=== PATIENT | male | born 1980 | race Caucasian/White ===

== ENCOUNTER → 2016-12-15 | Outpatient (CLI) | payer MEDICARE, OTHER ==
[2016-12-15 10:13] LABS: EKG EKG PERFORMED
[2016-12-15 10:40] LABS: Basophils # (A) 0.1 k/uL (0-0.2); Basophils % (A) 1 %; CH 32.8; CHCM 32.8; Eosinophils # (A) 0.2 k/uL (0-0.7); Eosinophils % (A) 2 %; HCT 39.7 % (39.0-53.0); HDW 2.41; Luc % (Auto) 3; Lymphocytes # (A) 1.5 k/uL (1.0-4.8); Lymphocytes % (A) 23 %; MCH 32.9 pg (25.0-35.0); MCHC 32.7 g/dL (31.0-37.0); MCV 100.5 fL (80.0-100.0); Mean Platelet Volume 7.4; Monocytes # (A) 0.3 k/uL (0-1.0); Monocytes % (A) 5 %; Neutrophils # (A) 4.5 k/uL (1.3-7.7); Neutrophils % (A) 67 %; RBC 3.95 m/uL (4.30-5.90); RDW 12.6 % (11.5-15.5); WBC 6.8 k/uL (3.8-10.6); WBC (Perox) 7.43
[2016-12-15 10:41] LABS: Luc # (Auto) 0.21
[2016-12-15 11:25] LABS: Anion Gap 12 mmol/L; Blood Urea Nitrogen 12 mg/dL (9-20); Calcium 9.3 mg/dL (8.4-10.2); Carbon Dioxide 22 mmol/L (22-30); Chloride 111 mmol/L (98-107); Glucose 82 mg/dL (74-99); Non-African American GFR(MDRD) >60 (>60 ml/min/1.73 sqM); Potassium 4.8 mmol/L (3.5-5.1); Sodium 145 mmol/L (137-145)
== END | disposition home or self-care (01) ==
LOC: LABPAT 09:30
PROVIDERS: ATTEND Orthopaedic Surgery
DX: Z01.810 Encounter for preprocedural cardiovascular examination (principal); I49.49 Other premature depolarization; I49.8 Other specified cardiac arrhythmias
CPT/HCPCS: 80048; 85025; 93005

== ENCOUNTER 2018-06-27 13:06 | Emergency (ER) | payer MEDICARE, OTHER ==
[2018-06-27] MEDS ORDERED: SODIUM CHLORIDE 0.9% 500 ML IV STA (13:20)
--- NOTE | 2018-06-27 13:23 | ED ---
General Adult HPI - General Stated complaint: Crohns Time Seen by Provider: 06/27/18 13:06 Source: RN notes reviewed - History of Present Illness Initial comments: This is a 37-year-old male who presents emergency Department with a past medical history significant for Crohn's. Patient comes in today stating that he has been coughing quite a bit today and in one of his coughing fits he came extremely short of breath. Patient states she did a breathing treatment home and then called EMS because he was worried because of the significant shortness of breath. Patient states currently is no longer short of breath because he coughed up a bunch of sputum. Patient states he also complains of some epigastric abdominal pain that occasionally radiates up into his chest. Patient states she has quite a bit of abdominal pain on and off because his Crohn's any would not normally come in for this. Since she was here for difficulty breathing he decides to mention it today. Patient denies any fever chills. Patient denies any injury or trauma recently. Patient denies any swelling to the legs or calf tenderness. - Related Data Home Medications Medication Instructions Recorded Confirmed oxyCODONE HCL/ACETAMINOPHEN 1 tab PO Q4-6H PRN 12/11/14 06/27/18 [Percocet 10-325 mg] Previous Rx's Medication Instructions Recorded Azithromycin [Zithromax Tri-Duane] 500 mg PO DAILY #3 tab 06/27/18 Allergies Allergy/AdvReac Type Severity Reaction Status Date / Time infliximab [From Remicade] Allergy Dyspnea Verified 06/27/18 13:14 lactose AdvReac Nausea & Verified 06/27/18 13:14 Vomiting & Diarrhea Review of Systems ROS Statement: Those systems with pertinent positive or pertinent negative responses have been documented in the HPI. ROS Other: All systems not noted in ROS Statement are negative. Past Medical History Past Medical History: GERD/Reflux, Hypertension, Osteoarthritis (OA), Rheumatoid Arthritis (RA) Additional Past Medical History / Comment(s): herniated discs, carpal tunnel, Crohns WITH OSTOMY PLACEMENT DECEMBER 15 2012 History of Any Multi-Drug Resistant Organisms: None Reported Past Surgical History: Bowel Resection Additional Past Surgical History / Comment(s): OSTOMY PLACEMENT DECEMBER 15 2012 Past Anesthesia/Blood Transfusion Reactions: No Reported Reaction Additional Past Anesthesia/Blood Transfusion Reaction / Comment(s): DELIRIUM Past Psychological History: Depression Smoking Status: Current every day smoker Past Alcohol Use History: None Reported Past Drug Use History: Marijuana - Past Family History Mother Family Medical History: Hypertension Father Family Medical History: CVA/TIA, Hypertension General Exam - General Exam Comments Initial Comments: GENERAL: Patient is well-developed and well-nourished. Patient is nontoxic and well- hydrated and is in no acute distress ENT: Neck is soft and supple. No significant lymphadenopathy is noted. Oropharynx is clear. Moist mucous membranes. Neck has full range of motion without eliciting any pain. EYES: The sclera were anicteric and conjunctiva were pink and moist. Extraocular movements were intact and pupils were equal round and reactive to light. Eyelids were unremarkable. PULMONARY: Unlabored respirations. Good breath sounds bilaterally. Patient has some rhonchi in the left base until he coughed and then it was clear. CARDIOVASCULAR: There is a regular rate and rhythm without any murmurs gallops or rubs. ABDOMEN: Soft and nontender with normal bowel sounds. Patient has ileostomy. SKIN: Skin is clear with no lesions or rashes and otherwise unremarkable. NEUROLOGIC: Patient is alert and oriented x3. Cranial nerves II through XII are grossly intact. Motor and sensory are also intact. Normal speech, volume and content. Symmetrical smile. MUSCULOSKELETAL: Normal extremities with adequate strength and full range of motion. LYMPHATICS: No significant lymphadenopathy is noted PSYCHIATRIC: Normal psychiatric evaluation. Course Vital Signs 06/27/18 13:19 Temperature 98.7 F Pulse Rate 73 Respiratory 20 Rate Blood Pressure 140/85 O2 Sat by Pulse 100 Oximetry Medical Decision Making - Medical Decision Making EKG shows normal sinus rhythm at 82 bpm OH interval is 136 QRS 76 QT interval 370 QTC is 432. Patient's EKG shows no ST segment elevation or depression or T wave abnormalities are noted. Patient's chest x-ray shows a nodule in the right upper lobe. Patient still coughing up some sputum so I will put the patient on antibiotics and have him follow-up with his primary medical care doctor. I will begin to reevaluate the patient he was sleeping soundly oxygenating in the high 90s without O2. - Lab Data Result diagrams: 06/27/18 13:26 06/27/18 13:26 Lab Results 06/27/18 06/27/18 06/27/18 Range/Units 13:26 13:26 13:26 WBC 9.9 (3.8-10.6) k/uL RBC 3.94 L (4.30-5.90) m/uL Hgb 13.0 (13.0-17.5) gm/dL Hct 39.4 (39.0-53.0) % MCV 99.8 (80.0-100.0) fL MCH 32.9 (25.0-35.0) pg MCHC 33.0 (31.0-37.0) g/dL RDW 12.3 (11.5-15.5) % Plt Count 176 (150-450) k/uL Neutrophils % 84 % Lymphocytes % 9 % Monocytes % 4 % Eosinophils % 1 % Basophils % 0 % Neutrophils # 8.4 H (1.3-7.7) k/uL Lymphocytes # 0.9 L (1.0-4.8) k/uL Monocytes # 0.4 (0-1.0) k/uL Eosinophils # 0.1 (0-0.7) k/uL Basophils # 0.0 (0-0.2) k/uL PT (9.0-12.0) sec INR (<1.2) APTT (22.0-30.0) sec D-Dimer (<0.60) mg/L FEU Sodium 142 (137-145) mmol/L Potassium 4.2 (3.5-5.1) mmol/L Chloride 110 H (98-107) mmol/L Carbon Dioxide 24 (22-30) mmol/L Anion Gap 8 mmol/L BUN 14 (9-20) mg/dL Creatinine 0.88 (0.66-1.25) mg/dL Est GFR (CKD-EPI)AfAm >90 (>60 ml/min/1.73 sqM) Est GFR (CKD-EPI)NonAf >90 (>60 ml/min/1.73 sqM) Glucose 96 (74-99) mg/dL Calcium 9.0 (8.4-10.2) mg/dL Magnesium 1.7 (1.6-2.3) mg/dL Total Bilirubin 0.5 (0.2-1.3) mg/dL AST 22 (17-59) U/L ALT 25 (21-72) U/L Alkaline Phosphatase 53 (38-126) U/L Total Creatine Kinase 113 (55-170) U/L CK-MB (CK-2) 0.6 (0.0-2.4) ng/mL CK-MB (CK-2) Rel Index 0.5 Troponin I <0.012 (0.000-0.034) ng/mL Total Protein 6.9 (6.3-8.2) g/dL Albumin 3.9 (3.5-5.0) g/dL Amylase 94 (30-110) U/L Lipase 154 (23-300) U/L 06/27/18 Range/Units 13:26 WBC (3.8-10.6) k/uL RBC (4.30-5.90) m/uL Hgb (13.0-17.5) gm/dL Hct (39.0-53.0) % MCV (80.0-100.0) fL MCH (25.0-35.0) pg MCHC (31.0-37.0) g/dL RDW (11.5-15.5) % Plt Count (150-450) k/uL Neutrophils % % Lymphocytes % % Monocytes % % Eosinophils % % Basophils % % Neutrophils # (1.3-7.7) k/uL Lymphocytes # (1.0-4.8) k/uL Monocytes # (0-1.0) k/uL Eosinophils # (0-0.7) k/uL Basophils # (0-0.2) k/uL PT 9.8 (9.0-12.0) sec INR 1.0 (<1.2) APTT 27.2 (22.0-30.0) sec D-Dimer 0.24 (<0.60) mg/L FEU Sodium (137-145) mmol/L Potassium (3.5-5.1) mmol/L Chloride (98-107) mmol/L Carbon Dioxide (22-30) mmol/L Anion Gap mmol/L BUN (9-20) mg/dL Creatinine (0.66-1.25) mg/dL Est GFR (CKD-EPI)AfAm (>60 ml/min/1.73 sqM) Est GFR (CKD-EPI)NonAf (>60 ml/min/1.73 sqM) Glucose (74-99) mg/dL Calcium (8.4-10.2) mg/dL Magnesium (1.6-2.3) mg/dL Total Bilirubin (0.2-1.3) mg/dL AST (17-59) U/L ALT (21-72) U/L Alkaline Phosphatase (38-126) U/L Total Creatine Kinase (55-170) U/L CK-MB (CK-2) (0.0-2.4) ng/mL CK-MB (CK-2) Rel Index Troponin I (0.000-0.034) ng/mL Total Protein (6.3-8.2) g/dL Albumin (3.5-5.0) g/dL Amylase (30-110) U/L Lipase (23-300) U/L Disposition Clinical Impression: Acute bronchitis Disposition: HOME SELF-CARE Condition: Good Instructions: Acute Bronchitis (ED) Prescriptions: Azithromycin [Zithromax Tri-Duane] 500 mg PO DAILY #3 tab Is patient prescribed a controlled substance at d/c from ED?: No Referrals: Cornelius Krishnan DO [Primary Care Provider] - 1-2 days Time of Disposition: 15:32
[2018-06-27 13:25] VITALS: TEMP 98.7
[2018-06-27 13:41] LABS: Basophils % (A) 0 %; Eosinophils # (A) 0.1 k/uL (0-0.7); Eosinophils % (A) 1 %; HCT 39.4 % (39.0-53.0); Lymphocytes # (A) 0.9 k/uL (1.0-4.8); Lymphocytes % (A) 9 %; MCH 32.9 pg (25.0-35.0); MCV 99.8 fL (80.0-100.0); Mean Platelet Volume 6.8; Monocytes # (A) 0.4 k/uL (0-1.0); Monocytes % (A) 4 %; Neutrophils # (A) 8.4 k/uL (1.3-7.7); Neutrophils % (A) 84 %; Platelet Count 176 k/uL (150-450); RBC 3.94 m/uL (4.30-5.90); RDW 12.3 % (11.5-15.5); WBC 9.9 k/uL (3.8-10.6)
[2018-06-27 13:51] LABS: ALT 25 U/L (21-72); AST 22 U/L (17-59); Albumin 3.9 g/dL (3.5-5.0); Alkaline Phosphatase 53 U/L (38-126); Amylase 94 U/L (30-110); Anion Gap 8 mmol/L; Blood Urea Nitrogen 14 mg/dL (9-20); Carbon Dioxide 24 mmol/L (22-30); Chloride 110 mmol/L (98-107); Glucose 96 mg/dL (74-99); Lipase 154 U/L (23-300); Magnesium 1.7 mg/dL (1.6-2.3); Potassium 4.2 mmol/L (3.5-5.1); Sodium 142 mmol/L (137-145); Total Bilirubin 0.5 mg/dL (0.2-1.3); Total Protein 6.9 g/dL (6.3-8.2)
[2018-06-27 13:52] LABS: D-Dimer 0.24 mg/L FEU (<0.60); Prothrombin Time 9.8 sec (9.0-12.0)
[2018-06-27 13:53] LABS: Partial Thromboplastin Time 27.2 sec (22.0-30.0)
[2018-06-27 14:03] LABS: Creatine Kinase 113 U/L (55-170)
[2018-06-27 14:16] LABS: Creatine Kinase MB 0.6 ng/mL (0.0-2.4); Troponin I <0.012 ng/mL (0.000-0.034)
--- NOTE | 2018-06-27 14:32 | XR ---
EXAMINATION TYPE: XR chest 2V DATE OF EXAM: 06/27/2018 COMPARISON: April 2016 HISTORY: Chest pain TECHNIQUE: Frontal and lateral views of the chest are obtained. FINDINGS: There is no focal air space opacity. Nodular density right upper lobe may reflect developing infiltrate. Nodule of other etiology is not e xcluded. Correlate clinically and progress studies are advised. The cardiac silhouette size is within normal limits. The osseous structures are grossly intact. IMPRESSION: 1. Nodular density right upper lobe may reflect developing infiltrate. Nodule of other etiology is n ot excluded. Correlate clinically and progress studies are advised.
[2018-06-27 15:46] VITALS: BP 155/87; PULSE 58; RESP 18
== END 2018-06-27 15:47 | disposition home or self-care (01) ==
LOC: EC 13:06
DX: J20.9 Acute bronchitis, unspecified (principal); R91.1 Solitary pulmonary nodule; M06.9 Rheumatoid arthritis, unspecified; F17.200 Nicotine dependence, unspecified, uncomplicated; Z87.19 Personal history of other diseases of the digestive system; Z88.8 Allergy status to other drugs, medicaments and biological substances; Z91.011 Allergy to milk products
CPT/HCPCS: 36415; 71046; 80053; 82150; 82550; 82553; 83690; 83735; 84484; 85025; 85379; 85610; 85730; 93005; 96360; 99285

== ENCOUNTER 2020-12-19 15:52 | Emergency (ER) | payer MEDICARE, OTHER ==
--- NOTE | 2020-12-19 16:39 | ED ---
Abdominal Pain HPI - General Chief Complaint: Abdominal Pain Stated Complaint: abd pain Time Seen by Provider: 12/19/20 16:06 Source: RN/, RN notes reviewed Mode of arrival: EMS Limitations: no limitations - History of Present Illness Initial Comments: 40-year-old male patient presents to the emergency room via EMS for an exacerbation of his Crohn's disease. Patient has a history of GERD, hypertension, osteoarthritis, rheumatoid arthritis, surgical history of bowel resection in 2012 with ostomy placement for Crohn's. Patient states the past 3 days has had 48 episodes of diarrhea requiring colostomy emptying, in addition to 6 episodes of vomiting yesterday. Patient denies fever or sick contacts. Temperature of 98.2 heart rate 76, blood pressure 121/67 story rate of 18 patient states 8 out of 10 pain after 5 mg of IV morphine by EMS. Patient well- appearing states was seen at [facility] yesterday had a CAT scan and lab work done and was discharged home to follow up. Patient states has primary care doctor appointment tomorrow. Sees Dr. Valverde for gastroenterology. Patient states only came to the emergency room because of pain control. In the past Ania has worked. Complaint: abdominal pain -: days(s) (3) Location: diffuse Radiation: L flank Severity: severe Severity scale (1-10): 8 Quality: sharp Consistency: constant Improves With: nothing Worsens With: vomiting Context: other (crohns disease for 31 years) Associated Symptoms: nausea, vomiting (6 episodes vomiting yesterday, needing to empty colostomy 6-8 times a day), diarrhea Treatments Prior to Arrival: other (morphine by EMS) - Related Data Home Medications Medication Instructions Recorded Confirmed oxyCODONE HCL/ACETAMINOPHEN 1 tab PO Q4-6H PRN 12/11/14 06/27/18 [Percocet 10-325 mg] Albuterol Sulfate [Ventolin HFA] 2 puff INHALATION RT-Q4H PRN 12/19/20 12/19/20 Dicyclomine [Bentyl] 20 mg PO Q6H PRN 12/19/20 12/19/20 Omeprazole [PriLOSEC] 20 mg PO DAILY 12/19/20 12/19/20 amLODIPine [Norvasc] 10 mg PO DAILY 12/19/20 12/19/20 buPROPion XL [Wellbutrin XL] 150 mg PO DAILY 12/19/20 12/19/20 busPIRone HCl [Buspar] 10 mg PO DAILY 12/19/20 12/19/20 predniSONE 50 mg PO DAILY 12/19/20 12/19/20 Allergies Allergy/AdvReac Type Severity Reaction Status Date / Time infliximab [From Remicade] Allergy Anaphylaxis Verified 12/19/20 18:38 lisinopril Allergy Anaphylaxis Verified 12/19/20 18:38 lactose AdvReac Nausea & Verified 12/19/20 18:38 Vomiting & Diarrhea Review of Systems ROS Statement: Those systems with pertinent positive or pertinent negative responses have been documented in the HPI. ROS Other: All systems not noted in ROS Statement are negative. Past Medical History Past Medical History: GERD/Reflux, Hypertension, Osteoarthritis (OA), Rheumatoid Arthritis (RA) Additional Past Medical History / Comment(s): herniated discs, carpal tunnel, Crohns WITH OSTOMY PLACEMENT DECEMBER 15 2012 History of Any Multi-Drug Resistant Organisms: None Reported Past Surgical History: Bowel Resection Additional Past Surgical History / Comment(s): OSTOMY PLACEMENT DECEMBER 15 2012 Past Anesthesia/Blood Transfusion Reactions: No Reported Reaction Additional Past Anesthesia/Blood Transfusion Reaction / Comment(s): DELIRIUM Past Psychological History: Depression Smoking Status: Former smoker Past Alcohol Use History: None Reported Past Drug Use History: Marijuana - Past Family History Mother Family Medical History: Hypertension Father Family Medical History: CVA/TIA, Hypertension General Exam Limitations: no limitations General appearance: alert, in no apparent distress Head exam: Present: atraumatic, normocephalic, normal inspection Eye exam: Present: normal appearance, PERRL, EOMI. Absent: scleral icterus, conjunctival injection, periorbital swelling ENT exam: Present: normal exam, mucous membranes moist Neck exam: Present: normal inspection, full ROM. Absent: tenderness, meningismus, lymphadenopathy, thyromegaly Respiratory exam: Present: normal lung sounds bilaterally. Absent: respiratory distress, wheezes, rales, rhonchi, stridor Cardiovascular Exam: Present: regular rate, normal rhythm, normal heart sounds. Absent: systolic murmur, diastolic murmur, rubs, gallop, clicks GI/Abdominal exam: Present: soft, normal bowel sounds, hyperactive bowel sounds, other (colostomy with yellow/brown liquid stool). Absent: distended, tenderness, guarding, rebound, rigid, mass, hernia Back exam: Present: normal inspection, full ROM, CVA tenderness (L). Absent: tenderness, CVA tenderness (R), rash noted Neurological exam: Present: alert, oriented X3, CN II-XII intact Psychiatric exam: Present: normal affect, normal mood Skin exam: Present: warm, dry, intact, normal color. Absent: rash Course Vital Signs 12/19/20 12/19/20 15:57 18:01 Temperature 98.2 F 98.1 F Pulse Rate 76 78 Respiratory 18 16 Rate Blood Pressure 121/67 132/72 O2 Sat by Pulse 98 99 Oximetry - Reevaluation(s) Reevaluation #1: 12/19/20 18:11 Patient states not feeling better after Zofran and Dilaudid. Did not get relief from morphine by EMS. Patient states pain now is in left lower quadrant and radiates down left leg. Case discussed with Dr. Farias, Records requested from [facility] from yesterday were patient had lab work and a CT of the abdomen. Time: 18:11 Medical Decision Making - Medical Decision Making Case discussed with Dr. Farias. Records obtained from [facility], results stated on 12/17/2020, WBC count was 18.3, hemoglobin 14.2 hematocrit 42.7, BUN of 16 creatinine 1.0 anion gap of 15.0, lipase 191, troponin 0.017, potassium of 5.2, CT impression was no significant acute finding seen to account for patient's clinical symptoms. Stable right ostomy. Spoke with patient at length and assured him that he is not dehydrated, there is no ketones in his urine, wbc down to 10.8, and his hemoglobin and hematocrit are also stable. Patient agreeable to being discharged home and following up with GI this week. - Lab Data Result diagrams: 12/19/20 16:54 12/19/20 16:54 Lab Results 12/19/20 12/19/20 12/19/20 Range/Units 16:54 16:54 16:54 WBC 10.8 H (3.8-10.6) k/uL RBC 4.10 L (4.30-5.90) m/uL Hgb 13.1 (13.0-17.5) gm/dL Hct 39.4 (39.0-53.0) % MCV 96.2 (80.0-100.0) fL MCH 32.1 (25.0-35.0) pg MCHC 33.3 (31.0-37.0) g/dL RDW 13.1 (11.5-15.5) % Plt Count 210 (150-450) k/uL MPV 6.7 Neutrophils % 91 % Lymphocytes % 4 % Monocytes % 3 % Eosinophils % 1 % Basophils % 0 % Neutrophils # 9.8 H (1.3-7.7) k/uL Lymphocytes # 0.4 L (1.0-4.8) k/uL Monocytes # 0.3 (0-1.0) k/uL Eosinophils # 0.1 (0-0.7) k/uL Basophils # 0.0 (0-0.2) k/uL Sodium 138 (137-145) mmol/L Potassium 4.7 (3.5-5.1) mmol/L Chloride 106 (98-107) mmol/L Carbon Dioxide 27 (22-30) mmol/L Anion Gap 5 mmol/L BUN 19 (9-20) mg/dL Creatinine 0.80 (0.66-1.25) mg/dL Est GFR (CKD-EPI)AfAm >90 (>60 ml/min/1.73 sqM) Est GFR (CKD-EPI)NonAf >90 (>60 ml/min/1.73 sqM) Glucose 127 H (74-99) mg/dL Plasma Lactic Acid Jonathan (0.7-2.0) mmol/L Calcium 9.4 (8.4-10.2) mg/dL Total Bilirubin 0.4 (0.2-1.3) mg/dL AST 23 (17-59) U/L ALT 12 (4-49) U/L Alkaline Phosphatase 38 (38-126) U/L Total Protein 6.7 (6.3-8.2) g/dL Albumin 4.2 (3.5-5.0) g/dL Amylase 109 (30-110) U/L Lipase 287 (23-300) U/L Urine Color Yellow Urine Appearance Clear (Clear) Urine pH 5.5 (5.0-8.0) Ur Specific [place] 1.020 (1.001-1.035) Urine Protein Trace H (Negative) Urine Glucose (UA) Negative (Negative) Urine Ketones Negative (Negative) Urine Blood Trace H (Negative) Urine Nitrite Negative (Negative) Urine Bilirubin Negative (Negative) Urine Urobilinogen <2.0 (<2.0) mg/dL Ur Leukocyte Esterase Negative (Negative) Urine RBC 1 (0-5) /hpf Urine WBC <1 (0-5) /hpf Urine Mucus Rare H (None) /hpf 12/19/20 Range/Units 16:54 WBC (3.8-10.6) k/uL RBC (4.30-5.90) m/uL Hgb (13.0-17.5) gm/dL Hct (39.0-53.0) % MCV (80.0-100.0) fL MCH (25.0-35.0) pg MCHC (31.0-37.0) g/dL RDW (11.5-15.5) % Plt Count (150-450) k/uL MPV Neutrophils % % Lymphocytes % % Monocytes % % Eosinophils % % Basophils % % Neutrophils # (1.3-7.7) k/uL Lymphocytes # (1.0-4.8) k/uL Monocytes # (0-1.0) k/uL Eosinophils # (0-0.7) k/uL Basophils # (0-0.2) k/uL Sodium (137-145) mmol/L Potassium (3.5-5.1) mmol/L Chloride (98-107) mmol/L Carbon Dioxide (22-30) mmol/L Anion Gap mmol/L BUN (9-20) mg/dL Creatinine (0.66-1.25) mg/dL Est GFR (CKD-EPI)AfAm (>60 ml/min/1.73 sqM) Est GFR (CKD-EPI)NonAf (>60 ml/min/1.73 sqM) Glucose (74-99) mg/dL Plasma Lactic Acid Jonathan 1.0 (0.7-2.0) mmol/L Calcium (8.4-10.2) mg/dL Total Bilirubin (0.2-1.3) mg/dL AST (17-59) U/L ALT (4-49) U/L Alkaline Phosphatase (38-126) U/L Total Protein (6.3-8.2) g/dL Albumin (3.5-5.0) g/dL Amylase (30-110) U/L Lipase (23-300) U/L Urine Color Urine Appearance (Clear) Urine pH (5.0-8.0) Ur Specific [place] (1.001-1.035) Urine Protein (Negative) Urine Glucose (UA) (Negative) Urine Ketones (Negative) Urine Blood (Negative) Urine Nitrite (Negative) Urine Bilirubin (Negative) Urine Urobilinogen (<2.0) mg/dL Ur Leukocyte Esterase (Negative) Urine RBC (0-5) /hpf Urine WBC (0-5) /hpf Urine Mucus (None) /hpf Disposition Clinical Impression: Abdominal pain in male Disposition: HOME SELF-CARE Condition: Good Instructions (If sedation given, give patient instructions): Abdominal Pain (ED) Additional Instructions: Follow-up with her psychometric examiner this week. Continue to increase fluids, return if fever or worsening pain Is patient prescribed a controlled substance at d/c from ED?: No Referrals: Emile Rodríguez MD [Primary Care Provider] - 1-2 days Rene Ray MD [STAFF PHYSICIAN] - 1-2 days Time of Disposition: 18:48
[2020-12-19 17:03] LABS: Basophils % (A) 0 %; Eosinophils # (A) 0.1 k/uL (0-0.7); Eosinophils % (A) 1 %; HCT 39.4 % (39.0-53.0); HGB 13.1 gm/dL (13.0-17.5); Lymphocytes # (A) 0.4 k/uL (1.0-4.8); Lymphocytes % (A) 4 %; MCH 32.1 pg (25.0-35.0); MCHC 33.3 g/dL (31.0-37.0); MCV 96.2 fL (80.0-100.0); Mean Platelet Volume 6.7; Monocytes # (A) 0.3 k/uL (0-1.0); Monocytes % (A) 3 %; Neutrophils # (A) 9.8 k/uL (1.3-7.7); Neutrophils % (A) 91 %; Platelet Count 210 k/uL (150-450); RDW 13.1 % (11.5-15.5); WBC 10.8 k/uL (3.8-10.6)
[2020-12-19 17:08] LABS: Appearance,Urine Clear (Clear); Bilirubin,Urine Negative (Negative); Blood,Urine Trace (Negative); Color,Urine Yellow; Glucose,Urine (UA) Negative (Negative); Ketones,Urine Negative (Negative); Leukocyte Esterase,Urine Negative (Negative); Mucus,Urine Rare /hpf; Nitrite,Urine Negative (Negative); PH, Urine 5.5 (5.0-8.0); Protein,Urine Trace (Negative); RBC,Urine 1 /hpf (0-5); Urobilinogen,Urine <2.0 mg/dL (<2.0); WBC,Urine <1 /hpf (0-5)
[2020-12-19 17:12] LABS: ALT 12 U/L (4-49); AST 23 U/L (17-59); African American GFR (CKD) >90 (>60 ml/min/1.73 sqM); Albumin 4.2 g/dL (3.5-5.0); Alkaline Phosphatase 38 U/L (38-126); Amylase 109 U/L (30-110); Anion Gap 5 mmol/L; Blood Urea Nitrogen 19 mg/dL (9-20); Calcium 9.4 mg/dL (8.4-10.2); Carbon Dioxide 27 mmol/L (22-30); Chloride 106 mmol/L (98-107); Glucose 127 mg/dL (74-99); Lipase 287 U/L (23-300); Non-African American GFR(CKD) >90 (>60 ml/min/1.73 sqM); Potassium 4.7 mmol/L (3.5-5.1); Sodium 138 mmol/L (137-145); Total Bilirubin 0.4 mg/dL (0.2-1.3); Total Protein 6.7 g/dL (6.3-8.2)
--- NOTE | 2020-12-19 17:25 | XR ---
EXAM: Abdomen radiograph. HISTORY: Pain. TECHNIQUE: Upright AP view. COMPARISON: 12/17/2015. FINDINGS: There is paucity of bowel gas with a nonobstructive pattern. No pneumoperitoneum. There are no pathol ogic calcifications. No acute osseous abnormality seen. IMPRESSION: No acute process.
[2020-12-19] MEDS ORDERED: ONDANSETRON 4 MG/2 ML VIAL IVP STA (17:33)
[2020-12-19] MEDS ORDERED: HYDROmorphone 0.5 MG/0.5 ML SYRINGE IVP STA (17:33)
[2020-12-19 18:02] VITALS: RESP 16
[2020-12-19 19:01] VITALS: BP 124/82; PULSE 63; TEMP 98
== END 2020-12-19 19:01 | disposition home or self-care (01) ==
LOC: EC 15:52
DX: R10.9 Unspecified abdominal pain (principal); I10 Essential (primary) hypertension; K21.9 Gastro-esophageal reflux disease without esophagitis; M19.90 Unspecified osteoarthritis, unspecified site; F12.90 Cannabis use, unspecified, uncomplicated; F32.9 Major depressive disorder, single episode, unspecified; Z79.52 Long term (current) use of systemic steroids; Z79.899 Other long term (current) drug therapy; Z87.891 Personal history of nicotine dependence
CPT/HCPCS: 36415; 80053; 82150; 83605; 83690; 85025; 81001; 74018; 99284; 96374; 96375; J2405; J1170

== ENCOUNTER 2021-02-02 08:32 | Emergency (ER) | payer MEDICARE, OTHER ==
[2021-02-02] MEDS ORDERED: methylPREDNISolone SOD SUCCI 125 MG/2 ML VIAL IV STA ×2 (08:45→09:38)
[2021-02-02] MEDS ORDERED: SODIUM CHLORIDE 0.9% 1,000 ML IV STA (08:45)
[2021-02-02] MEDS ORDERED: ONDANSETRON 4 MG/2 ML VIAL IVP STA (08:45)
--- NOTE | 2021-02-02 09:10 | ED ---
Abdominal Pain HPI - General Chief Complaint: Abdominal Pain Stated Complaint: abd pain Time Seen by Provider: 02/02/21 08:35 Source: patient, EMS, RN notes reviewed Mode of arrival: ambulatory Limitations: no limitations - History of Present Illness Initial Comments: 40-year-old male presents emergency Department via EMS with chief complaint abdominal pain. Patient states that he has a history of Crohn's feels like he is having Crohn's flareup. He believes this started after not taking his prednisone for a few [place]. He states takes 50 mg of prednisone daily. Patient does have an ileostomy states that he has high output which is normal for him. Patient denies any fevers chills no chest pain or shortness of breath. Patient had decreased urine output states that he did have renal failure in the past but states he was unsure what caused it at that time. - Related Data Home Medications Medication Instructions Recorded Confirmed oxyCODONE HCL/ACETAMINOPHEN 1 tab PO TID PRN 12/11/14 02/02/21 [Percocet 10-325 mg] Albuterol Sulfate [Ventolin HFA] 2 puff INHALATION RT-Q4H PRN 12/19/20 02/02/21 Dicyclomine [Bentyl] 20 mg PO Q6H PRN 12/19/20 02/02/21 Omeprazole [PriLOSEC] 20 mg PO DAILY 12/19/20 02/02/21 amLODIPine [Norvasc] 10 mg PO DAILY 12/19/20 02/02/21 buPROPion XL [Wellbutrin XL] 150 mg PO DAILY 12/19/20 02/02/21 busPIRone HCl [Buspar] 10 mg PO BID PRN 12/19/20 02/02/21 predniSONE 50 mg PO DAILY 12/19/20 02/02/21 Previous Rx's Medication Instructions Recorded Ondansetron Odt [Zofran Odt] 4 mg PO Q8HR PRN #10 tab 02/02/21 Allergies Allergy/AdvReac Type Severity Reaction Status Date / Time infliximab [From Remicade] Allergy Anaphylaxis Verified 02/02/21 09:48 lisinopril Allergy Anaphylaxis Verified 02/02/21 09:48 lactose AdvReac Nausea & Verified 02/02/21 09:48 Vomiting & Diarrhea Review of Systems ROS Statement: Those systems with pertinent positive or pertinent negative responses have been documented in the HPI. ROS Other: All systems not noted in ROS Statement are negative. Past Medical History Past Medical History: GERD/Reflux, Hypertension, Osteoarthritis (OA), Rheumatoid Arthritis (RA) Additional Past Medical History / Comment(s): herniated discs, carpal tunnel, Crohns WITH OSTOMY PLACEMENT DECEMBER 15 2012 History of Any Multi-Drug Resistant Organisms: None Reported Past Surgical History: Bowel Resection Additional Past Surgical History / Comment(s): OSTOMY PLACEMENT DECEMBER 15 2012 Past Anesthesia/Blood Transfusion Reactions: No Reported Reaction Additional Past Anesthesia/Blood Transfusion Reaction / Comment(s): DELIRIUM Past Psychological History: Depression Smoking Status: Former smoker Past Alcohol Use History: None Reported Past Drug Use History: Marijuana - Past Family History Mother Family Medical History: Hypertension Father Family Medical History: CVA/TIA, Hypertension General Exam Limitations: no limitations General appearance: alert, in no apparent distress Head exam: Present: atraumatic, normocephalic, normal inspection Eye exam: Present: normal appearance, PERRL, EOMI. Absent: scleral icterus, conjunctival injection, periorbital swelling Respiratory exam: Present: normal lung sounds bilaterally. Absent: respiratory distress, wheezes, rales, rhonchi, stridor Cardiovascular Exam: Present: regular rate, normal rhythm, normal heart sounds. Absent: systolic murmur, diastolic murmur, rubs, gallop, clicks GI/Abdominal exam: Present: soft, tenderness (Mild left lower quadrant with some diffuse minimal tenderness), normal bowel sounds. Absent: distended, guarding, rebound, rigid Back exam: Absent: CVA tenderness (R), CVA tenderness (L) Neurological exam: Present: alert Skin exam: Present: warm, dry, intact, normal color. Absent: rash Course Vital Signs 02/02/21 02/02/21 02/02/21 08:41 08:56 09:34 Temperature 98.7 F Pulse Rate 82 74 Respiratory 20 Rate Blood Pressure 120/89 123/80 O2 Sat by Pulse 98 Oximetry 02/02/21 11:08 Temperature Pulse Rate 85 Respiratory 18 Rate Blood Pressure 155/72 O2 Sat by Pulse 98 Oximetry Medical Decision Making - Medical Decision Making 40-year-old presented for abdominal pain. CT shows mildly dilated pancreatic duct he has no upper abdominal pain. Patient will follow palpation for ERCP. Patient was given pain meds fluids antiemetics feels better will be discharged stable condition. Patient advised to follow-up on Wednesday return for any worsening change in symptoms. Patient agrees this plan. - Lab Data Result diagrams: 02/02/21 08:58 02/02/21 08:58 Lab Results 02/02/21 02/02/21 02/02/21 Range/Units 08:58 08:58 08:58 WBC 14.9 H (3.8-10.6) k/uL RBC 4.41 (4.30-5.90) m/uL Hgb 14.5 (13.0-17.5) gm/dL Hct 41.6 (39.0-53.0) % MCV 94.4 (80.0-100.0) fL MCH 32.9 (25.0-35.0) pg MCHC 34.8 (31.0-37.0) g/dL RDW 12.3 (11.5-15.5) % Plt Count 171 (150-450) k/uL MPV 6.7 Neutrophils % 84 % Lymphocytes % 6 % Monocytes % 7 % Eosinophils % 1 % Basophils % 0 % Neutrophils # 12.5 H (1.3-7.7) k/uL Lymphocytes # 0.9 L (1.0-4.8) k/uL Monocytes # 1.1 H (0-1.0) k/uL Eosinophils # 0.2 (0-0.7) k/uL Basophils # 0.0 (0-0.2) k/uL Sodium 136 L (137-145) mmol/L Potassium 4.6 (3.5-5.1) mmol/L Chloride 104 (98-107) mmol/L Carbon Dioxide 24 (22-30) mmol/L Anion Gap 8 mmol/L BUN 21 H (9-20) mg/dL Creatinine 0.98 (0.66-1.25) mg/dL Est GFR (CKD-EPI)AfAm >90 (>60 ml/min/1.73 sqM) Est GFR (CKD-EPI)NonAf >90 (>60 ml/min/1.73 sqM) Glucose 82 (74-99) mg/dL Plasma Lactic Acid Jonathan 0.9 (0.7-2.0) mmol/L Calcium 9.2 (8.4-10.2) mg/dL Total Bilirubin 0.9 (0.2-1.3) mg/dL AST 32 (17-59) U/L ALT 12 (4-49) U/L Alkaline Phosphatase 38 (38-126) U/L Total Protein 6.8 (6.3-8.2) g/dL Albumin 4.1 (3.5-5.0) g/dL Amylase 92 (30-110) U/L Lipase 148 (23-300) U/L Disposition Clinical Impression: Abdominal pain, Crohn's disease Disposition: HOME SELF-CARE Condition: Stable Instructions (If sedation given, give patient instructions): Abdominal Pain (ED) Additional Instructions: Please return to the Emergency Department if symptoms worsen or any other concerns. Prescriptions: Ondansetron Odt [Zofran Odt] 4 mg PO Q8HR PRN #10 tab PRN Reason: Nausea Is patient prescribed a controlled substance at d/c from ED?: No Referrals: Emile Rodríguez MD [Primary Care Provider] - 1-2 days Rene Ray MD [STAFF PHYSICIAN] - 1-2 days Time of Disposition: 11:11
[2021-02-02] MEDS ORDERED: MORPHINE SULFATE 4 MG/ML SYRINGE IVP STA (09:11)
[2021-02-02 09:27] LABS: Basophils % (A) 0 %; Eosinophils # (A) 0.2 k/uL (0-0.7); Eosinophils % (A) 1 %; HCT 41.6 % (39.0-53.0); HGB 14.5 gm/dL (13.0-17.5); Lymphocytes # (A) 0.9 k/uL (1.0-4.8); Lymphocytes % (A) 6 %; MCH 32.9 pg (25.0-35.0); MCHC 34.8 g/dL (31.0-37.0); MCV 94.4 fL (80.0-100.0); Mean Platelet Volume 6.7; Monocytes # (A) 1.1 k/uL (0-1.0); Monocytes % (A) 7 %; Neutrophils # (A) 12.5 k/uL (1.3-7.7); Neutrophils % (A) 84 %; Platelet Count 171 k/uL (150-450); RBC 4.41 m/uL (4.30-5.90); RDW 12.3 % (11.5-15.5); WBC 14.9 k/uL (3.8-10.6)
[2021-02-02 09:42] LABS: ALT 12 U/L (4-49); African American GFR (CKD) >90 (>60 ml/min/1.73 sqM); Albumin 4.1 g/dL (3.5-5.0); Amylase 92 U/L (30-110); Anion Gap 8 mmol/L; Blood Urea Nitrogen 21 mg/dL (9-20); Calcium 9.2 mg/dL (8.4-10.2); Carbon Dioxide 24 mmol/L (22-30); Chloride 104 mmol/L (98-107); Glucose 82 mg/dL (74-99); Lipase 148 U/L (23-300); Non-African American GFR(CKD) >90 (>60 ml/min/1.73 sqM); Sodium 136 mmol/L (137-145); Total Bilirubin 0.9 mg/dL (0.2-1.3); Total Protein 6.8 g/dL (6.3-8.2)
[2021-02-02 09:48] LABS: AST 32 U/L (17-59); Alkaline Phosphatase 38 U/L (38-126); Potassium 4.6 mmol/L (3.5-5.1)
--- NOTE | 2021-02-02 11:07 | CT ---
EXAMINATION TYPE: CT abdomen pelvis w con DATE OF EXAM: 02/02/2021 COMPARISON: 10/21/2015 INDICATION: Abdominal pain with nausea DLP: 548 mGycm, Automated exposure control for dose reduction was used. CONTRAST: 100 mL of Isovue 300. Study performed without Oral Contrast TECHNIQUE: Axial images were obtained from above the diaphragm to the pubic rami in the axial plane a t 5 mm thick sections. Reconstructed images are reviewed on the computer in the coronal plane. FINDINGS: Limited CT sections are obtained the lung bases. The lung bases are clear. CT ABDOMEN: There is an ostomy in the right lower quadrant. Liver: Normal Spleen: Normal Pancreas: Pancreatic duct within the head and body are prominent. No abrupt cut off is identified. Co nsider follow-up with ERCP. Adrenal glands: The adrenal glands are normal. Gallbladder: Normal Kidneys: No masses are evident. No hydronephrosis is present. No cysts are present. Delayed images were obtained through the kidneys, which remain unremarkable. Aorta: Normal Inferior vena cava: Normal. CT PELVIS: Loops of bowel within the abdomen and pelvis are normal. There is been a colectomy. Rectal stump is u nremarkable. Ileostomy is in the right lower quadrant. The study is without oral contrast limiting evaluation. Appendix: Not visualized Urinary bladder: Normal. Genitourinary structures: Osseous prominent. Some prostate calcification is present. Osseous structures: No suspicious lytic or sclerotic lesions. IMPRESSIONS: 1. Prominent pancreatic duct. Consider follow-up with ERCP. 2. Right lower quadrant ileostomy. 3. No suspicious acute changes within the abdomen and pelvis otherwise evident.
[2021-02-02] MEDS ORDERED: ACET/COD 300 MG/30 MG STARTER PACK 6 TAB BTL PO STA (11:11)
[2021-02-02 11:39] VITALS: BP 122/80; PULSE 71; RESP 16; TEMP 98.4
== END 2021-02-02 11:47 | disposition home or self-care (01) ==
LOC: EC 08:32
DX: K50.90 Crohn's disease, unspecified, without complications (principal); I10 Essential (primary) hypertension; K21.9 Gastro-esophageal reflux disease without esophagitis; M06.9 Rheumatoid arthritis, unspecified; Z79.52 Long term (current) use of systemic steroids; Z87.891 Personal history of nicotine dependence; F12.90 Cannabis use, unspecified, uncomplicated
CPT/HCPCS: 80053; 82150; 83605; 83690; 85025; 74177; 99284; 96374; 96375; 96361 ×3; J2270; J2930; Q9967

== ENCOUNTER 2021-02-12 17:13 | Emergency (ER) | payer MEDICARE, OTHER ==
[2021-02-12 17:18] VITALS: TEMP 98
[2021-02-12] MEDS ORDERED: ONDANSETRON 4 MG/2 ML VIAL IVP STA (18:06)
[2021-02-12] MEDS ORDERED: KETOROLAC 15 MG/ML 1 ML VIAL IVP STA (18:06)
[2021-02-12] MEDS ORDERED: SODIUM CHLORIDE 0.9% 1,000 ML IV STA (18:06)
--- NOTE | 2021-02-12 18:31 | ED ---
Abdominal Pain HPI - General Chief Complaint: Abdominal Pain Stated Complaint: lt sided abd pain Time Seen by Provider: 02/12/21 17:39 Source: patient Mode of arrival: ambulatory Limitations: no limitations - History of Present Illness Initial Comments: Patient is a 40-year-old male with history of Crohn's, presenting to the emergency Department with complaints of intermittent left-sided abdominal pain for the last 2 weeks. Patient was seen in the ER 10 days ago for similar complaint, he had normal workup, normal CT. He was also follow up with his GI doctor but has not yet, said he keeps forgetting to call. He admits to some nausea, some intermittent vomiting. He states he has been taking his medications as prescribed. He states he's been able to tolerate some fluids, he is able to hold down liquids. He denies any fevers or chills, no chest pain or shortness of breath. He states he's also been having some irritation around his ileostomy. Patient has no further complaints at this time. Upon arrival to the ER his vital signs are stable. - Related Data Home Medications Medication Instructions Recorded Confirmed oxyCODONE HCL/ACETAMINOPHEN 1 tab PO TID 12/11/14 02/12/21 [Percocet 10-325 mg] Albuterol Sulfate [Ventolin HFA] 2 puff INHALATION RT-Q4H PRN 12/19/20 02/12/21 Dicyclomine [Bentyl] 20 mg PO DAILY 12/19/20 02/12/21 Omeprazole [PriLOSEC] 20 mg PO DAILY 12/19/20 02/12/21 amLODIPine [Norvasc] 10 mg PO DAILY 12/19/20 02/12/21 buPROPion XL [Wellbutrin XL] 150 mg PO DAILY 12/19/20 02/12/21 busPIRone HCl [Buspar] 10 mg PO DAILY 12/19/20 02/12/21 predniSONE 50 mg PO DAILY 12/19/20 02/12/21 Previous Rx's Medication Instructions Recorded Ondansetron Odt [Zofran Odt] 4 mg PO Q8HR PRN #10 tab 02/12/21 Allergies Allergy/AdvReac Type Severity Reaction Status Date / Time infliximab [From Remicade] Allergy Anaphylaxis Verified 02/12/21 18:24 lisinopril Allergy Anaphylaxis Verified 02/12/21 18:24 lactose AdvReac Nausea & Verified 02/12/21 18:24 Vomiting & Diarrhea NSAIDS (Non-Steroidal AdvReac Unknown Verified 02/12/21 18:24 Anti-Inflamma Review of Systems ROS Statement: Those systems with pertinent positive or pertinent negative responses have been documented in the HPI. ROS Other: All systems not noted in ROS Statement are negative. Past Medical History Past Medical History: GERD/Reflux, Hypertension, Osteoarthritis (OA), Rheumatoid Arthritis (RA) Additional Past Medical History / Comment(s): herniated discs, carpal tunnel, Crohns WITH OSTOMY PLACEMENT DECEMBER 15 2012 History of Any Multi-Drug Resistant Organisms: None Reported, C-DIFF MDRO Source:: 2018 Past Surgical History: Bowel Resection Additional Past Surgical History / Comment(s): OSTOMY PLACEMENT DECEMBER 15 2012 Past Anesthesia/Blood Transfusion Reactions: No Reported Reaction Additional Past Anesthesia/Blood Transfusion Reaction / Comment(s): DELIRIUM Past Psychological History: Depression Smoking Status: Former smoker Past Alcohol Use History: None Reported Past Drug Use History: Marijuana - Past Family History Mother Family Medical History: Hypertension Father Family Medical History: CVA/TIA, Hypertension General Exam - General Exam Comments Initial Comments: GENERAL: Patient is well-developed and well-nourished. Patient is nontoxic and in no acute distress. HEAD: Atraumatic, normocephalic. EYES: Pupils equal round and reactive to light, extraocular movements intact, sclera anicteric, conjunctiva are normal. Eyelids were unremarkable. ENT: TMs normal, nares patent, oropharynx clear without exudates. Moist mucous membranes. NECK: Normal range of motion, supple without lymphadenopathy or JVD. LUNGS: Unlabored respirations. Breath sounds clear to auscultation bilaterally and equal. No wheezes rales or rhonchi. HEART: Regular rate and rhythm without murmurs, rubs or gallops. ABDOMEN: Soft, some mild tenderness left side of the abdomen but no severe pain, ileostomy looks well, no signs of infection around. normoactive bowel sounds. No guarding, no rebound. No masses appreciated. : Deferred MUSCULOSKELETAL: Normal extremities with adequate strength and normal range of motion, no pitting or edema. No clubbing or cyanosis. NEUROLOGICAL: Patient is alert and oriented x 3. Motor and sensory are also intact. Cranial nerves II through XII grossly intact. Symmetrical smile. Normal speech, normal gait. PSYCH: Normal mood, normal affect. SKIN: Warm, Dry, normal turgor, no rashes or lesions noted. Limitations: no limitations Course Vital Signs 02/12/21 02/12/21 17:14 19:39 Temperature 98 F Pulse Rate 119 H 75 Respiratory 18 16 Rate Blood Pressure 144/87 118/81 O2 Sat by Pulse 98 97 Oximetry Medical Decision Making - Medical Decision Making Patient is a 40-year-old male with history of Crohn's, presenting for intermittent left-sided abdominal pain over the past 2 weeks. He has was seen and evaluated here 10 days ago, had normal CT and labs. He has not fallen up with his GI doctor. He was noncompliant with medications at that time, he states he has been taking them over the past week and does not feel any better. He has been nauseous. His vital signs are stable, afebrile. Labs show a normal white count, lactic acid, elevated at 2.8, most likely dehydration, no signs of an active infection, lipase is also slightly elevated at 332. KUB shows no acute process. Patient was given a liter and half of fluids, Zofran and pain control. He reports major improvement in his symptoms, his pain is very minimal at this time. I recommended continuing to increase his fluids, liquid diet for one to 2 days. He will follow-up with his GI doctor within a few days. He is stable for discharge and he is in agreement with this plan of care. Return para meters were discussed with the patient and he verbalized understanding. Case discussed with Dr. Carreno. - Lab Data Result diagrams: 02/12/21 18:16 02/12/21 18:16 Lab Results 02/12/21 02/12/21 02/12/21 Range/Units 18:16 18:16 18:16 WBC 10.4 (3.8-10.6) k/uL RBC 4.08 L (4.30-5.90) m/uL Hgb 13.4 (13.0-17.5) gm/dL Hct 38.8 L (39.0-53.0) % MCV 95.2 (80.0-100.0) fL MCH 32.8 (25.0-35.0) pg MCHC 34.4 (31.0-37.0) g/dL RDW 12.5 (11.5-15.5) % Plt Count 268 (150-450) k/uL MPV 6.6 Neutrophils % 94 % Lymphocytes % 3 % Monocytes % 2 % Eosinophils % 1 % Basophils % 0 % Neutrophils # 9.7 H (1.3-7.7) k/uL Lymphocytes # 0.3 L (1.0-4.8) k/uL Monocytes # 0.2 (0-1.0) k/uL Eosinophils # 0.1 (0-0.7) k/uL Basophils # 0.0 (0-0.2) k/uL Sodium 137 (137-145) mmol/L Potassium 4.2 (3.5-5.1) mmol/L Chloride 103 (98-107) mmol/L Carbon Dioxide 24 (22-30) mmol/L Anion Gap 10 mmol/L BUN 21 H (9-20) mg/dL Creatinine 1.17 (0.66-1.25) mg/dL Est GFR (CKD-EPI)AfAm 89 (>60 ml/min/1.73 sqM) Est GFR (CKD-EPI)NonAf 77 (>60 ml/min/1.73 sqM) Glucose 174 H (74-99) mg/dL Plasma Lactic Acid Jonathan 2.8 H* (0.7-2.0) mmol/L Calcium 10.1 (8.4-10.2) mg/dL Total Bilirubin 0.1 L (0.2-1.3) mg/dL AST 24 (17-59) U/L ALT 17 (4-49) U/L Alkaline Phosphatase 44 (38-126) U/L Total Protein 6.6 (6.3-8.2) g/dL Albumin 4.3 (3.5-5.0) g/dL Lipase 332 H (23-300) U/L Disposition Clinical Impression: Nausea & vomiting, Dehydration, Crohn's disease Disposition: HOME SELF-CARE Condition: Stable Instructions (If sedation given, give patient instructions): Dehydration (ED) Additional Instructions: Please return to the Emergency Department if symptoms worsen or any other concerns. May take Zofran for any additional nausea. Please follow up with GI as discussed. Prescriptions: Ondansetron Odt [Zofran Odt] 4 mg PO Q8HR PRN #10 tab PRN Reason: Nausea Is patient prescribed a controlled substance at d/c from ED?: No Referrals: Emile Rodríguez MD [Primary Care Provider] - 1-2 days Rene Ray MD [STAFF PHYSICIAN] - 1-2 days Time of Disposition: 20:27
[2021-02-12 18:36] LABS: Basophils % (A) 0 %; Eosinophils # (A) 0.1 k/uL (0-0.7); Eosinophils % (A) 1 %; HCT 38.8 % (39.0-53.0); HGB 13.4 gm/dL (13.0-17.5); Lymphocytes # (A) 0.3 k/uL (1.0-4.8); Lymphocytes % (A) 3 %; MCH 32.8 pg (25.0-35.0); MCHC 34.4 g/dL (31.0-37.0); MCV 95.2 fL (80.0-100.0); Mean Platelet Volume 6.6; Monocytes # (A) 0.2 k/uL (0-1.0); Monocytes % (A) 2 %; Neutrophils # (A) 9.7 k/uL (1.3-7.7); Neutrophils % (A) 94 %; Platelet Count 268 k/uL (150-450); RBC 4.08 m/uL (4.30-5.90); RDW 12.5 % (11.5-15.5); WBC 10.4 k/uL (3.8-10.6)
[2021-02-12 18:45] LABS: Albumin 4.3 g/dL (3.5-5.0); Calcium 10.1 mg/dL (8.4-10.2); Total Bilirubin 0.1 mg/dL (0.2-1.3); Total Protein 6.6 g/dL (6.3-8.2)
[2021-02-12 18:53] LABS: Potassium 4.2 mmol/L (3.5-5.1)
[2021-02-12] MEDS ORDERED: SODIUM CHLORIDE 0.9% 500 ML 500 ML IV STA (19:14)
[2021-02-12] MEDS ORDERED: MORPHINE SULFATE 4 MG/ML SYRINGE IVP STA (19:14)
--- NOTE | 2021-02-12 19:15 | XR ---
EXAM: Abdomen radiograph. HISTORY: Pain. TECHNIQUE: Upright AP view. COMPARISON: 12/19/2020. FINDINGS: There is paucity of bowel gas with a nonobstructive pattern. No pneumoperitoneum. There are no pathol ogic calcifications. No acute osseous abnormality seen. IMPRESSION: No acute process seen.
[2021-02-12 19:40] VITALS: BP 118/81; PULSE 75; RESP 16
== END 2021-02-12 20:50 | disposition home or self-care (01) ==
LOC: EC 17:13
DX: K50.90 Crohn's disease, unspecified, without complications (principal); E86.0 Dehydration; K21.9 Gastro-esophageal reflux disease without esophagitis; I10 Essential (primary) hypertension; M06.9 Rheumatoid arthritis, unspecified; M19.90 Unspecified osteoarthritis, unspecified site; Z87.891 Personal history of nicotine dependence; Z79.52 Long term (current) use of systemic steroids; Z79.899 Other long term (current) drug therapy; Z82.49 Family history of ischemic heart disease and other diseases of the circulatory system; Z88.6 Allergy status to analgesic agent; Z88.8 Allergy status to other drugs, medicaments and biological substances
CPT/HCPCS: 99284; 96374; 96375 ×2; 96361; 80053; 83605; 83690; 85025; 74018; J2270; J2405; J1885

== ENCOUNTER 2021-03-04 14:17 | Emergency (ER) | payer MEDICARE, OTHER ==
[2021-03-04 14:21] VITALS: RESP 16; TEMP 98.1
[2021-03-04] MEDS ORDERED: ONDANSETRON 4 MG/2 ML VIAL IVP STA (14:35)
[2021-03-04] MEDS ORDERED: SODIUM CHLORIDE 0.9% 1,000 ML IV STA (14:35)
[2021-03-04] MEDS ORDERED: MORPHINE SULFATE 4 MG/ML SYRINGE IV STA (14:35)
[2021-03-04 14:55] LABS: Basophils # (A) 0.1 k/uL (0-0.2); Basophils % (A) 1 %; Eosinophils # (A) 0.1 k/uL (0-0.7); Eosinophils % (A) 1 %; HCT 42.2 % (39.0-53.0); HGB 14.4 gm/dL (13.0-17.5); Lymphocytes # (A) 0.5 k/uL (1.0-4.8); Lymphocytes % (A) 4 %; MCH 32.2 pg (25.0-35.0); MCV 94.6 fL (80.0-100.0); Mean Platelet Volume 6.7; Monocytes # (A) 0.2 k/uL (0-1.0); Monocytes % (A) 2 %; Neutrophils # (A) 11.2 k/uL (1.3-7.7); Neutrophils % (A) 92 %; Platelet Count 250 k/uL (150-450); RBC 4.47 m/uL (4.30-5.90); RDW 13.2 % (11.5-15.5); WBC 12.1 k/uL (3.8-10.6)
[2021-03-04 15:09] LABS: ALT 17 U/L (4-49); AST 23 U/L (17-59); African American GFR (CKD) >90 (>60 ml/min/1.73 sqM); Albumin 4.2 g/dL (3.5-5.0); Alkaline Phosphatase 48 U/L (38-126); Amylase 133 U/L (30-110); Anion Gap 7 mmol/L; Blood Urea Nitrogen 16 mg/dL (9-20); Calcium 9.6 mg/dL (8.4-10.2); Carbon Dioxide 25 mmol/L (22-30); Chloride 107 mmol/L (98-107); Glucose 134 mg/dL (74-99); Lipase 217 U/L (23-300); Non-African American GFR(CKD) >90 (>60 ml/min/1.73 sqM); Sodium 139 mmol/L (137-145); Total Bilirubin 0.2 mg/dL (0.2-1.3); Total Protein 6.6 g/dL (6.3-8.2)
[2021-03-04 15:17] LABS: Appearance,Urine Clear (Clear); Bilirubin,Urine Negative (Negative); Blood,Urine Negative (Negative); Color,Urine Yellow; Glucose,Urine (UA) Negative (Negative); Ketones,Urine Negative (Negative); Leukocyte Esterase,Urine Trace (Negative); Mucus,Urine Rare /hpf; Nitrite,Urine Negative (Negative); PH, Urine 5.5 (5.0-8.0); Protein,Urine Trace (Negative); RBC,Urine <1 /hpf (0-5); Specific Gravity,Urine 1.016 (1.001-1.035); Urobilinogen,Urine <2.0 mg/dL (<2.0); WBC,Urine <1 /hpf (0-5)
--- NOTE | 2021-03-04 15:43 | CT ---
EXAMINATION TYPE: CT abdomen pelvis w con DATE OF EXAM: 03/04/2021 COMPARISON: 02/02/2021 HISTORY: 40-year-old male LUQ pain TECHNIQUE: Contiguous axial scanning of the abdomen and pelvis following administration of 100 ml Iso david 300 IV contrast. Delayed images through the kidneys and coronal/sagittal reconstructions perform ed. CT DLP: 551.6 mGycm Automated exposure control for dose reduction was used. FINDINGS: Heart normal size without pericardial effusion. Lung bases clear without pleural effusion. Liver borderline enlarged. 17.9 cm. No focal liver lesion or biliary ductal dilatation. Portal venous system is patent. Gallbladder, adrenal glands, spleen, and pancreas within normal limits. The main pancreatic duct is n ot as prominent as seen on 02/12/2021. Cortical hypodensity on either side measuring 1.1 cm on the right, 1.1 and 0.7 cm on the left suggest ing cortical cysts. Symmetric uptake and excretion of contrast from both kidneys. No dilated small bowel, free fluid, or free air. There are some prominent fluid-filled small bowel lo ops in the right lower quadrant and right side of the pelvis. Right mid abdominal ileostomy is noted. Subtotal colectomy with Ross's pouch. Mild circumferential bladder wall thickening. No abnormal fluid collection in the pelvis or pelvic ly mphadenopathy. Bones: Some subtle degenerative changes at the SI joints. Disc osteophyte complex at L1-L2 causes mil d to moderate narrowing of the spinal canal. IMPRESSION: 1. STATUS POST SUBTOTAL COLECTOMY WITH A ROSS'S POUCH. RIGHT MID ABDOMINAL ILEOSTOMY. 2. PROMINENT FLUID-FILLED SMALL BOWEL LOOPS IN THE RIGHT LOWER QUADRANT AND RIGHT SIDE OF THE PELVIS COULD REPRESENT A NONSPECIFIC ENTERITIS. 3. BORDERLINE HEPATOMEGALY AT 17.9 CM. 4. MILD CIRCUMFERENTIAL BLADDER WALL THICKENING. CORRELATE TO EXCLUDE CYSTITIS.
[2021-03-04] MEDS ORDERED: HYDROmorphone 1 MG/ML 1 ML SYRINGE IVP STA ×2 (15:45→15:46)
--- NOTE | 2021-03-04 16:37 | ED ---
Abdominal Pain HPI - General Chief Complaint: Abdominal Pain Stated Complaint: ABD pain,Weakness Time Seen by Provider: 03/04/21 14:24 Source: patient Mode of arrival: wheelchair Limitations: no limitations - History of Present Illness Initial Comments: Patient complains of abdominal pain. Pain is on the left side. It doesn't radiate anywhere. Nothing makes it better or worse. He has no chest pain. He has no shortness of breath. He has no full-thickness. He has taken medicine for this, which is not helping. I - Related Data Home Medications Medication Instructions Recorded Confirmed oxyCODONE HCL/ACETAMINOPHEN 1 tab PO TID 12/11/14 02/12/21 [Percocet 10-325 mg] Albuterol Sulfate [Ventolin HFA] 2 puff INHALATION RT-Q4H PRN 12/19/20 02/12/21 Dicyclomine [Bentyl] 20 mg PO DAILY 12/19/20 02/12/21 Omeprazole [PriLOSEC] 20 mg PO DAILY 12/19/20 02/12/21 amLODIPine [Norvasc] 10 mg PO DAILY 12/19/20 02/12/21 buPROPion XL [Wellbutrin XL] 150 mg PO DAILY 12/19/20 02/12/21 busPIRone HCl [Buspar] 10 mg PO DAILY 12/19/20 02/12/21 predniSONE 50 mg PO DAILY 12/19/20 02/12/21 Previous Rx's Medication Instructions Recorded Ondansetron Odt [Zofran Odt] 4 mg PO Q8HR PRN #10 tab 02/12/21 Allergies Allergy/AdvReac Type Severity Reaction Status Date / Time infliximab [From Remicade] Allergy Anaphylaxis Verified 03/04/21 14:20 lisinopril Allergy Anaphylaxis Verified 03/04/21 14:20 lactose AdvReac Nausea & Verified 03/04/21 14:20 Vomiting & Diarrhea NSAIDS (Non-Steroidal AdvReac Unknown Verified 03/04/21 14:20 Anti-Inflamma Review of Systems ROS Statement: Those systems with pertinent positive or pertinent negative responses have been documented in the HPI. ROS Other: All systems not noted in ROS Statement are negative. Past Medical History Past Medical History: GERD/Reflux, Hypertension, Osteoarthritis (OA), Rheumatoid Arthritis (RA) Additional Past Medical History / Comment(s): herniated discs, carpal tunnel, Crohns WITH OSTOMY PLACEMENT DECEMBER 15 2012 History of Any Multi-Drug Resistant Organisms: None Reported, C-DIFF MDRO Source:: 2018 Past Surgical History: Bowel Resection Additional Past Surgical History / Comment(s): OSTOMY PLACEMENT DECEMBER 15 2012 Past Anesthesia/Blood Transfusion Reactions: No Reported Reaction Additional Past Anesthesia/Blood Transfusion Reaction / Comment(s): DELIRIUM Past Psychological History: Depression Smoking Status: Former smoker Past Alcohol Use History: None Reported Past Drug Use History: Marijuana - Past Family History Mother Family Medical History: Hypertension Father Family Medical History: CVA/TIA, Hypertension General Exam Limitations: no limitations General appearance: alert, in no apparent distress Head exam: Present: atraumatic, normocephalic, normal inspection Eye exam: Present: normal appearance, PERRL, EOMI. Absent: scleral icterus, co njunctival injection, periorbital swelling ENT exam: Present: normal exam, mucous membranes moist Neck exam: Present: normal inspection. Absent: tenderness, meningismus, lymphadenopathy Respiratory exam: Present: normal lung sounds bilaterally. Absent: respiratory distress, wheezes, rales, rhonchi, stridor Cardiovascular Exam: Present: regular rate, normal rhythm, normal heart sounds. Absent: systolic murmur, diastolic murmur, rubs, gallop, clicks GI/Abdominal exam: Present: soft, tenderness, normal bowel sounds. Absent: distended, guarding, rebound, rigid Extremities exam: Present: normal inspection, full ROM, normal capillary refill. Absent: tenderness, pedal edema, joint swelling, calf tenderness Back exam: Present: normal inspection Neurological exam: Present: alert, oriented X3, CN II-XII intact Psychiatric exam: Present: normal affect, normal mood Skin exam: Present: warm, dry, intact, normal color. Absent: rash Course Vital Signs 03/04/21 14:19 Temperature 98.1 F Pulse Rate 112 H Respiratory 16 Rate Blood Pressure 150/109 O2 Sat by Pulse 98 Oximetry Medical Decision Making - Medical Decision Making Patient presents for abdominal pain. CT does not show any acute emergency. He is feeling better. He is stable for discharge. - Lab Data Result diagrams: 03/04/21 14:47 03/04/21 14:47 Lab Results 03/04/21 03/04/21 03/04/21 Range/Units 14:47 14:47 14:47 WBC 12.1 H (3.8-10.6) k/uL RBC 4.47 (4.30-5.90) m/uL Hgb 14.4 (13.0-17.5) gm/dL Hct 42.2 (39.0-53.0) % MCV 94.6 (80.0-100.0) fL MCH 32.2 (25.0-35.0) pg MCHC 34.0 (31.0-37.0) g/dL RDW 13.2 (11.5-15.5) % Plt Count 250 (150-450) k/uL MPV 6.7 Neutrophils % 92 % Lymphocytes % 4 % Monocytes % 2 % Eosinophils % 1 % Basophils % 1 % Neutrophils # 11.2 H (1.3-7.7) k/uL Lymphocytes # 0.5 L (1.0-4.8) k/uL Monocytes # 0.2 (0-1.0) k/uL Eosinophils # 0.1 (0-0.7) k/uL Basophils # 0.1 (0-0.2) k/uL Sodium 139 (137-145) mmol/L Potassium 4.0 (3.5-5.1) mmol/L Chloride 107 (98-107) mmol/L Carbon Dioxide 25 (22-30) mmol/L Anion Gap 7 mmol/L BUN 16 (9-20) mg/dL Creatinine 0.93 (0.66-1.25) mg/dL Est GFR (CKD-EPI)AfAm >90 (>60 ml/min/1.73 sqM) Est GFR (CKD-EPI)NonAf >90 (>60 ml/min/1.73 sqM) Glucose 134 H (74-99) mg/dL Calcium 9.6 (8.4-10.2) mg/dL Total Bilirubin 0.2 (0.2-1.3) mg/dL AST 23 (17-59) U/L ALT 17 (4-49) U/L Alkaline Phosphatase 48 (38-126) U/L Total Protein 6.6 (6.3-8.2) g/dL Albumin 4.2 (3.5-5.0) g/dL Amylase 133 H (30-110) U/L Lipase 217 (23-300) U/L Urine Color Yellow Urine Appearance Clear (Clear) Urine pH 5.5 (5.0-8.0) Ur Specific [place] 1.016 (1.001-1.035) Urine Protein Trace H (Negative) Urine Glucose (UA) Negative (Negative) Urine Ketones Negative (Negative) Urine Blood Negative (Negative) Urine Nitrite Negative (Negative) Urine Bilirubin Negative (Negative) Urine Urobilinogen <2.0 (<2.0) mg/dL Ur Leukocyte Esterase Trace H (Negative) Urine RBC <1 (0-5) /hpf Urine WBC <1 (0-5) /hpf Urine Mucus Rare H (None) /hpf Disposition Clinical Impression: Abdominal pain Disposition: HOME SELF-CARE Condition: Good Instructions (If sedation given, give patient instructions): Abdominal Pain (ED) Is patient prescribed a controlled substance at d/c from ED?: No Referrals: Emile Rodríguez MD [Primary Care Provider] - 1-2 days
[2021-03-04] MEDS ORDERED: HYDROmorphone 0.5 MG/0.5 ML SYRINGE IVP STA (16:47)
[2021-03-04 16:53] VITALS: BP 142/90; PULSE 98
== END 2021-03-04 16:53 | disposition home or self-care (01) ==
LOC: EC 14:17
DX: R10.9 Unspecified abdominal pain (principal); I10 Essential (primary) hypertension; M19.90 Unspecified osteoarthritis, unspecified site; M06.9 Rheumatoid arthritis, unspecified; F32.9 Major depressive disorder, single episode, unspecified; F12.90 Cannabis use, unspecified, uncomplicated; K21.9 Gastro-esophageal reflux disease without esophagitis; Z87.891 Personal history of nicotine dependence
CPT/HCPCS: 36415; 80053; 82150; 83690; 85025; 81001; 74177; 99284; 96374; 96375 ×2; 96376; 96361; J2270; J2405; J1170 ×2; Q9967

== ENCOUNTER 2021-04-09 13:18 | Emergency (ER) | payer MEDICARE, OTHER ==
[2021-04-09] MEDS ORDERED: PANTOPRAZOLE 40 MG/10 ML VIAL IVP STA (13:30)
[2021-04-09] MEDS ORDERED: SODIUM CHLORIDE 0.9% 500 ML 500 ML IV STA (13:30)
[2021-04-09] MEDS ORDERED: SODIUM CHLORIDE 0.9% 1,000 ML IV STA (13:30)
[2021-04-09] MEDS ORDERED: HYDROmorphone 1 MG/ML 1 ML SYRINGE IVP STA ×2 (13:31→15:17)
--- NOTE | 2021-04-09 13:36 | ED ---
Abdominal Pain HPI - General Chief Complaint: Abdominal Pain Stated Complaint: abd pain Time Seen by Provider: 04/09/21 13:22 Source: patient, EMS, RN notes reviewed Mode of arrival: EMS Limitations: no limitations - History of Present Illness Initial Comments: 40-year-old male presents emergency department via EMS with chief complaint of abdominal pain. Patient states started some left-sided radiates up. Patient states that the pain seems he worsening. Does admit to not vomiting patient has colostomy in the right which has had normal loose output. patient has known crohn's disease in which he does see gi. denies fevers chills no chest pain or shortness of breath. - Related Data Home Medications Medication Instructions Recorded Confirmed oxyCODONE HCL/ACETAMINOPHEN 1 tab PO TID PRN 12/11/14 04/09/21 [Percocet 10-325 mg] Albuterol Sulfate [Ventolin HFA] 2 puff INHALATION RT-Q4H PRN 12/19/20 04/09/21 Omeprazole [PriLOSEC] 20 mg PO DAILY 12/19/20 04/09/21 amLODIPine [Norvasc] 10 mg PO DAILY 12/19/20 04/09/21 buPROPion XL [Wellbutrin XL] 150 mg PO DAILY 12/19/20 04/09/21 busPIRone HCl [Buspar] 10 mg PO BID 12/19/20 04/09/21 predniSONE 50 mg PO DAILY 12/19/20 04/09/21 Hydrochlorothiazide 12.5 mg PO DAILY 04/09/21 04/09/21 [hydroCHLOROthiazide] Previous Rx's Medication Instructions Recorded Ondansetron Odt [Zofran Odt] 4 mg PO Q8HR PRN #10 tab 04/09/21 Allergies Allergy/AdvReac Type Severity Reaction Status Date / Time infliximab [From Remicade] Allergy Anaphylaxis Verified 04/11/21 17:42 lisinopril Allergy Anaphylaxis Verified 04/11/21 17:42 lactose AdvReac Nausea & Verified 04/11/21 17:42 Vomiting & Diarrhea NSAIDS (Non-Steroidal AdvReac Unknown Verified 04/11/21 17:42 Anti-Inflamma Review of Systems ROS Statement: Those systems with pertinent positive or pertinent negative responses have been documented in the HPI. ROS Other: All systems not noted in ROS Statement are negative. Past Medical History Past Medical History: GERD/Reflux, Hypertension, Osteoarthritis (OA), Rheumatoid Arthritis (RA) Additional Past Medical History / Comment(s): herniated discs, carpal tunnel, Crohns WITH OSTOMY PLACEMENT DECEMBER 15 2012 History of Any Multi-Drug Resistant Organisms: None Reported, C-DIFF MDRO Source:: 2018 Past Surgical History: Bowel Resection Additional Past Surgical History / Comment(s): OSTOMY PLACEMENT DECEMBER 15 2012 Past Anesthesia/Blood Transfusion Reactions: No Reported Reaction Additional Past Anesthesia/Blood Transfusion Reaction / Comment(s): DELIRIUM Past Psychological History: Depression Smoking Status: Former smoker Past Alcohol Use History: None Reported Past Drug Use History: Marijuana - Past Family History Mother Family Medical History: Hypertension Father Family Medical History: CVA/TIA, Hypertension General Exam Limitations: no limitations Head exam: Present: atraumatic, normocephalic, normal inspection Eye exam: Present: normal appearance, PERRL, EOMI. Absent: scleral icterus, conjunctival injection, periorbital swelling Respiratory exam: Present: normal lung sounds bilaterally. Absent: respiratory distress, wheezes, rales, rhonchi, stridor Cardiovascular Exam: Present: regular rate, normal rhythm, normal heart sounds. Absent: systolic murmur, diastolic murmur, rubs, gallop, clicks GI/Abdominal exam: Present: soft, tenderness, normal bowel sounds, other (Ostomy noted ). Absent: distended, guarding, rebound, rigid Neurological exam: Present: alert Skin exam: Present: warm, dry, intact, normal color. Absent: rash Course Vital Signs 04/09/21 04/09/21 04/09/21 13:19 15:11 15:56 Temperature 98.7 F 98.0 F Pulse Rate 89 91 Respiratory 18 16 Rate Blood Pressure 137/96 135/88 O2 Sat by Pulse 96 97 Oximetry Medical Decision Making - Medical Decision Making Labs show mild leukocytosis most likely related to steroids, patient has lipases 680, patient was given fluid bolus, pain medication. Patient discharged in stable condition return parameters were discussed. - Lab Data Result diagrams: 04/09/21 13:37 04/09/21 13:37 Lab Results 04/09/21 04/09/21 04/09/21 Range/Units 13:37 13:37 13:37 WBC 19.2 H (3.8-10.6) k/uL RBC 4.80 (4.30-5.90) m/uL Hgb 15.4 (13.0-17.5) gm/dL Hct 43.4 (39.0-53.0) % MCV 90.6 (80.0-100.0) fL MCH 32.2 (25.0-35.0) pg MCHC 35.6 (31.0-37.0) g/dL RDW 13.3 (11.5-15.5) % Plt Count 243 (150-450) k/uL MPV 6.5 Neutrophils % 95 % Lymphocytes % 2 % Monocytes % 2 % Eosinophils % 0 % Basophils % 0 % Neutrophils # 18.3 H (1.3-7.7) k/uL Lymphocytes # 0.4 L (1.0-4.8) k/uL Monocytes # 0.5 (0-1.0) k/uL Eosinophils # 0.1 (0-0.7) k/uL Basophils # 0.0 (0-0.2) k/uL Sodium 133 L (137-145) mmol/L Potassium 3.2 L (3.5-5.1) mmol/L Chloride 97 L (98-107) mmol/L Carbon Dioxide 23 (22-30) mmol/L Anion Gap 13 mmol/L BUN 38 H (9-20) mg/dL Creatinine 1.23 (0.66-1.25) mg/dL Est GFR (CKD-EPI)AfAm 84 (>60 ml/min/1.73 sqM) Est GFR (CKD-EPI)NonAf 73 (>60 ml/min/1.73 sqM) Glucose 150 H (74-99) mg/dL Calcium 9.6 (8.4-10.2) mg/dL Magnesium 1.8 (1.6-2.3) mg/dL Total Bilirubin 0.3 (0.2-1.3) mg/dL AST 32 (17-59) U/L ALT 24 (4-49) U/L Alkaline Phosphatase 56 (38-126) U/L Total Protein 7.0 (6.3-8.2) g/dL Albumin 4.4 (3.5-5.0) g/dL Lipase 687 H (23-300) U/L Urine Color Light Yellow Urine Appearance Clear (Clear) Urine pH 6.0 (5.0-8.0) Ur Specific [place] 1.006 (1.001-1.035) Urine Protein Trace H (Negative) Urine Glucose (UA) Negative (Negative) Urine Ketones Negative (Negative) Urine Blood Negative (Negative) Urine Nitrite Negative (Negative) Urine Bilirubin Negative (Negative) Urine Urobilinogen <2.0 (<2.0) mg/dL Ur Leukocyte Esterase Negative (Negative) Disposition Clinical Impression: Abdominal pain, Inflammatory bowel disease, Pancreatitis Disposition: HOME SELF-CARE Condition: Stable Instructions (If sedation given, give patient instructions): Abdominal Pain (ED) Additional Instructions: Clear liquid diet and advance as tolerated.Please return to the Emergency Department if symptoms worsen or any other concerns. Prescriptions: Ondansetron Odt [Zofran Odt] 4 mg PO Q8HR PRN #10 tab PRN Reason: Nausea Is patient prescribed a controlled substance at d/c from ED?: No Referrals: Emile Rodríguez MD [Primary Care Provider] - 1-2 days Time of Disposition: 15:19
[2021-04-09 14:10] LABS: Albumin 4.4 g/dL (3.5-5.0); Calcium 9.6 mg/dL (8.4-10.2); Magnesium 1.8 mg/dL (1.6-2.3); Potassium 3.2 mmol/L (3.5-5.1); Total Bilirubin 0.3 mg/dL (0.2-1.3)
[2021-04-09 14:15] LABS: Basophils % (A) 0 %; Eosinophils # (A) 0.1 k/uL (0-0.7); Eosinophils % (A) 0 %; HCT 43.4 % (39.0-53.0); HGB 15.4 gm/dL (13.0-17.5); Lymphocytes # (A) 0.4 k/uL (1.0-4.8); Lymphocytes % (A) 2 %; MCH 32.2 pg (25.0-35.0); MCHC 35.6 g/dL (31.0-37.0); MCV 90.6 fL (80.0-100.0); Mean Platelet Volume 6.5; Monocytes # (A) 0.5 k/uL (0-1.0); Monocytes % (A) 2 %; Neutrophils # (A) 18.3 k/uL (1.3-7.7); Neutrophils % (A) 95 %; Platelet Count 243 k/uL (150-450); RDW 13.3 % (11.5-15.5); WBC 19.2 k/uL (3.8-10.6)
[2021-04-09 15:15] VITALS: BP 135/88; PULSE 91; RESP 16
[2021-04-09 15:35] LABS: Appearance,Urine Clear (Clear); Bilirubin,Urine Negative (Negative); Blood,Urine Negative (Negative); Color,Urine Light Yellow; Glucose,Urine (UA) Negative (Negative); Ketones,Urine Negative (Negative); Leukocyte Esterase,Urine Negative (Negative); Nitrite,Urine Negative (Negative); Protein,Urine Trace (Negative); Specific Gravity,Urine 1.006 (1.001-1.035); Urobilinogen,Urine <2.0 mg/dL (<2.0)
[2021-04-09 16:09] VITALS: TEMP 98
== END 2021-04-09 16:00 | disposition home or self-care (01) ==
LOC: EC 13:18
DX: K85.90 Acute pancreatitis without necrosis or infection, unspecified (principal); K63.89 Other specified diseases of intestine; I10 Essential (primary) hypertension; K21.9 Gastro-esophageal reflux disease without esophagitis; M06.9 Rheumatoid arthritis, unspecified; F32.9 Major depressive disorder, single episode, unspecified; F12.90 Cannabis use, unspecified, uncomplicated; Z87.891 Personal history of nicotine dependence; Z79.52 Long term (current) use of systemic steroids; Z79.899 Other long term (current) drug therapy; Z88.6 Allergy status to analgesic agent; Z88.8 Allergy status to other drugs, medicaments and biological substances
CPT/HCPCS: 36415; 80053; 83690; 83735; 85025; 81003; 99284; 96374; 96375 ×2; 96376; 96361; J1170; C9113; J1790

== ENCOUNTER 2021-04-11 17:23 | Emergency (ER) | payer MEDICARE, OTHER ==
[2021-04-11] MEDS ORDERED: SODIUM CHLORIDE 0.9% 1,000 ML IV STA (17:56)
[2021-04-11 18:24] LABS: Basophils % (A) 0 %; Eosinophils # (A) 0.1 k/uL (0-0.7); Eosinophils % (A) 1 %; HCT 41.7 % (39.0-53.0); HGB 14.9 gm/dL (13.0-17.5); Lymphocytes # (A) 0.3 k/uL (1.0-4.8); Lymphocytes % (A) 3 %; MCH 32.5 pg (25.0-35.0); MCHC 35.7 g/dL (31.0-37.0); MCV 90.9 fL (80.0-100.0); Mean Platelet Volume 6.4; Monocytes # (A) 0.4 k/uL (0-1.0); Monocytes % (A) 3 %; Neutrophils % (A) 93 %; Platelet Count 243 k/uL (150-450); RBC 4.59 m/uL (4.30-5.90); RDW 13.4 % (11.5-15.5); WBC 10.8 k/uL (3.8-10.6)
--- NOTE | 2021-04-11 18:30 | ED ---
General Adult HPI - General Chief complaint: Abdominal Pain Stated complaint: Abd Pain Time Seen by Provider: 04/11/21 17:56 Source: patient Mode of arrival: ambulatory Limitations: no limitations - History of Present Illness Initial comments: Dictation was produced using [employer] dictation software. please excuse any grammatical, word or spelling errors. Chief Complaint: 40-year-old male past medical history of Crohn's disease, hyper tension, chronic abdominal pain, ileostomy presents to the emergency department for abdominal pain History of Present Illness: She is a 40-year-old male who was seen here in emergency department 2 days ago for abdominal pain. Patient's history of Crohn's disease and ileostomy. Patient states that he was given an appointment to follow-up with his primary care doctor however it's not going to be for another 11 days. She is here for pain relief. States that he is abdominal pain is left side radiates to the back typical of his usual chronic pain. Denies any fever. No nausea vomiting. Output through the ostomy. Patient requesting pain relief. States that he has Percocets at home that aren't providing him any relief. The ROS documented in this emergency department record has been reviewed and confirmed by me. Those systems with pertinent positive or negative responses have been documented in the HPI. All other systems are other negative and/or noncontributory. PHYSICAL EXAM: General Impression: Alert and oriented x3, not in acute distress HEENT: Normocephalic atraumatic, extra-ocular movements intact, pupils equal and reactive to light bilaterally, mucous membranes moist. Cardiovascular: Heart regular rate and rhythm Chest: Able to complete full sentences, no retractions, no tachypnea Abdomen: abdomen soft, non-tender, non-distended, no organomegaly, ostomy intact Musculoskeletal: Pulses present and equal in all extremities, no peripheral edema Motor: no focal deficits noted Neurological: CN II-XII grossly intact, no focal motor or sensory deficits noted Skin: Intact with no visualized rashes Psych: Normal affect and mood ED course: 40-year-old male presents with acute on chronic abdominal pain. Vital signs upon arrival shows heart rate of 122 rest of vital signs within acceptable limits. CBC obtained. WBCs 10.8 which is improved from 90.2 from 2 days ago. Metabolic panel is normal. Lipase is 508. Patient abdominal exam is normal. He is reevaluated at bedside at 6:50 PM found with stable medical condition. He is resting comfortably and scrolling on his cellular phone. He is not in any acute distress. His repeat abdominal exam is benign.. Patient given IV analgesia. He is discharged and told to follow-up with his primary care doctor or his pain specialist for outpatient management of chronic pain. EKG interpretation: Ventricular rate 84, normal sinus rhythm, MD interval 134, QRS 80, QTc 444. No MD prolongation, no QTC prolongation, no ST or T-wave changes noted. EKG compared to 06/27/2018 showing no changes. Overall, this EKG is unremarkable - Related Data Home Medications Medication Instructions Recorded Confirmed oxyCODONE HCL/ACETAMINOPHEN 1 tab PO TID PRN 12/11/14 04/09/21 [Percocet 10-325 mg] Albuterol Sulfate [Ventolin HFA] 2 puff INHALATION RT-Q4H PRN 12/19/20 04/09/21 Omeprazole [PriLOSEC] 20 mg PO DAILY 12/19/20 04/09/21 amLODIPine [Norvasc] 10 mg PO DAILY 12/19/20 04/09/21 buPROPion XL [Wellbutrin XL] 150 mg PO DAILY 12/19/20 04/09/21 busPIRone HCl [Buspar] 10 mg PO BID 12/19/20 04/09/21 predniSONE 50 mg PO DAILY 12/19/20 04/09/21 Hydrochlorothiazide 12.5 mg PO DAILY 04/09/21 04/09/21 [hydroCHLOROthiazide] Previous Rx's Medication Instructions Recorded Ondansetron Odt [Zofran Odt] 4 mg PO Q8HR PRN #10 tab 04/09/21 Allergies Allergy/AdvReac Type Severity Reaction Status Date / Time infliximab [From Remicade] Allergy Anaphylaxis Verified 04/11/21 17:42 lisinopril Allergy Anaphylaxis Verified 04/11/21 17:42 lactose AdvReac Nausea & Verified 04/11/21 17:42 Vomiting & Diarrhea NSAIDS (Non-Steroidal AdvReac Unknown Verified 04/11/21 17:42 Anti-Inflamma Review of Systems ROS Statement: Those systems with pertinent positive or pertinent negative responses have been documented in the HPI. ROS Other: All systems not noted in ROS Statement are negative. Past Medical History Past Medical History: GERD/Reflux, Hypertension, Osteoarthritis (OA), Rheumatoid Arthritis (RA) Additional Past Medical History / Comment(s): herniated discs, carpal tunnel, Crohns WITH OSTOMY PLACEMENT DECEMBER 15 2012, pancreatitis History of Any Multi-Drug Resistant Organisms: None Reported, C-DIFF MDRO Source:: 2018 Past Surgical History: Bowel Resection Additional Past Surgical History / Comment(s): OSTOMY PLACEMENT DECEMBER 15 2012 Past Anesthesia/Blood Transfusion Reactions: No Reported Reaction Additional Past Anesthesia/Blood Transfusion Reaction / Comment(s): DELIRIUM Past Psychological History: Depression Smoking Status: Former smoker Past Alcohol Use History: None Reported Past Drug Use History: Marijuana - Past Family History Mother Family Medical History: Hypertension Father Family Medical History: CVA/TIA, Hypertension General Exam Limitations: no limitations Course Vital Signs 04/11/21 04/11/21 17:39 18:24 Temperature 98.2 F Pulse Rate 122 H 81 Respiratory 18 20 Rate Blood Pressure 131/90 136/87 O2 Sat by Pulse 98 98 Oximetry Medical Decision Making - Lab Data Result diagrams: 04/11/21 18:12 04/11/21 18:12 Lab Results 04/11/21 04/11/21 Range/Units 18:12 18:12 WBC 10.8 H (3.8-10.6) k/uL RBC 4.59 (4.30-5.90) m/uL Hgb 14.9 (13.0-17.5) gm/dL Hct 41.7 (39.0-53.0) % MCV 90.9 (80.0-100.0) fL MCH 32.5 (25.0-35.0) pg MCHC 35.7 (31.0-37.0) g/dL RDW 13.4 (11.5-15.5) % Plt Count 243 (150-450) k/uL MPV 6.4 Neutrophils % 93 % Lymphocytes % 3 % Monocytes % 3 % Eosinophils % 1 % Basophils % 0 % Neutrophils # 10.0 H (1.3-7.7) k/uL Lymphocytes # 0.3 L (1.0-4.8) k/uL Monocytes # 0.4 (0-1.0) k/uL Eosinophils # 0.1 (0-0.7) k/uL Basophils # 0.0 (0-0.2) k/uL Sodium 136 L (137-145) mmol/L Potassium 3.5 (3.5-5.1) mmol/L Chloride 100 (98-107) mmol/L Carbon Dioxide 27 (22-30) mmol/L Anion Gap 9 mmol/L BUN 12 (9-20) mg/dL Creatinine 0.92 (0.66-1.25) mg/dL Est GFR (CKD-EPI)AfAm >90 (>60 ml/min/1.73 sqM) Est GFR (CKD-EPI)NonAf >90 (>60 ml/min/1.73 sqM) Glucose 143 H (74-99) mg/dL Calcium 10.0 (8.4-10.2) mg/dL Total Bilirubin 0.4 (0.2-1.3) mg/dL AST 28 (17-59) U/L ALT 21 (4-49) U/L Alkaline Phosphatase 49 (38-126) U/L Total Protein 7.2 (6.3-8.2) g/dL Albumin 4.7 (3.5-5.0) g/dL Lipase 508 H (23-300) U/L Disposition Clinical Impression: Abdominal pain Disposition: HOME SELF-CARE Condition: Good Instructions (If sedation given, give patient instructions): Abdominal Pain (ED) Is patient prescribed a controlled substance at d/c from ED?: No Referrals: Emile Rodríguez MD [Primary Care Provider] - 1-2 days
[2021-04-11 18:34] LABS: ALT 21 U/L (4-49); AST 28 U/L (17-59); African American GFR (CKD) >90 (>60 ml/min/1.73 sqM); Albumin 4.7 g/dL (3.5-5.0); Alkaline Phosphatase 49 U/L (38-126); Anion Gap 9 mmol/L; Blood Urea Nitrogen 12 mg/dL (9-20); Carbon Dioxide 27 mmol/L (22-30); Chloride 100 mmol/L (98-107); Glucose 143 mg/dL (74-99); Lipase 508 U/L (23-300); Non-African American GFR(CKD) >90 (>60 ml/min/1.73 sqM); Potassium 3.5 mmol/L (3.5-5.1); Sodium 136 mmol/L (137-145); Total Bilirubin 0.4 mg/dL (0.2-1.3); Total Protein 7.2 g/dL (6.3-8.2)
[2021-04-11] MEDS ORDERED: HYDROmorphone 1 MG/ML 1 ML SYRINGE IVP STA (18:37)
[2021-04-11 19:23] VITALS: BP 145/92; PULSE 85; RESP 18; TEMP 98.1
== END 2021-04-11 19:23 | disposition home or self-care (01) ==
LOC: EC 17:23
DX: R10.9 Unspecified abdominal pain (principal); G89.29 Other chronic pain; I10 Essential (primary) hypertension; K21.9 Gastro-esophageal reflux disease without esophagitis; K50.90 Crohn's disease, unspecified, without complications; M06.9 Rheumatoid arthritis, unspecified; F32.9 Major depressive disorder, single episode, unspecified; F12.90 Cannabis use, unspecified, uncomplicated; Z87.891 Personal history of nicotine dependence; Z79.52 Long term (current) use of systemic steroids; Z79.899 Other long term (current) drug therapy; Z88.6 Allergy status to analgesic agent; Z88.8 Allergy status to other drugs, medicaments and biological substances
CPT/HCPCS: 36415; 93005; 80053; 83690; 85025; 99284; 96374; 96361; J1170

== ENCOUNTER 2021-12-06 15:37 | Inpatient (IN) | payer MEDICARE, OTHER ==
[2021-12-06] MEDS ORDERED: SODIUM CHLORIDE 0.9% 500 ML 500 ML IV STA (16:07)
[2021-12-06 16:23] LABS: Basophils % (A) 0 %; Eosinophils % (A) 0 %; HCT 39.5 % (39.0-53.0); HGB 13.3 gm/dL (13.0-17.5); Lymphocytes # (A) 0.7 k/uL (1.0-4.8); Lymphocytes % (A) 5 %; MCH 32.5 pg (25.0-35.0); MCHC 33.6 g/dL (31.0-37.0); MCV 96.6 fL (80.0-100.0); Mean Platelet Volume 6.7; Monocytes # (A) 0.7 k/uL (0-1.0); Monocytes % (A) 6 %; Neutrophils # (A) 10.7 k/uL (1.3-7.7); Neutrophils % (A) 87 %; Platelet Count 272 k/uL (150-450); RBC 4.09 m/uL (4.30-5.90); RDW 14.2 % (11.5-15.5); WBC 12.3 k/uL (3.8-10.6)
--- NOTE | 2021-12-06 16:26 | XR ---
EXAMINATION TYPE: XR abdomen acute w cxr DATE OF EXAM: 12/06/2021 COMPARISON: 12/19/2020 HISTORY: Abdominal pain TECHNIQUE: 2 views FINDINGS: Bowel gas pattern is normal. There is no sign of intestinal obstruction or pneumoperitoneum . Fecal pattern is normal. Lung bases are clear. There are no calcifications over the kidneys. IMPRESSION: Nonacute abdomen. No change.
[2021-12-06] MEDS ORDERED: ONDANSETRON 4 MG/2 ML VIAL IVP STA (16:35)
[2021-12-06] MEDS ORDERED: HYDROmorphone 1 MG/ML 1 ML SYRINGE IVP STA (16:35)
[2021-12-06 16:36] LABS: Albumin 4.8 g/dL (3.5-5.0); Calcium 9.8 mg/dL (8.4-10.2); Potassium 3.5 mmol/L (3.5-5.1); Total Bilirubin 0.9 mg/dL (0.2-1.3); Total Protein 7.9 g/dL (6.3-8.2)
--- NOTE | 2021-12-06 16:38 | ED ---
Abdominal Pain HPI - General Chief Complaint: Abdominal Pain Stated Complaint: Crohn's Flare up Time Seen by Provider: 12/06/21 16:04 Source: patient, RN notes reviewed Mode of arrival: ambulatory Limitations: no limitations - History of Present Illness Initial Comments: This is a pleasant 41-year-old male who has history of multiple medical c omorbidities to include osteoarthritis, acid reflux, hypertension, rheumatoid arthritis, Crohn's disease with subsequent colostomy. Previous pancreatitis and previous problems with renal failure. Patient presents to the emergency department stating that he has had 3 or 4 days if not feeling well. He is describing generalized body aching, abdominal pain, decreased output in the colostomy, decreased urinary output. Nausea. And lightheadedness. Patient also complaining of mild left earache, really denies any chest pain or shortness of breath. No rashes or lesions. Believes he might have an infection but does not have a fever. Has been upstairs here at the hospital sitting with his ill mother. No headache, no changes in vision or hearing, no sore throat or difficulty with speech, no neck pain, no chest pain or shortness of breath, , no numbness or tingling, no extremity pain, no skin rashes or lesions. - Related Data Home Medications Medication Instructions Recorded Confirmed oxyCODONE HCL/ACETAMINOPHEN 1 tab PO TID PRN 12/11/14 12/06/21 [Percocet 10-325 mg] Albuterol Sulfate [Ventolin HFA] 2 puff INHALATION RT-Q4H PRN 12/19/20 12/06/21 Omeprazole [PriLOSEC] 20 mg PO DAILY 12/19/20 12/06/21 amLODIPine [Norvasc] 10 mg PO DAILY 12/19/20 12/06/21 buPROPion XL [Wellbutrin XL] 150 mg PO DAILY 12/19/20 12/06/21 busPIRone HCl [Buspar] 10 mg PO BID 12/19/20 12/06/21 Hydrochlorothiazide 12.5 mg PO DAILY 04/09/21 12/06/21 [hydroCHLOROthiazide] Dicyclomine [Bentyl] 20 mg PO AC-BRKFST 12/06/21 12/06/21 Escitalopram [Lexapro] 10 mg PO DAILY 12/06/21 12/06/21 Metoclopramide [Reglan] 10 mg PO Q6H PRN 12/06/21 12/06/21 QUEtiapine [SEROquel] 100 - 200 mg PO HS PRN 12/06/21 12/06/21 Ustekinumab [Stelara] 90 mg SQ Q60D 12/06/21 12/06/21 ondansetron HCL [Zofran] 8 mg PO TID PRN 12/06/21 12/06/21 predniSONE [Deltasone] 40 mg PO DAILY 12/06/21 12/06/21 Allergies Allergy/AdvReac Type Severity Reaction Status Date / Time infliximab [From Remicade] Allergy Anaphylaxis Verified 12/06/21 17:28 lisinopril Allergy Anaphylaxis Verified 12/06/21 17:28 lactose AdvReac Nausea & Verified 12/06/21 17:28 Vomiting & Diarrhea NSAIDS (Non-Steroidal AdvReac Unknown Verified 12/06/21 17:28 Anti-Inflamma Review of Systems ROS Statement: Those systems with pertinent positive or pertinent negative responses have been documented in the HPI. ROS Other: All systems not noted in ROS Statement are negative. Past Medical History Past Medical History: GERD/Reflux, Hypertension, Osteoarthritis (OA), Rheumatoid Arthritis (RA) Additional Past Medical History / Comment(s): herniated discs, carpal tunnel, Crohns WITH OSTOMY PLACEMENT DECEMBER 15 2012, pancreatitis History of Any Multi-Drug Resistant Organisms: None Reported, C-DIFF MDRO Source:: 2018 Past Surgical History: Bowel Resection Additional Past Surgical History / Comment(s): OSTOMY PLACEMENT DECEMBER 15 2012 Past Anesthesia/Blood Transfusion Reactions: No Reported Reaction Additional Past Anesthesia/Blood Transfusion Reaction / Comment(s): DELIRIUM Past Psychological History: Anxiety, Depression Smoking Status: Former smoker Past Alcohol Use History: None Reported Past Drug Use History: Marijuana - Past Family History Mother Family Medical History: Hypertension Father Family Medical History: CVA/TIA, Hypertension General Exam - General Exam Comments Initial Comments: 41-year-old male in mild distress secondary to abdominal pain. Patient appears to be ill but not toxic. Vital signs reviewed. Capillary refill is approximately 3 seconds. Limitations: no limitations General appearance: alert, in distress Head exam: Present: atraumatic, normocephalic, normal inspection Eye exam: Present: normal appearance, PERRL, EOMI. Absent: scleral icterus, conjunctival injection, periorbital swelling ENT exam: Present: normal exam, mucous membranes dry, mucous membranes moist, TM's normal bilaterally, normal external ear exam, other (Cerumen bilaterally however no evidence of erythema or dull TMs. TMs are pearly jacob. EACs are patent) Neck exam: Present: normal inspection, full ROM. Absent: tenderness, meningismus, lymphadenopathy Respiratory exam: Present: normal lung sounds bilaterally. Absent: respiratory distress, wheezes, rales, rhonchi, stridor Cardiovascular Exam: Present: regular rate, normal rhythm, normal heart sounds. Absent: systolic murmur, diastolic murmur, rubs, gallop, clicks GI/Abdominal exam: Present: soft, tenderness, guarding, normal bowel sounds, other (Colostomy seen in the area of the right lower quadrant with output.). Absent: distended, rebound, rigid exam: Present: normal inspection Extremities exam: Present: normal inspection, full ROM, normal capillary refill. Absent: tenderness, pedal edema, joint swelling, calf tenderness Back exam: Present: normal inspection Neurological exam: Present: alert, oriented X3, CN II-XII intact Psychiatric exam: Present: normal affect, normal mood Skin exam: Present: warm, dry, intact, normal color. Absent: rash Course Vital Signs 12/06/21 12/06/21 15:42 17:05 Temperature 99.0 F Pulse Rate 99 80 Respiratory 22 18 Rate Blood Pressure 132/99 146/96 O2 Sat by Pulse 95 99 Oximetry - Reevaluation(s) Reevaluation #1: 12/06/21 18:06 Medical record is reviewed Symptoms are mildly improved here in the emergency department Patient is informed of results and questions answered Patient in no distress Reevaluation #2: 12/06/21 19:06 Medical record is reviewed Patient hemodynamically stable. Call placed for the patient's admitting physician. Patient in no distress Medical Decision Making - Medical Decision Making Patient has evidence of acute kidney injury with a creatinine 1.73. It was 0.9 at last visit. I'm going to order a noncontrast CT. Patient will be admitted. Case discussed with ED attending physician as well as the patient's admitting physician. Computed tomography scan shows no evidence of acute changes. Note that the patient sees Dr. parmar out of [facility] for colorectal surgical care. Patient has previously been assessed by Dr. Hale. Patient admitted for observation under Dr. austin - Lab Data Result diagrams: 12/06/21 16:11 12/06/21 16:11 Lab Results 12/06/21 12/06/21 12/06/21 Range/Units 16:11 16:11 16:11 WBC 12.3 H (3.8-10.6) k/uL RBC 4.09 L (4.30-5.90) m/uL Hgb 13.3 (13.0-17.5) gm/dL Hct 39.5 (39.0-53.0) % MCV 96.6 (80.0-100.0) fL MCH 32.5 (25.0-35.0) pg MCHC 33.6 (31.0-37.0) g/dL RDW 14.2 (11.5-15.5) % Plt Count 272 (150-450) k/uL MPV 6.7 Neutrophils % 87 % Lymphocytes % 5 % Monocytes % 6 % Eosinophils % 0 % Basophils % 0 % Neutrophils # 10.7 H (1.3-7.7) k/uL Lymphocytes # 0.7 L (1.0-4.8) k/uL Monocytes # 0.7 (0-1.0) k/uL Eosinophils # 0.0 (0-0.7) k/uL Basophils # 0.0 (0-0.2) k/uL Sodium 134 L (137-145) mmol/L Potassium 3.5 (3.5-5.1) mmol/L Chloride 97 L (98-107) mmol/L Carbon Dioxide 26 (22-30) mmol/L Anion Gap 11 mmol/L BUN 34 H (9-20) mg/dL Creatinine 1.73 H (0.66-1.25) mg/dL Est GFR (CKD-EPI)AfAm 55 (>60 ml/min/1.73 sqM) Est GFR (CKD-EPI)NonAf 48 (>60 ml/min/1.73 sqM) Glucose 115 H (74-99) mg/dL Plasma Lactic Acid Jonathan 1.3 (0.7-2.0) mmol/L Calcium 9.8 (8.4-10.2) mg/dL Phosphorus (2.5-4.5) mg/dL Magnesium (1.6-2.3) mg/dL Total Bilirubin 0.9 (0.2-1.3) mg/dL AST 61 H (17-59) U/L ALT 26 (4-49) U/L Alkaline Phosphatase 56 (38-126) U/L Troponin I (0.000-0.034) ng/mL Total Protein 7.9 (6.3-8.2) g/dL Albumin 4.8 (3.5-5.0) g/dL Amylase 155 H (30-110) U/L Lipase 368 H (23-300) U/L 12/06/21 12/06/21 Range/Units 16:42 16:42 WBC (3.8-10.6) k/uL RBC (4.30-5.90) m/uL Hgb (13.0-17.5) gm/dL Hct (39.0-53.0) % MCV (80.0-100.0) fL MCH (25.0-35.0) pg MCHC (31.0-37.0) g/dL RDW (11.5-15.5) % Plt Count (150-450) k/uL MPV Neutrophils % % Lymphocytes % % Monocytes % % Eosinophils % % Basophils % % Neutrophils # (1.3-7.7) k/uL Lymphocytes # (1.0-4.8) k/uL Monocytes # (0-1.0) k/uL Eosinophils # (0-0.7) k/uL Basophils # (0-0.2) k/uL Sodium (137-145) mmol/L Potassium (3.5-5.1) mmol/L Chloride (98-107) mmol/L Carbon Dioxide (22-30) mmol/L Anion Gap mmol/L BUN (9-20) mg/dL Creatinine (0.66-1.25) mg/dL Est GFR (CKD-EPI)AfAm (>60 ml/min/1.73 sqM) Est GFR (CKD-EPI)NonAf (>60 ml/min/1.73 sqM) Glucose (74-99) mg/dL Plasma Lactic Acid Jonathan (0.7-2.0) mmol/L Calcium (8.4-10.2) mg/dL Phosphorus 3.2 (2.5-4.5) mg/dL Magnesium 1.9 (1.6-2.3) mg/dL Total Bilirubin (0.2-1.3) mg/dL AST (17-59) U/L ALT (4-49) U/L Alkaline Phosphatase (38-126) U/L Troponin I <0.012 (0.000-0.034) ng/mL Total Protein (6.3-8.2) g/dL Albumin (3.5-5.0) g/dL Amylase (30-110) U/L Lipase (23-300) U/L - EKG Data EKG Comments: EKG done at 1649 and regular ED attending physician shows sinus rhythm with voltage criteria for LVH, no acute ST or T-wave changes. Normal intervals. Normal axis. Normal QRS morphology otherwise. - Radiology Data Radiology results: report reviewed, image reviewed Disposition Clinical Impression: Acute kidney injury, Abdominal pain, Dehydration, Elevated lipase Disposition: ADMITTED IP TO THIS HOSP Condition: Stable Referrals: Emile Rodríguez MD [Primary Care Provider] - 1-2 days Time of Disposition: 18:07
[2021-12-06 17:24] LABS: Magnesium 1.9 mg/dL (1.6-2.3); Phosphorus 3.2 mg/dL (2.5-4.5)
[2021-12-06] MEDS ORDERED: BACITRACIN OINT 1 EACH PACKET TOPICAL ONE (17:42)
[2021-12-06] MEDS ORDERED: CEPHALEXIN 500 MG CAP PO STA (17:43)
--- NOTE | 2021-12-06 18:55 | CT ---
EXAMINATION TYPE: CT abdomen pelvis wo con DATE OF EXAM: 12/06/2021 COMPARISON: 03/04/2021 HISTORY: Abdominal pain, nausea and vomiting. History of Crohn's. CT DLP: 377.9 mGycm Automated exposure control for dose reduction was used. Images obtained from the diaphragm to the floor the pelvis with no contrast. Lung bases are clear. There is no pleural effusion. Heart size is normal. There is no pericardial eff usion. Liver spleen pancreas and gallbladder appear intact. Bile ducts are nondilated. Stomach is int act. There is no adrenal mass. Kidneys have normal size. There is no hydronephrosis. Ureters are not dilat ed. There is no retroperitoneal adenopathy. There is stoma in the right mid abdomen. There is rectal stump. There is apparent total colectomy. There is no evidence of a bowel obstruction. There is no fr ee air. There is no ascites. No mesenteric edema. The lumbar vertebrae have normal alignment. Posteri or element are intact. There is no compression fracture. There is a small calcified posterior disc he rniation at L1-2. Bony pelvis is intact. IMPRESSION: No acute abnormality of the abdomen pelvis. Ileostomy noted. No bowel obstruction. No adverse change.
[2021-12-06] MEDS ORDERED: NALOXONE 0.4 MG/ML 1 ML VIAL IV PRN (19:18)
[2021-12-06] MEDS ORDERED: ACETAMINOPHEN TAB 325 MG TAB PO PRN (19:18)
[2021-12-06] MEDS ORDERED: HYDROmorphone 1 MG/ML 1 ML SYRINGE IVP PRN (19:18)
[2021-12-06] MEDS: PANTOPRAZOLE 40 MG/10 ML VIAL IV SCH (19:40)
[2021-12-06] MEDS: SODIUM CHLORIDE 0.9% 1,000 ML IV SCH ×2 (19:44→22:09)
[2021-12-06] MEDS ORDERED: QUEtiapine 100 MG TAB PO PRN (22:21)
[2021-12-06] MEDS ORDERED: ONDANSETRON 4 MG TAB PO PRN (22:21)
[2021-12-07] MEDS: HYDROmorphone 0.5 MG/0.5 ML SYRINGE IVP PRN ×6 (06:01→23:12)
[2021-12-07] MEDS: ONDANSETRON 4 MG/2 ML VIAL IVP PRN ×3 (06:01→23:12)
[2021-12-07 06:38] LABS: Appearance,Urine Clear (Clear); Bilirubin,Urine Negative (Negative); Blood,Urine Negative (Negative); Color,Urine Light Yellow; Glucose,Urine (UA) Negative (Negative); Ketones,Urine 1+ (Negative); Leukocyte Esterase,Urine Negative (Negative); Nitrite,Urine Negative (Negative); Protein,Urine Negative (Negative); Specific Gravity,Urine 1.011 (1.001-1.035); Urobilinogen,Urine <2.0 mg/dL (<2.0)
[2021-12-07] MEDS: ENOXAPARIN 40 MG/0.4 ML SYRINGE SQ SCH (07:39)
[2021-12-07] MEDS: PANTOPRAZOLE 40 MG TABLET PO SCH (07:40)
[2021-12-07] MEDS: busPIRone HCl 10 MG TAB PO SCH ×2 (07:40→20:33)
[2021-12-07] MEDS: amLODIPine 10 MG TAB PO SCH (07:40)
[2021-12-07] MEDS: predniSONE 20 MG TAB PO SCH (07:42)
[2021-12-07] MEDS: SODIUM CHLORIDE 0.9% 1,000 ML IV SCH ×2 (07:52→16:27)
[2021-12-07] MEDS: PANTOPRAZOLE 40 MG/10 ML VIAL IV SCH (08:01)
[2021-12-07 09:16] LABS: Basophils # (A) 0.01 X 10*3/uL (0.00-0.10); Basophils % (A) 0.1 %; Eosinophils # (A) 0.08 X 10*3/uL (0.04-0.35); HCT 37.8 % (39.6-50.0); HGB 12.2 g/dL (13.0-17.0); Immature Grans, Automated 0.5 %; Lymphocytes # (A) 1.81 X 10*3/uL (0.90-5.00); Lymphocytes % (A) 21.5 %; MCH 30.9 pg (27.0-32.0); MCHC 32.3 g/dL (32.0-37.0); MCV 95.7 fL (80.0-97.0); Mean Platelet Volume 9.2 fL (9.5-12.2); Monocytes # (A) 0.76 X 10*3/uL (0.20-1.00); NRBC Per 100 WBC 0 /100 WBCS (0.0-0.0); Neutrophils # (A) 5.71 X 10*3/uL (1.80-7.70); Neutrophils % (A) 67.9 %; Platelet Count 218 X 10*3/uL (140-440); RBC 3.95 X 10*6/uL (4.40-5.60); RDW 13.4 % (11.5-14.5); WBC 8.41 X 10*3/uL (4.50-10.00)
[2021-12-07 09:30] LABS: African American GFR (CKD) 90.5 (60.0-200.0); Albumin 4.2 g/dL (3.8-4.9); Albumin/Globulin Ratio 1.99 (1.60-3.17); Anion Gap 13.1 mmol/L (10.00-18.00); BUN/Creat Ratio 17.65 Ratio (12.00-20.00); Blood Urea Nitrogen 20.3 mg/dL (9.0-27.0); Carbon Dioxide 25.3 mmol/L (20.0-27.5); Globulin 2.1 g/dL (1.6-3.3); Non-African American GFR(CKD) 78.1 (60.0-200.0); Potassium 3.5 mmol/L (3.5-5.5); Total Bilirubin 0.6 mg/dL (0.30-1.20); Total Protein 6.3 g/dL (6.2-8.2)
[2021-12-07] MEDS: buPROPion XL 150 MG TAB.ER.24H PO SCH (09:41)
--- NOTE | 2021-12-07 11:20 | P.HPIM ---
History of Present Illness This is a pleasant 41 male with Past medical history of GERD, osteoarthritis, rheumatoid arthritis, herniated disc, carpal tunnel, crohn disease with ostomy placement on 2012, pancreatitis, C. diff. History of anxiety depression. He is a patient of Dr. Rodríguez. His been complaining of from hot flashes, nausea vomiting over the last 4 days, he vomited all over 70 times, only yesterday twice associated with some lightheadedness weakness, decreased appetite and sweating. Today he was with his mother at bedside in the hospital when he felt lightheadedness and passed out while he was sitting in the chair because of his nausea vomiting as he describes. Patient says that he has chronic abdominal pain is been going on for many years related to his Crohn's disease and he has history of right lower abdomen ileostomy, he is following up with his Dr. neely. However over the last 3-4 days she's been having worsening abdominal pain and periumbilical going to the rib cage on both sides as spreading into the back. He states usually he has a frequent bowel movements but lately has been slowed down, yesterday he had only 2 loose bowel movement. However abdominal examination looks benign with minimal tenderness, no guarding or rebound tenderness. Patient's supposed to be on a prednisone 50 mg daily, lately it was been trying to be tapered down by his primary doctors and currently he is on 40 mg daily. Patient also has been complaining of from mild bilateral knee and ankle joint pains for the last 3 days. He smokes half pack per day, he was counseled to quit he declines nicotine patch. Uses marijuana occasionally, no illicit drugs. Patient is hemodynamically stable. Labs showed mild leukocytosis of 12.3, ESR is elevated 53, creatinine is high at 1.73, baseline is normal 0.9. Liver enzymes not elevated. Magnesium 1.9. Amylase slightly high at 155 and lipase is slightly high at 368. Urine Analysis is not suspicious of infection and Coronavirus not detected EKG showing normal sinus rhythm at [address] with [address] of the abdomen and pelvis: No acute abnormality of the abdomen and pelvis, ileostomy noted, normal obstruction, no adverse changes. In the emergency room he received normal saline, Zofran, and Keflex times one. this morning repeat labs showing improved creatinine back to reference range 1.2. Rest of CBC, BMP is unremarkable except for marked low hemoglobin at 12.2. Urinalysis is not suspicious for infection Review of Systems CONSTITUTIONAL: No fever, no malaise, no fatigue. HEENT: No recent visual problems or hearing problems. Denied any sore throat. CARDIOVASCULAR: No orthopnea, PND, no palpitations, no syncope. PULMONARY: No shortness of breath, no cough, no hemoptysis. GASTROINTESTINAL: No diarrhea, no nausea, no vomiting, no abdominal pain. Normoactive bowel sounds. NEUROLOGICAL: No headaches, no weakness, no numbness. HEMATOLOGICAL: Denies any bleeding or petechiae. GENITOURINARY: Denies any burning micturition, frequency, or urgency. MUSCULOSKELETAL/RHEUMATOLOGICAL: Denies any joint pain, swelling, or any muscle pain. ENDOCRINE: Denies any polyuria or polydipsia. Past Medical History Past Medical History: GERD/Reflux, Hypertension, Osteoarthritis (OA), Rheumatoid Arthritis (RA) Additional Past Medical History / Comment(s): herniated discs, carpal tunnel, Crohns WITH OSTOMY PLACEMENT DECEMBER 15 2012, pancreatitis History of Any Multi-Drug Resistant Organisms: None Reported, C-DIFF Date of last positivie culture/infection: unknown MDRO Source:: stool Past Surgical History: Bowel Resection Additional Past Surgical History / Comment(s): OSTOMY PLACEMENT DECEMBER 15 2012 Past Anesthesia/Blood Transfusion Reactions: No Reported Reaction Additional Past Anesthesia/Blood Transfusion Reaction / Comment(s): DELIRIUM Past Psychological History: Anxiety, Depression Smoking Status: Current some day smoker Past Alcohol Use History: None Reported Past Drug Use History: Marijuana Additional Drug Use History / Comment(s): every day marijuana, half pack per day cigarette smoker - Past Family History Mother Family Medical History: Hypertension Father Family Medical History: CVA/TIA, Hypertension Medications and Allergies Home Medications Medication Instructions Recorded Confirmed Type oxyCODONE HCL/ACETAMINOPHEN 1 tab PO TID PRN 12/11/14 12/06/21 History [Percocet 10-325 mg] Albuterol Sulfate [Ventolin HFA] 2 puff INHALATION RT-Q4H PRN 12/19/20 12/06/21 History Omeprazole [PriLOSEC] 20 mg PO DAILY 12/19/20 12/06/21 History amLODIPine [Norvasc] 10 mg PO DAILY 12/19/20 12/06/21 History buPROPion XL [Wellbutrin XL] 150 mg PO DAILY 12/19/20 12/06/21 History busPIRone HCl [Buspar] 10 mg PO BID 12/19/20 12/06/21 History Hydrochlorothiazide 12.5 mg PO DAILY 04/09/21 12/06/21 History [hydroCHLOROthiazide] Dicyclomine [Bentyl] 20 mg PO AC-BRKFST 12/06/21 12/06/21 History Escitalopram [Lexapro] 10 mg PO DAILY 12/06/21 12/06/21 History Metoclopramide [Reglan] 10 mg PO Q6H PRN 12/06/21 12/06/21 History QUEtiapine [SEROquel] 100 - 200 mg PO HS PRN 12/06/21 12/06/21 History Ustekinumab [Stelara] 90 mg SQ Q60D 12/06/21 12/06/21 History ondansetron HCL [Zofran] 8 mg PO TID PRN 12/06/21 12/06/21 History predniSONE [Deltasone] 40 mg PO DAILY 12/06/21 12/06/21 History Allergies Allergy/AdvReac Type Severity Reaction Status Date / Time infliximab [From Remicade] Allergy Anaphylaxis Verified 12/06/21 17:28 lisinopril Allergy Anaphylaxis Verified 12/06/21 17:28 lactose AdvReac Nausea & Verified 12/06/21 17:28 Vomiting & Diarrhea NSAIDS (Non-Steroidal AdvReac Unknown Verified 12/06/21 17:28 Anti-Inflamma Physical Exam Vitals: Vital Signs Temp Pulse Pulse Resp BP BP Pulse Ox 12/07/21 01:29 97.6 F 61 16 153/79 97 12/06/21 21:29 97.8 F 68 16 158/95 97 12/06/21 20:21 98.7 F 66 18 133/89 97 12/06/21 17:05 80 18 146/96 99 12/06/21 15:42 99.0 F 99 22 132/99 95 Intake and Output 12/06/21 12/07/21 12/07/21 21:59 06:59 14:59 Other: # Voids # Bowel Movements Weight GENERAL: The patient is alert and oriented x3, not in any acute distress. Well developed, well nourished. HEENT: Pupils are round and equally reacting to light. EOMI. No scleral icterus. No conjunctival pallor. Normocephalic, atraumatic. No pharyngeal erythema. No thyromegaly. CARDIOVASCULAR: S1 and S2 present. No murmurs, rubs, or gallops. PULMONARY: Chest is clear to auscultation, no wheezing or crackles. ABDOMEN: Soft, nontender, nondistended, normoactive bowel sounds. No palpable organomegaly. Right lower abdomen ileostomy back with soft light brown stool MUSCULOSKELETAL: No joint swelling or deformity. EXTREMITIES: No cyanosis, clubbing, or pedal edema. NEUROLOGICAL: Gross neurological examination did not reveal any focal deficits. SKIN: No rashes. No petechiae Results CBC & Chem 7: 12/07/21 06:25 12/07/21 06:25 Labs: Abnormal Lab Results - Last 24 Hours (Table) 12/06/21 12/06/21 12/06/21 Range/Units 16:11 16:11 16:11 WBC 12.3 H (3.8-10.6) k/uL RBC 4.09 L (4.30-5.90) m/uL Neutrophils # 10.7 H (1.3-7.7) k/uL Lymphocytes # 0.7 L (1.0-4.8) k/uL ESR 53 H (0-15) mm/hr Sodium 134 L (137-145) mmol/L Chloride 97 L (98-107) mmol/L BUN 34 H (9-20) mg/dL Creatinine 1.73 H (0.66-1.25) mg/dL Glucose 115 H (74-99) mg/dL AST 61 H (17-59) U/L Amylase 155 H (30-110) U/L Lipase 368 H (23-300) U/L Urine Ketones (Negative) 12/07/21 Range/Units 06:09 WBC (3.8-10.6) k/uL RBC (4.30-5.90) m/uL Neutrophils # (1.3-7.7) k/uL Lymphocytes # (1.0-4.8) k/uL ESR (0-15) mm/hr Sodium (137-145) mmol/L Chloride (98-107) mmol/L BUN (9-20) mg/dL Creatinine (0.66-1.25) mg/dL Glucose (74-99) mg/dL AST (17-59) U/L Amylase (30-110) U/L Lipase (23-300) U/L Urine Ketones 1+ H (Negative) Thrombosis Risk Factor Assmnt - Choose All That Apply Each Factor Represents 1 point: Age 41-60 years, Obesity (BMI >25) Thrombosis Risk Factor Assessment Total Risk Factor Score: 2 Thrombosis Risk Factor Assessment Level: Low Risk Assessment and Plan Assessment: Abdominal pain, acute on chronic. Possible Crohn's disease exacerbation. ESR is elevated but CRP is negative however patient is on steroids. Syncope, mostly because of illegal. Rule out cardiac causes Acute kidney injury, resolved crohn disease with ostomy placement on 2012, Nicotine dependence History of History of GERD Hypertension Osteoarthritis Rheumatoid arthritis Plan: This is a pleasant 42 years old male who presents with abdominal pain continue with gentle hydration and/or IV fluids normal saline 1:30 down to 75 mL/h continue with prednisone 40 mg daily his home dose Consults cartilage surface for the syncope although it's most likely was a vagal Consults GI service which will be available tomorrow as per staff. Labs and medication were reviewed.. Continue same treatment. Continue with symptomatic treatment. Resume home medication. Monitor lytes and vitals. DVT and GI prophylaxis. Further recommendations depends on the clinical course of the patient DVT prophylaxis: Subcutaneous heparin GI Prophylaxis: Ppi Prognosis is guarded Dr. Rodríguez team will resume the care of the patient tomorrow
--- NOTE | 2021-12-07 15:03 | CONS ---
CONSULTATION Mr. Mathew is a 41-year-old gentleman with history of Crohn's disease, hypertension and COPD who is admitted to hospital with abdominal pain. He has been having symptoms of nausea, vomiting; has had multiple vomiting and felt lightheaded, dizzy and near- syncopal as a result, for which Cardiology has been consulted. There is no history of focal neurological deficits. There is no history of chest pain or difficulty in breathing. He could have had a vasovagal episode from his description. Patient has known Crohn's disease and had a colostomy. His EKG shows sinus rhythm with early repolarization changes. Labs show that the hemoglobin is normal, potassium is 3.5, creatinine is 1.2. He was quite dehydrated on his initial presentation with a BUN of and a creatinine of 1.7, which is probably responsible for his cardiac symptoms. PAST MEDICAL HISTORY: Significant for Crohn's disease and hypertension. MEDICATIONS: Medications at home included Zofran, Seroquel, Reglan, Lexapro, Bentyl, BuSpar, Wellbutrin, Norvasc, Prilosec, hydrochlorothiazide, albuterol. ALLERGIES: CHARTED, INCLUDING LISINOPRIL, REMICADE AND NSAIDS. REVIEW OF SYSTEMS: Fourteen out of 14 review of systems has been performed. Pertinents are as described in history of presenting illness. FAMILY HISTORY: Negative for premature coronary artery disease. SOCIAL HISTORY: Significant for smoking. He smokes marijuana. There is no history of EtOH abuse or drug abuse. PHYSICAL EXAMINATION: Afebrile. Heart rate is 78 beats per minute. Blood pressure is 140/92, respiratory rate 18. Chest exam reveals good air entry bilaterally. Heart exam reveals first and second heart sounds. No gallop. There is a systolic murmur at the left lower sternal border. Abdomen is soft. Examination of extremities did not reveal any edema. Peripheral pulses are felt. LABS: Labs show that the hemoglobin is 12.2, potassium is 3.5, creatinine is 1.2. Coronavirus is negative. ASSESSMENT: 1. Near-syncope secondary to intravascular volume depletion. 2. Crohn's disease. PLAN: I will obtain a 2D echo on him tomorrow. If necessary, work him up further. MMODL / IJN: [id number] /
[2021-12-07] MEDS: METOCLOPRAMIDE 10 MG TAB PO PRN (20:33)
[2021-12-08] MEDS: HYDROmorphone 0.5 MG/0.5 ML SYRINGE IVP PRN ×7 (04:07→23:10)
[2021-12-08] MEDS: buPROPion XL 150 MG TAB.ER.24H PO SCH (07:52)
[2021-12-08] MEDS: busPIRone HCl 10 MG TAB PO SCH ×2 (07:52→20:18)
[2021-12-08] MEDS: ONDANSETRON 4 MG/2 ML VIAL IVP PRN (07:52)
[2021-12-08] MEDS: amLODIPine 10 MG TAB PO SCH (07:52)
[2021-12-08] MEDS: PANTOPRAZOLE 40 MG TABLET PO SCH (07:52)
[2021-12-08] MEDS: ENOXAPARIN 40 MG/0.4 ML SYRINGE SQ SCH (07:53)
[2021-12-08] MEDS: predniSONE 20 MG TAB PO SCH (07:53)
[2021-12-08] MEDS: SODIUM CHLORIDE 0.9% 1,000 ML IV SCH ×2 (09:25→23:13)
--- NOTE | 2021-12-08 11:08 | P.PN ---
Subjective Progress Note Date: 12/08/21 HISTORY OF PRESENT ILLNESS: This is a 41-year-old male with a history of Crohn's disease was admitted to the hospital with abdominal pain. Cardiology was consulted yesterday to evaluate patient for dizziness and near syncope. Patient examined this point the bedside. Patient denies chest pain or pressure. He denies shortness of breath. He does report some dizziness and lightheadedness with ambulation. He also reports a fullness sensation in his left ear this morning. PHYSICAL EXAM: VITAL SIGNS: Reviewed. GENERAL: Well-developed in no acute distress. NECK: Supple. No JVD or thyromegaly LUNGS: Respirations even and unlabored. Lungs essentially clear to auscultation bilaterally. HEART: Regular rate and rhythm. S1 and S2 heard. EXTREMITIES: Normal range of motion. No clubbing or cyanosis. Peripheral pulses intact. No lower extremity edema ASSESSMENT: Presyncope, suspect secondary to intravascular volume ablation Crohn's disease PLAN: Obtain 2-D echo to assess chronic stricture production If echocardiogram does not reveal any significant abnormalities, we will sign off. Further recommendations pending patient course Nurse practitioner note has been reviewed by physician. Signing provider agrees with the documented findings, assessment, and plan of care. Objective - Vital Signs Vital signs: Vital Signs Temp 97.9 F 12/08/21 07:00 Pulse 62 12/08/21 08:00 Resp 18 12/08/21 08:00 BP 141/91 12/08/21 07:00 Pulse Ox 98 12/08/21 07:00 Intake & Output 12/07/21 12/08/21 12/08/21 18:59 06:59 18:59 Intake Total 945 473 Balance 945 473 Intake: Oral 945 473 Other: Voiding Method Toilet # Voids 1 1 # Bowel Movements 1 1 - Labs CBC & Chem 7: 12/07/21 06:25 12/07/21 06:25
--- NOTE | 2021-12-08 11:15 | P.CONS ---
History of Present Illness - Reason for Consult Consult date: 12/08/21 Abdominal pain, history of crohn's disease Requesting physician: Emile Rodríguez - Chief Complaint abdominal pain - History of Present Illness Assessment 41-year-old male who presented to the emergency department with multiple complaints including abdominal pain, nausea, lightheadedness, headache, syncope, fatigue and weakness. Has a past medical history including juvenile Crohn's diagnosed at age 9. Patient is status post bowel resection with ileostomy he believes in 2012. He had been seeing a Dr. Valverde which was the gastroenterologists/colorectal specialist. He states he has not seen him in a while because he had disagreed with his recommendations. The patient states he is currently on Strattera every 2 weeks, last dose one week ago, he is been on mesalamine however has difficult time dissolving so has not been consistent with that, as well as prednisone 40 mg daily. States he's been steroid dependent and his medications are being managed by his primary medicine physician Dr. Rodríguez. In a CT of the abdomen and pelvis which showed no acute findings. He states he has not had a colonoscopy since his ileostomy. He has been having decreased output from his ostomy which has been loose and brown. Denies any blood in his stool. He denies any fevers or chills. Patient had a max temp of 99.0 on admission and has been afebrile. He said pain is diffuse, greatest in his left lower quadrant but also states that it wraps around into his back. He did have an elevated sed rate of 53, CRP normal Review of Systems REVIEW OF SYSTEMS: CARDIOPULMONARY: No chest pain or shortness of breath. Gastrointestinal: Diffuse abdominal pain, worse in left lower quadrant. Wraps around to back. Nausea, no vomiting. No hematemesis, coffee-ground emesis. No rectal bleeding, or melena. GENITOURINARY: No dysuria or hematuria. MUSCULOSKELETAL: Reports normal range of motion., Joint pain. SKIN: No rashes. No jaundice. ENDOCRINE: No chills, fevers. No excessive weight gain or loss. No polydipsia or polyuria. PSYCHIATRIC: Unremarkable. NEUROLOGY: No change in mental status. Reports headache, dizziness, fatigue, weakness. ENT: Vision unremarkable. CONSTITUTIONAL: No recent weight loss. No fever, chills, night sweats. Past Medical History Past Medical History: GERD/Reflux, Hypertension, Osteoarthritis (OA), Rheumatoid Arthritis (RA) Additional Past Medical History / Comment(s): herniated discs, carpal tunnel, Crohns WITH OSTOMY PLACEMENT DECEMBER 15 2012, pancreatitis History of Any Multi-Drug Resistant Organisms: None Reported, C-DIFF Year Discovered:: unknown MDRO Source:: stool Past Surgical History: Bowel Resection Additional Past Surgical History / Comment(s): OSTOMY PLACEMENT DECEMBER 15 2012 Past Anesthesia/Blood Transfusion Reactions: No Reported Reaction Additional Past Anesthesia/Blood Transfusion Reaction / Comm: DELIRIUM Past Psychological History: Anxiety, Depression Smoking Status: Current some day smoker Past Alcohol Use History: None Reported Past Drug Use History: Marijuana Additional Drug Use History / Comment(s): every day marijuana, half pack per day cigarette smoker - Past Family History Mother Family Medical History: Hypertension Father Family Medical History: CVA/TIA, Hypertension Medications and Allergies Home Medications Medication Instructions Recorded Confirmed Type oxyCODONE HCL/ACETAMINOPHEN 1 tab PO TID PRN 12/11/14 12/06/21 History [Percocet 10-325 mg] Albuterol Sulfate [Ventolin HFA] 2 puff INHALATION RT-Q4H PRN 12/19/20 12/06/21 History Omeprazole [PriLOSEC] 20 mg PO DAILY 12/19/20 12/06/21 History amLODIPine [Norvasc] 10 mg PO DAILY 12/19/20 12/06/21 History buPROPion XL [Wellbutrin XL] 150 mg PO DAILY 12/19/20 12/06/21 History busPIRone HCl [Buspar] 10 mg PO BID 12/19/20 12/06/21 History Hydrochlorothiazide 12.5 mg PO DAILY 04/09/21 12/06/21 History [hydroCHLOROthiazide] Dicyclomine [Bentyl] 20 mg PO AC-BRKFST 12/06/21 12/06/21 History Escitalopram [Lexapro] 10 mg PO DAILY 12/06/21 12/06/21 History Metoclopramide [Reglan] 10 mg PO Q6H PRN 12/06/21 12/06/21 History QUEtiapine [SEROquel] 100 - 200 mg PO HS PRN 12/06/21 12/06/21 History Ustekinumab [Stelara] 90 mg SQ Q60D 12/06/21 12/06/21 History ondansetron HCL [Zofran] 8 mg PO TID PRN 12/06/21 12/06/21 History predniSONE [Deltasone] 40 mg PO DAILY 12/06/21 12/06/21 History Allergies Allergy/AdvReac Type Severity Reaction Status Date / Time infliximab [From Remicade] Allergy Anaphylaxis Verified 12/06/21 17:28 lisinopril Allergy Anaphylaxis Verified 12/06/21 17:28 lactose AdvReac Nausea & Verified 12/06/21 17:28 Vomiting & Diarrhea NSAIDS (Non-Steroidal AdvReac Unknown Verified 12/06/21 17:28 Anti-Inflamma Physical Exam Vitals: Vital Signs Temp Pulse Resp BP BP Pulse Ox 12/08/21 07:00 97.9 F 62 18 141/91 98 12/08/21 01:34 97.9 F 66 15 145/82 100 12/07/21 19:33 97.7 F 85 18 109/64 97 12/07/21 15:00 97.7 F 69 17 133/77 97 Intake and Output 12/07/21 12/08/21 12/08/21 22:59 06:59 14:59 Intake Total 240 Balance 240 Intake: Oral 240 Other: # Voids 1 1 # Bowel Movements 1 General appearance: The patient is alert, oriented, appears in no acute distress. HET: Head is normocephalic and atraumatic. Conjunctiva pink. Sclera anicteric. Neck: Supple without lymphadenopathy. Trachea midline. Heart: S1 S2. Regular rate and rhythm. Lungs: Clear to auscultation. Abdomen: Soft, diffuse tenderness, greatest in the left lower quadrant. Also has flank tenderness bilaterally, nondistended with bowel sounds. Ostomy with loose brown stool. No guarding or rigidity. Skin: No rashes. No jaundice. Extremities: Normal skin color and turgor. No pedal edema. Neurological: No focal deficits. Alert and oriented x3. Results CBC & Chem 7: 12/07/21 06:25 12/07/21 06:25 Labs: Abnormal Lab Results - Last 24 Hours (Table) 12/07/21 12/07/21 Range/Units 06:25 06:25 RBC 3.95 L (4.40-5.60) X 10*6/uL Hgb 12.2 L (13.0-17.0) g/dL Hct 37.8 L (39.6-50.0) % MPV 9.2 L (9.5-12.2) fL AST 42 H (14-35) U/L Comments: CT abdomen and pelvis with no acute abnormality of the abdomen and pelvis. Ileostomy noted. No bowel obstruction. No adverse change. Assessment and Plan (1) Abdominal pain Narrative/Plan: 41-year-old with a history of Crohn's disease diagnosed at the age of 9 with had to undergo ostomy creation he believes in 2012. For which he is unsure why. He has been maintained on still vera, mesalamine and steroids for which she states he's been on 40 mg taper dose. He came in for diffuse abdominal pain, with multiple other symptoms such as lightheadedness, headache, syncope, fatigue and weakness. States he has not been following with gastroenterology or his colorectal specialist in some time. He did present with an elevated sed rate, however CRP was normal. He does have a history of pancreatitis although he is unsure of etiology in the past and denies any history of alcohol abuse. Will order ultrasound of abdomen and Solu-Medrol 20 mg every 8 hours Current Visit: Yes Status: Acute Code(s): R10.9 - UNSPECIFIED ABDOMINAL PAIN SNOMED Code(s): 48650448 (2) History of Crohn's disease Current Visit: Yes Status: Acute Code(s): Z87.19 - PERSONAL HISTORY OF OTHER DISEASES OF THE DIGESTIVE SYSTEM SNOMED Code(s): 023713271937769 Plan: 1. Continue symptomatic and supportive care 2. Keep on clear liquid diet 3. Will change prednisone to Solu-Medrol 20 mg every 8 hours 4. Repeat sed rate, CRP 5. Repeat amylase lipase X. We'll try to obtain records from [facility] and [facility] of previous surgery and any endoscopy Thank you for this consultation, we will continue to follow. Dr. Bouchra Hale I agree with the dictator's note, documented as a scribe by Shaniqua Brand.
--- NOTE | 2021-12-08 13:12 | P.PN ---
Subjective Progress Note Date: 12/08/21 This is a 41-year-old gentleman with abdominal pain with past medical history of Crohn's disease with ostomy, maintained on stulera-recent dose, he reports last week, mesalamine and steroids. CT abdomen /pelvis reporting no acute abnormality of the abdomen and pelvis. Ileostomy noted. No bowel obstruction. No adverse change. Maintained on IV fluid hydration, oral steroids and clear liquid diet. Evaluated by GI with recommendations noted and appreciated. Denies any chest pain, palpitations or shortness of breath. Denies any lightheadedness or dizziness or focal deficits. Echo pending. Afebrile, normal WBC. Tolerating intake of 50-75% clear liquid diet, with no nausea or vomiting. Reports minimal ostomy output .Renal function stable. Objective - Vital Signs Vital signs: Vital Signs Temp 97.9 F 12/08/21 07:00 Pulse 62 12/08/21 08:00 Resp 18 12/08/21 08:00 BP 141/91 12/08/21 07:00 Pulse Ox 98 12/08/21 07:00 Intake & Output 12/07/21 12/08/21 12/08/21 18:59 06:59 18:59 Intake Total 945 473 Balance 945 473 Intake: Oral 945 473 Other: Voiding Method Toilet # Voids 1 1 # Bowel Movements 1 1 - Exam GENERAL: Alert and oriented x3, sitting up in bed, NAD, HEENT: Pupils are round and equally reacting to light. EOMI. No scleral icterus. No conjunctival pallor. Normocephalic, atraumatic. Oral mucosa moist. Neck supple, no JVD. CARDIOVASCULAR: S1 and S2 present. No murmurs, rubs, or gallops. PULMONARY: Chest is clear to auscultation, no wheezing or crackles. ABDOMEN: Soft, nondistended, normoactive bowel sounds. Diffuse tenderness , greatest in the left upper and lower quadrants .no guarding, no rigidity.ileosto my with small amount loose brown stool. EXTREMITIES: No cyanosis, clubbing, or pedal edema. NEUROLOGICAL: Gross neurological examination did not reveal any focal deficits. SKIN: Warm and dry, No rashes - Labs CBC & Chem 7: 12/07/21 06:25 12/07/21 06:25 Labs: Abnormal Lab Results - Last 24 Hours (Table) 12/08/21 Range/Units 08:06 ESR 36 H (0-15) mm/hr Assessment and Plan Assessment: Acute on chronic Abdominal pain , possibly Crohn's exacerbation ,in a patient with history of Crohn's disease, ultrasound pending History of Crohn's disease, ostomy Near syncope suspect related to dehydration, cardiology following Acute renal failure, resolved with IV fluid hydration Gastroesophageal reflux disease History of pancreatitis Hypertension Osteoarthritis Rheumatoid arthritis Anxiety Depression Ongoing nicotine dependence Daily Marijuana use Plan: Continue on current medication regime ,monitoring and symptomatic treatment. Steroids converted to IV push. Abdominal ultrasound and echo pending. IV fluid hydration, close monitoring of renal function. The impression and plan of care has been dictated as directed. : I performed a history and examination of this patient, discussed the same with the dictator. I agree with the dictator's note ,documented as a scribe. Any additional findings or plans will be noted.
[2021-12-08] MEDS: methylPREDNISolone SOD SUCCI 40 MG/ML 1 ML VIAL IV SCH ×2 (15:35→23:10)
[2021-12-08] MEDS: oxyCODONE-APAP 5-325MG 1 EACH TAB PO PRN (15:36)
--- NOTE | 2021-12-08 15:48 | US ---
EXAMINATION TYPE: US abdomen complete DATE OF EXAM: 12/08/2021 COMPARISON: CT CLINICAL HISTORY: abdominal pain, elevated amylase/lipase. Pt states generalized ABD pain, elevated L F's EXAM MEASUREMENTS: Liver Length: 13.8 cm Gallbladder Wall: 0.1 cm CBD: 0.4 cm Spleen: 9.3 cm Right Kidney: 9.6 x 3.9 x 4.9 cm Left Kidney: 9.2 x 5.0 x 4.5 cm Pancreas: wnl Liver: wnl Gallbladder: wnl Evidence for sonographic Will's sign: No CBD: wnl Spleen: wnl Right Kidney: Possible isoechoic, solid lesion upper/mid pole= 1.4 x 1.2 x 1.2 cm Left Kidney: Difficult to visualize due to overlying bowel gas, however, visualized portions appeare d wnl Upper IVC: wnl Abd Aorta: wnl The liver is homogenous. The intrahepatic portion of the IVC and proximal abdominal aorta are within normal limits. There is no evidence of cholelithiasis. Common bile duct is unremarkable. The visu alized portions of the pancreas are homogenous. The spleen is unremarkable. Kidneys are symmetric a nd free of hydronephrosis. IMPRESSION: Right renal lesion is difficult to exclude. I do recommend contrast enhanced CT of the kidneys.
[2021-12-08] MEDS: METOCLOPRAMIDE 10 MG TAB PO PRN (20:53)
[2021-12-09] MEDS: oxyCODONE-APAP 5-325MG 1 EACH TAB PO PRN ×2 (00:10→10:26)
[2021-12-09] MEDS: HYDROmorphone 0.5 MG/0.5 ML SYRINGE IVP PRN ×5 (03:30→19:58)
[2021-12-09] MEDS: amLODIPine 10 MG TAB PO SCH (07:58)
[2021-12-09] MEDS: ENOXAPARIN 40 MG/0.4 ML SYRINGE SQ SCH (07:58)
[2021-12-09] MEDS: PANTOPRAZOLE 40 MG TABLET PO SCH (07:58)
[2021-12-09] MEDS: methylPREDNISolone SOD SUCCI 40 MG/ML 1 ML VIAL IV SCH ×2 (07:58→16:45)
[2021-12-09] MEDS: SODIUM CHLORIDE 0.9% 1,000 ML IV SCH ×2 (08:03→23:58)
[2021-12-09] MEDS: busPIRone HCl 10 MG TAB PO SCH ×2 (08:04→19:58)
[2021-12-09] MEDS: buPROPion XL 150 MG TAB.ER.24H PO SCH (08:04)
[2021-12-09] MEDS: ONDANSETRON 4 MG/2 ML VIAL IVP PRN ×2 (08:06→21:28)
[2021-12-09 09:03] LABS: Basophils # (A) 0.01 X 10*3/uL (0.00-0.10); Basophils % (A) 0.1 %; Eosinophils # (A) 0 X 10*3/uL (0.04-0.35); Eosinophils % (A) 0 %; HCT 37.3 % (39.6-50.0); HGB 12.4 g/dL (13.0-17.0); Immature Grans, Automated 0.4 %; Lymphocytes % (A) 4.8 %; MCH 31.5 pg (27.0-32.0); MCHC 33.2 g/dL (32.0-37.0); MCV 94.7 fL (80.0-97.0); Mean Platelet Volume 9.1 fL (9.5-12.2); Monocytes # (A) 0.28 X 10*3/uL (0.20-1.00); Monocytes % (A) 2.7 %; NRBC Per 100 WBC 0 /100 WBCS (0.0-0.0); Neutrophils # (A) 9.62 X 10*3/uL (1.80-7.70); Platelet Count 200 X 10*3/uL (140-440); RBC 3.94 X 10*6/uL (4.40-5.60); RDW 13.1 % (11.5-14.5); WBC 10.45 X 10*3/uL (4.50-10.00)
[2021-12-09 09:37] LABS: African American GFR (CKD) 121.7 (60.0-200.0); Albumin 4.2 g/dL (3.8-4.9); Anion Gap 13.4 mmol/L (10.00-18.00); BUN/Creat Ratio 9.22 Ratio (12.00-20.00); Blood Urea Nitrogen 8.3 mg/dL (9.0-27.0); Calcium 8.8 mg/dL (8.7-10.3); Carbon Dioxide 22.6 mmol/L (20.0-27.5); Globulin 2.1 g/dL (1.6-3.3); Total Bilirubin 0.3 mg/dL (0.30-1.20); Total Protein 6.3 g/dL (6.2-8.2)
--- NOTE | 2021-12-09 12:34 | P.PN ---
Subjective Progress Note Date: 12/09/21 Principal diagnosis: Abdominal pain, Crohn's disease 41-year-old male with no long-standing history of Crohn's disease diagnosed at the age of 9. He is status post total colectomy with revision and repair of stomal hernia in 2019 seen in follow-up for complaints of abdominal pain/Crohn's flareup. He states he still having some abdominal pain in the left lower quadrant. Mild nausea this morning no vomiting. Also complaining of pain in his back down his legs and basically his whole body. He is afebrile. He has having good output from his ileostomy, nonbloody. Hemoglobin is stable. Yesterday sed rate did come down to 36 from 54. Objective - Vital Signs Vital signs: Vital Signs Temp 97.8 F 12/09/21 03:12 Pulse 68 12/09/21 03:12 Resp 16 12/09/21 03:12 BP 149/84 12/09/21 03:12 Pulse Ox 99 12/09/21 03:12 Intake & Output 12/08/21 12/09/21 12/09/21 18:59 06:59 18:59 Intake Total 946 Balance 946 Intake: Oral 946 Other: Voiding Method Toilet Toilet # Voids 4 - Exam General appearance: The patient is alert, oriented, appears in no acute distress. HET: Head is normocephalic and atraumatic. Conjunctiva pink. Sclera anicteric. Neck: Supple without lymphadenopathy. Abdomen: Soft, tenderness in the left lower quadrant, nondistended with bowel sounds. Ileostomy right side of abdomen with loose brown output. No guarding or rigidity. Extremities: Normal skin color and turgor. No pedal edema Skin: No rashes, no jaundice Neurological: No focal deficits. Alert and oriented x 3. - Labs CBC & Chem 7: 12/09/21 05:37 12/09/21 05:37 Labs: Abnormal Lab Results - Last 24 Hours (Table) 12/08/21 Range/Units 08:06 ESR 36 H (0-15) mm/hr Assessment and Plan (1) Abdominal pain Narrative/Plan: 41-year-old with a history of Crohn's disease diagnosed at the age of 9 with had to undergo ostomy creation he believes in 2012. For which he is unsure why. He has been maintained on still vera, mesalamine and steroids for which she states he's been on 40 mg taper dose. He came in for diffuse abdominal pain, with multiple other symptoms such as lightheadedness, headache, syncope, fatigue and weakness. States he has not been following with gastroenterology or his colorectal specialist in some time. He did present with an elevated sed rate, however CRP was normal. He does have a history of pancreatitis although he is unsure of etiology in the past and denies any history of alcohol abuse. Will order ultrasound of abdomen and Solu-Medrol 20 mg every 8 hours Current Visit: Yes Status: Acute Code(s): R10.9 - UNSPECIFIED ABDOMINAL PAIN SNOMED Code(s): 39083507 (2) History of Crohn's disease Narrative/Plan: The same patient with long-standing history of Crohn's since age of 9. After further review of document syndrome [facility] the patient underwent a total colectomy in 2012 which was his last sigmoidoscopy showing stenosis Crohn's in the sigmoid colon with ulcerations. He underwent a revision in 2019 with stomal hernia repair. He has not been following with any cinder pitman in her last 2-3 years. Patient only has approximately 3 inches of the rectum left and Pouch. Recommend outpatient follow-up with his previous surgeon and cinder pitman. Current Visit: Yes Status: Acute Code(s): Z87.19 - PERSONAL HISTORY OF OTHER DISEASES OF THE DIGESTIVE SYSTEM SNOMED Code(s): 191016576336552 Plan: 1. Continue symptomatic and supportive care 2. Advance to low fiber diet 3. Will begin oral prednisone in the morning 4. No plans on endoscopic evaluation 5. Recommend patient follow up with his previous cinder pitman and have ileoscopy performed as well as management of his Crohn's disease. Thank you for this consultation, we will continue to follow. Dr. Bouchra Hale I agree with the dictator's note, documented as a scribe by Shaniqua Brand.
--- NOTE | 2021-12-09 16:05 | P.PN ---
Subjective Progress Note Date: 12/09/21 This is a 41-year-old gentleman with abdominal pain with past medical history of Crohn's disease with ostomy, maintained on stulera-recent dose, he reports last week, mesalamine and steroids. CT abdomen /pelvis reporting no acute abnormality of the abdomen and pelvis. Ileostomy noted. No bowel obstruction. No adverse change. Maintained on IV fluid hydration, oral steroids and clear liquid diet. Evaluated by GI with recommendations noted and appreciated. Denies any chest pain, palpitations or shortness of breath. Denies any lightheadedness or dizziness or focal deficits. Echo pending. Afebrile, normal WBC. Tolerating intake of 50-75% clear liquid diet, with no nausea or vomiting. Reports minimal ostomy output .Renal function stable. 12/09/2021 maintained on IV fluids, IV steroids. Reports abdominal pain unchanged, left upper and lower quadrants. Afebrile, WBC 10.45, ESR decreased t o 36. Consuming 50% of breakfast, complaining of mild nausea, no emesis .hemoglobin and renal function stable. Objective - Vital Signs Vital signs: Vital Signs Temp 98.1 F 12/09/21 14:08 Pulse 79 12/09/21 14:08 Resp 16 12/09/21 14:08 BP 134/82 12/09/21 14:08 Pulse Ox 99 12/09/21 14:08 Intake & Output 12/08/21 12/09/21 12/09/21 18:59 06:59 18:59 Intake Total 946 240 Balance 946 240 Intake: Oral 946 240 Other: Voiding Method Toilet Toilet Toilet # Voids 4 - Exam GENERAL: Alert and oriented x3, sitting up in bed, NAD, HEENT: Pupils are round and equally reacting to light. EOMI. No scleral icterus. No conjunctival pallor. Normocephalic, atraumatic. Oral mucosa moist. Neck supple, no JVD. CARDIOVASCULAR: S1 and S2 present. No murmurs, rubs, or gallops. PULMONARY: Chest is clear to auscultation, no wheezing or crackles. ABDOMEN: Soft, nondistended, normoactive bowel sounds. Diffuse tenderness , greatest in the left upper and lower quadrants .no guarding, no rigidity.ileostomy with small amount loose brown stool, nonbloody. EXTREMITIES: No cyanosis, clubbing, or pedal edema. NEUROLOGICAL: Gross neurological examination did not reveal any focal deficits. SKIN: Warm and dry, No rashes - Labs CBC & Chem 7: 12/09/21 05:37 12/09/21 05:37 Labs: Abnormal Lab Results - Last 24 Hours (Table) 12/09/21 12/09/21 Range/Units 05:37 05:37 WBC 10.45 H (4.50-10.00) X 10*3/uL RBC 3.94 L (4.40-5.60) X 10*6/uL Hgb 12.4 L (13.0-17.0) g/dL Hct 37.3 L (39.6-50.0) % MPV 9.1 L (9.5-12.2) fL Neutrophils # 9.62 H (1.80-7.70) X 10*3/uL Lymphocytes # 0.50 L (0.90-5.00) X 10*3/uL Eosinophils # 0 L (0.04-0.35) X 10*3/uL BUN 8.3 L (9.0-27.0) mg/dL BUN/Creatinine Ratio 9.22 L (12.00-20.00) Ratio Glucose 123 H (70-110) mg/dL Assessment and Plan Assessment: Acute on chronic Abdominal pain , possibly Crohn's exacerbation ,in a patient with history of Crohn's disease, ultrasound pending History of Crohn's disease, ostomy Near syncope suspect related to dehydration, cardiology following Acute renal failure, resolved with IV fluid hydration Gastroesophageal reflux disease History of pancreatitis Hypertension Osteoarthritis Rheumatoid arthritis Anxiety Depression Ongoing nicotine dependence Daily Marijuana use Plan: Continue on current medication regime ,monitoring and symptomatic treatment. Maintain gentle IV fluid hydration. Diet advancement as per GI .Steroids being converted to oral tomorrow. Discharge planning in progress for possibly tomorrow ,pending GI final DC recommendations and clearance The impression and plan of care has been dictated as directed. : I performed a history and examination of this patient, discussed the same with the dictator. I agree with the dictator's note ,documented as a scribe. Any additional findings or plans will be noted.
[2021-12-10] MEDS: methylPREDNISolone SOD SUCCI 40 MG/ML 1 ML VIAL IV SCH (00:01)
[2021-12-10] MEDS: oxyCODONE-APAP 5-325MG 1 EACH TAB PO PRN ×3 (01:26→18:29)
[2021-12-10] MEDS: HYDROmorphone 0.5 MG/0.5 ML SYRINGE IVP PRN ×7 (03:02→23:13)
[2021-12-10] MEDS: PANTOPRAZOLE 40 MG TABLET PO SCH (07:56)
[2021-12-10] MEDS: amLODIPine 10 MG TAB PO SCH (07:56)
[2021-12-10] MEDS: busPIRone HCl 10 MG TAB PO SCH ×2 (07:56→21:49)
[2021-12-10] MEDS: predniSONE 20 MG TAB PO SCH (07:56)
[2021-12-10] MEDS: buPROPion XL 150 MG TAB.ER.24H PO SCH (07:56)
[2021-12-10] MEDS: ENOXAPARIN 40 MG/0.4 ML SYRINGE SQ SCH (07:56)
--- NOTE | 2021-12-10 08:19 | ECHOF ---
Referral Reason:LV function MEASUREMENTS -------- HEIGHT: 175.3 cm WEIGHT: 69.4 kg BP: 141/91 IVSd: 1.1 cm (0.6 - 1.1) LVIDd: 5.4 cm (3.9 - 5.3) LVPWd: 1.1 cm (0.6 - 1.1) EDV(Teich): 143 ml IVSs: 1.5 cm LVIDs: 3.6 cm LVPWs: 1.5 cm %IVS Thck: 45 % ESV(Teich): 55 ml EF(Teich): 61 % %FS: 33 % SV(Teich): 88 ml LA Diam: 2.9 cm (2.7 - 3.8) RVIDd: 2.7 cm (< 3.3) HR_2Ch_Q: 67 bpm HR_4Ch_Q: 63 bpm LVVED_2Ch_Q: 116 ml LVVED_4Ch_Q: 126 ml LVVED_BiP_Q: 120 ml LVVES_2Ch_Q: 62 ml LVVES_4Ch_Q: 66 ml LVVES_BiP_Q: 62 ml LVEF_2Ch_Q: 47 % LVEF_4Ch_Q: 48 % LVEF_BiP_Q: 48 % LVSV_2Ch_Q: 54 ml LVSV_4Ch_Q: 61 ml LVSV_BiP_Q: 58 ml LVCO_2Ch_Q: 3.6 l/min LVCO_4Ch_Q: 3.8 l/min LVCO_BiP_Q: 3.8 l/min LVLs_2Ch_Q: 7.8 cm LVLs_4Ch_Q: 6.9 cm LVLd_2Ch_Q: 9.2 cm LVLd_4Ch_Q: 8.2 cm Ao Diam: 3.4 cm (2.0 - 3.7) AV Cusp: 2.1 cm (1.5 - 2.6) EPSS: 1.3 cm MV E Albert: 0.90 m/s MV DecT: 321 ms MV Dec [place]: 2.8 m/s MV A Albert: 0.66 m/s MV E/A Ratio: 1.37 MV PHT: 93 ms AV Vmax: 1.48 m/s AV maxP.79 mmHg TR Vmax: 2.30 m/s TR maxP.10 mmHg RAP: 5.00 mmHg RVSP: 26.10 mmHg MV EF SLOPE: 112.84 mm/s (70 - 150) MV EXCURSION: 13.36 mm (> 18.000) FINDINGS -------- Sinus rhythm. This was a technically good study. The left ventricular size is normal. There is borderline concentric left ventricular hypertrophy. Overall left ventricular systolic function is mildly impaired with, an EF between 45 - 50 %. The right ventricle is normal in size. The left atrium is normal in size. The right atrium is normal in size. Interatrial and interventricular septum intact. Mild mitral regurgitation is present. Mild tricuspid regurgitation present. Right ventricular systolic pressure is normal at < 35 mmHg. Trace/mild (physiologic) pulmonic regurgitation. The aortic root size is normal. Normal inferior vena cava with normal inspiratory collapse consistent with estimated right atrial pre ssure of 5 mmHg. There is no pericardial effusion. CONCLUSIONS -------- 1. The left ventricular size is normal. 2. There is borderline concentric left ventricular hypertrophy. 3. Overall left ventricular systolic function is mildly impaired with, an EF between 45 - 50 %. 4. Mild mitral regurgitation is present. 5. Mild tricuspid regurgitation present. 6. Trace/mild (physiologic) pulmonic regurgitation. 7. There is no pericardial effusion. ACCOUNT EXECUTIVE SALES REPRESENTATIVE: Lenka Kelly [facility]
[2021-12-10] MEDS: ONDANSETRON 4 MG/2 ML VIAL IVP PRN (08:45)
[2021-12-10] MEDS: SODIUM CHLORIDE 0.9% 1,000 ML IV SCH ×2 (08:46→23:15)
--- NOTE | 2021-12-10 09:07 | P.PN ---
Subjective Progress Note Date: 12/10/21 Principal diagnosis: Abdominal pain, Crohn's disease 41-year-old male with no long-standing history of Crohn's disease diagnosed at the age of 9. He is status post total colectomy with revision and repair of stomal hernia in 2019 seen in follow-up for complaints of abdominal pain/Crohn's flareup. States he has his normal morning abdominal pain however it improves throughout the day. Some mild nausea. He was started on a low fiber diet which he is tolerating well. He is emptying his ostomy bag once a day. There is no blood in his stool. He has been afebrile. Objective - Vital Signs Vital signs: Vital Signs Temp 97.7 F 12/10/21 07:13 Pulse 54 L 12/10/21 07:13 Resp 16 12/10/21 07:13 BP 152/92 12/10/21 07:13 Pulse Ox 97 12/10/21 07:13 Intake & Output 12/09/21 12/10/21 12/10/21 18:59 06:59 18:59 Intake Total 480 480 Balance 480 480 Intake: Oral 480 480 Other: Voiding Method Toilet Toilet # Voids 3 # Bowel Movements 1 - Exam General appearance: The patient is alert, oriented, appears in no acute distress. HET: Head is normocephalic and atraumatic. Conjunctiva pink. Sclera anicteric. Neck: Supple without lymphadenopathy. Abdomen: Soft, tenderness in the left lower quadrant, nondistended with bowel sounds. Ileostomy right side of abdomen with loose brown output. No guarding or rigidity. Extremities: Normal skin color and turgor. No pedal edema Skin: No rashes, no jaundice Neurological: No focal deficits. Alert and oriented x 3. - Labs CBC & Chem 7: 12/09/21 05:37 12/09/21 05:37 Labs: Abnormal Lab Results - Last 24 Hours (Table) 12/09/21 Range/Units 05:37 BUN 8.3 L (9.0-27.0) mg/dL BUN/Creatinine Ratio 9.22 L (12.00-20.00) Ratio Glucose 123 H (70-110) mg/dL Assessment and Plan (1) Abdominal pain Narrative/Plan: 41-year-old with a history of Crohn's disease diagnosed at the age of 9 with had to undergo ostomy creation he believes in 2013. For which he is unsure why. He has been maintained on still vera, mesalamine and steroids for which she states he's been on 40 mg taper dose. He came in for diffuse abdominal pain, with multiple other symptoms such as lightheadedness, headache, syncope, fatigue and weakness. States he has not been following with gastroenterology or his colorectal specialist in some time. He did present with an elevated sed rate, however CRP was normal. He does have a history of pancreatitis although he is unsure of etiology in the past and denies any history of alcohol abuse. Will or elvis ultrasound of abdomen and Solu-Medrol 20 mg every 8 hours Current Visit: Yes Status: Acute Code(s): R10.9 - UNSPECIFIED ABDOMINAL PAIN SNOMED Code(s): 31461956 (2) History of Crohn's disease Narrative/Plan: The same patient with long-standing history of Crohn's since age of 9. After further review of document syndrome [facility] the patient underwent a total colectomy in 2012 which was his last sigmoidoscopy showing stenosis Crohn's in the sigmoid colon with ulcerations. He underwent a revision in 2019 with stomal hernia repair. He has not been following with any lion tamer in her last 2-3 years. Patient only has approximately 3 inches of the rectum left and Pouch. Recommend outpatient follow-up with his previous surgeon and lion tamer. Current Visit: Yes Status: Acute Code(s): Z87.19 - PERSONAL HISTORY OF OTHER DISEASES OF THE DIGESTIVE SYSTEM SNOMED Code(s): 027498777714152 Plan: 1. Continue symptomatic and supportive care 2. Advance to low fiber diet 3. Prednisone 40 mg orally started. Patient will be tapered by 5 mg a week. Prescription sent. 4. No plans on endoscopic evaluation 5. Recommend patient follow up with his previous lion tamer and have ileoscopy performed as well as management of his Crohn's disease. Thank you for this consultation, the patient is cleared by gastroenterology for discharge. Dr. Bouchra Hale I agree with the dictator's note, documented as a scribe by Shaniqua Brand.
--- NOTE | 2021-12-10 15:27 | P.DS ---
Providers Date of admission: 12/08/21 08:07 Expected date of discharge: 12/10/21 Attending physician: Emile Rodríguez MD Consults: 12/07/21 11:16 Consult Physician Routine Consulting Provider: Khloe Hale Consult Reason/Comments: abd pain , h/o crohns Do you want consulting provider notified?: Yes Primary care physician: Emile Rodríguez MD Hospital Course: Final Diagnoses: Acute on chronic Abdominal pain , possibly Crohn's exacerbation ,in a patient with history of Crohn's disease, ultrasound pending History of Crohn's disease, ostomy Near syncope suspect related to dehydration, cardiology following Acute renal failure, resolved with IV fluid hydration Gastroesophageal reflux disease History of pancreatitis Hypertension Osteoarthritis Rheumatoid arthritis Anxiety Depression Ongoing nicotine dependence Daily Marijuana use Hospital course:This is a 41-year-old gentleman with abdominal pain with past medical history of Crohn's disease with ostomy, maintained on stulera-recent dose, he reports last week, mesalamine and steroids. CT abdomen /pelvis reporting no acute abnormality of the abdomen and pelvis. Ileostomy noted. No bowel obstruction. No adverse change. Maintained on IV fluid hydration, oral steroids and clear liquid diet. Evaluated by GI with recommendations noted and appreciated. Denies any chest pain, palpitations or shortness of breath. Denies any lightheadedness or dizziness or focal deficits. Echo pending. Afebrile, normal WBC. Tolerating intake of 50-75% clear liquid diet, with no nausea or vomiting. Reports minimal ostomy output .Renal function stable. 12/09/2021 maintained on IV fluids, IV steroids. Reports abdominal pain unchanged, left upper and lower quadrants. Afebrile, WBC 10.45, ESR decreased to 36. Consuming 50% of breakfast, complaining of mild nausea, no emesis .hemoglobin and renal function stable. Significant clinical improvement. Diet advanced to low fiber, consuming toasted scrambled egg sandwich this morning. Minimal nausea ,no vomiting. Positive ostomy output, nonbloody. Afebrile. Reports ongoing abdominal pain that usually improves later in the day. Steroids converted to oral. Cleared by GI for discharge, recommending patient follow-up with his previous surgeon and senior account manager outpatient. Also outpatient ileoscopy recommended-discussed with patient, who verbalizes he can arrange his appointments. Patient will be discharged home later today pending improvement in abdominal discomfort. Denies chest pain, palpitations or shortness of breath. Denies lightheadedness, dizziness or focal deficits. Ambulating, tolerating exertion well. - Exam GENERAL: Alert and oriented x3, sitting up in bed, NAD, HEENT: Pupils are round and equally reacting to light. No scleral icterus. No conjunctival pallor. Normocephalic, atraumatic. Oral mucosa moist. Neck supple, no JVD. CARDIOVASCULAR: S1 and S2 present. No murmurs, rubs, or gallops. PULMONARY: Chest is clear to auscultation, no wheezing or crackles. ABDOMEN: Soft, nondistended, normoactive bowel sounds. Diffuse Left lower quadrant tenderness. no guarding, no rigidity.ileostomy with loose brown stool, nonbloody. EXTREMITIES: No cyanosis, clubbing, or pedal edema. NEUROLOGICAL: Gross neurological examination did not reveal any focal deficits. SKIN: Warm and dry, No rashes The impression and plan of care has been dictated as directed. : I performed a history and examination of this patient, discussed the same with the dictator. I agree with the dictator's note ,documented as a scribe. Any additional findings or plans will be noted. Patient Condition at Discharge: Stable Plan - Discharge Summary New Discharge Prescriptions: New predniSONE 10 mg PO DAILY #126 tab Continue oxyCODONE HCL/ACETAMINOPHEN [Percocet 10-325 mg] 1 tab PO TID PRN PRN Reason: Pain Omeprazole [PriLOSEC] 20 mg PO DAILY busPIRone HCl [Buspar] 10 mg PO BID Metoclopramide [Reglan] 10 mg PO Q6H PRN PRN Reason: Nausea Escitalopram [Lexapro] 10 mg PO DAILY Ustekinumab [Stelara] 90 mg SQ Q60D Albuterol Sulfate [Ventolin HFA] 2 puff INHALATION RT-Q4H PRN PRN Reason: Shortness Of Breath buPROPion XL [Wellbutrin XL] 150 mg PO DAILY amLODIPine [Norvasc] 10 mg PO DAILY Hydrochlorothiazide [hydroCHLOROthiazide] 12.5 mg PO DAILY ondansetron HCL [Zofran] 8 mg PO TID PRN PRN Reason: Nausea QUEtiapine [SEROquel] 100 - 200 mg PO HS PRN PRN Reason: SLEEP Dicyclomine [Bentyl] 20 mg PO AC-BRKFST Discontinued predniSONE [Deltasone] 40 mg PO DAILY Discharge Medication List oxyCODONE HCL/ACETAMINOPHEN [Percocet 10-325 mg] 1 tab PO TID PRN 12/11/14 [History] Albuterol Sulfate [Ventolin HFA] 2 puff INHALATION RT-Q4H PRN 12/19/20 [History] Omeprazole [PriLOSEC] 20 mg PO DAILY 12/19/20 [History] amLODIPine [Norvasc] 10 mg PO DAILY 12/19/20 [History] buPROPion XL [Wellbutrin XL] 150 mg PO DAILY 12/19/20 [History] busPIRone HCl [Buspar] 10 mg PO BID 12/19/20 [History] Hydrochlorothiazide [hydroCHLOROthiazide] 12.5 mg PO DAILY 04/09/21 [History] Dicyclomine [Bentyl] 20 mg PO AC-BRKFST 12/06/21 [History] Escitalopram [Lexapro] 10 mg PO DAILY 12/06/21 [History] Metoclopramide [Reglan] 10 mg PO Q6H PRN 12/06/21 [History] QUEtiapine [SEROquel] 100 - 200 mg PO HS PRN 12/06/21 [History] Ustekinumab [Stelara] 90 mg SQ Q60D 12/06/21 [History] ondansetron HCL [Zofran] 8 mg PO TID PRN 12/06/21 [History] predniSONE 10 mg PO DAILY #126 tab 12/10/21 [Rx] Follow up Appointment(s)/Referral(s): Emile Rodríguez MD [Primary Care Provider] - 12/12/21 11:30 am (Appontment at the [facility]
[2021-12-10] MEDS: METOCLOPRAMIDE 10 MG TAB PO PRN (16:38)
[2021-12-11] MEDS: ONDANSETRON 4 MG/2 ML VIAL IVP PRN ×2 (00:56→08:36)
[2021-12-11] MEDS: HYDROmorphone 0.5 MG/0.5 ML SYRINGE IVP PRN (02:51)
[2021-12-11 07:47] VITALS: BP 123/69; PULSE 64; RESP 18; TEMP 98.3
[2021-12-11] MEDS: ENOXAPARIN 40 MG/0.4 ML SYRINGE SQ SCH (08:25)
[2021-12-11] MEDS: amLODIPine 10 MG TAB PO SCH (08:25)
[2021-12-11] MEDS: predniSONE 20 MG TAB PO SCH (08:25)
[2021-12-11] MEDS: busPIRone HCl 10 MG TAB PO SCH (08:25)
[2021-12-11] MEDS: PANTOPRAZOLE 40 MG TABLET PO SCH (08:25)
[2021-12-11] MEDS: buPROPion XL 150 MG TAB.ER.24H PO SCH (08:25)
[2021-12-11] MEDS: oxyCODONE-APAP 5-325MG 1 EACH TAB PO PRN (08:42)
[2021-12-11] MEDS ORDERED: oxyCODONE-APAP 5-325MG 1 EACH TAB PO STA (10:21)
== END 2021-12-11 10:42 | disposition home or self-care (01) | DRG 386 ==
LOC: EC 15:37 → 6NMEDSUR 19:24 → OBSVTOIN 12-08 08:07
PROVIDERS: ADMIT Family Medicine; ATTEND Family Medicine
DX: K50.90 Crohn's disease, unspecified, without complications (principal); N17.9 Acute kidney failure, unspecified; J44.9 Chronic obstructive pulmonary disease, unspecified; M06.9 Rheumatoid arthritis, unspecified; Z93.3 Colostomy status; Z20.822 Contact with and (suspected) exposure to COVID-19; E86.0 Dehydration; K21.9 Gastro-esophageal reflux disease without esophagitis; I10 Essential (primary) hypertension; G89.29 Other chronic pain; D64.9 Anemia, unspecified; F32.A Depression, unspecified; F41.9 Anxiety disorder, unspecified; R55 Syncope and collapse; H92.02 Otalgia, left ear; M25.572 Pain in left ankle and joints of left foot; M25.571 Pain in right ankle and joints of right foot; M25.562 Pain in left knee; M25.561 Pain in right knee; M54.9 Dorsalgia, unspecified; M19.90 Unspecified osteoarthritis, unspecified site; I08.1 Rheumatic disorders of both mitral and tricuspid valves; G56.00 Carpal tunnel syndrome, unspecified upper limb; E66.9 Obesity, unspecified; Z68.33 Body mass index [BMI] 33.0-33.9, adult; R74.8 Abnormal levels of other serum enzymes; F17.210 Nicotine dependence, cigarettes, uncomplicated; Z71.6 Tobacco abuse counseling; Z79.52 Long term (current) use of systemic steroids; Z79.899 Other long term (current) drug therapy; Z86.19 Personal history of other infectious and parasitic diseases; Z87.19 Personal history of other diseases of the digestive system; Z90.49 Acquired absence of other specified parts of digestive tract; Z98.890 Other specified postprocedural states; Z88.6 Allergy status to analgesic agent; Z88.8 Allergy status to other drugs, medicaments and biological substances; Z82.49 Family history of ischemic heart disease and other diseases of the circulatory system; Z82.3 Family history of stroke
CPT/HCPCS: 36415; 74022; 74176; 76700; 80053; 81003; 82150; 83605; 83690; 83735; 84100; 84484; 85025; 85652; 86140; 87635; 93005; 93306; 96374; 96375; 99285

== ENCOUNTER 2022-01-11 06:25 | Emergency (ER) | payer MEDICARE, OTHER ==
[2022-01-11 06:37] VITALS: BP 152/106; PULSE 83; RESP 18; TEMP 98
--- NOTE | 2022-01-11 07:14 | ED ---
Upper Extremity HPI - General Chief Complaint: Extremity Injury, Upper Stated Complaint: R wrist pain Time Seen by Provider: 01/11/22 06:26 Source: patient, EMS Mode of arrival: EMS Limitations: no limitations - History of Present Illness Initial Comments: 41-year-old male presents emergency Department with chief complaint of right wrist pain. Patient states it has been bothersome For Last 3-4 Days. He States he has been moving furniture last few days. Patient states he is [id number]. He has increased pain with wrist movement. No parest hesias. No falls no traumatic injury. Patient denies any chest pain shortness breath no other complaints. - Related Data Home Medications Medication Instructions Recorded Confirmed oxyCODONE HCL/ACETAMINOPHEN 1 tab PO TID PRN 12/11/14 12/06/21 [Percocet 10-325 mg] Albuterol Sulfate [Ventolin HFA] 2 puff INHALATION RT-Q4H PRN 12/19/20 12/06/21 Omeprazole [PriLOSEC] 20 mg PO DAILY 12/19/20 12/06/21 amLODIPine [Norvasc] 10 mg PO DAILY 12/19/20 12/06/21 buPROPion XL [Wellbutrin XL] 150 mg PO DAILY 12/19/20 12/06/21 busPIRone HCl [Buspar] 10 mg PO BID 12/19/20 12/06/21 Hydrochlorothiazide 12.5 mg PO DAILY 04/09/21 12/06/21 [hydroCHLOROthiazide] Dicyclomine [Bentyl] 20 mg PO AC-BRKFST 12/06/21 12/06/21 Escitalopram [Lexapro] 10 mg PO DAILY 12/06/21 12/06/21 Metoclopramide [Reglan] 10 mg PO Q6H PRN 12/06/21 12/06/21 QUEtiapine [SEROquel] 100 - 200 mg PO HS PRN 12/06/21 12/06/21 Ustekinumab [Stelara] 90 mg SQ Q60D 12/06/21 12/06/21 ondansetron HCL [Zofran] 8 mg PO TID PRN 12/06/21 12/06/21 Previous Rx's Medication Instructions Recorded predniSONE 10 mg PO DAILY #126 tab 03/16/22 predniSONE 50 mg PO DAILY #5 tab 04/17/22 Allergies Allergy/AdvReac Type Severity Reaction Status Date / Time infliximab [From Remicade] Allergy Anaphylaxis Verified 01/11/22 06:37 lisinopril Allergy Anaphylaxis Verified 01/11/22 06:37 lactose AdvReac Nausea & Verified 01/11/22 06:37 Vomiting & Diarrhea NSAIDS (Non-Steroidal AdvReac Unknown Verified 01/11/22 06:37 Anti-Inflamma Review of Systems ROS Statement: Those systems with pertinent positive or pertinent negative responses have been documented in the HPI. ROS Other: All systems not noted in ROS Statement are negative. Past Medical History Past Medical History: GERD/Reflux, Hypertension, Osteoarthritis (OA), Rheumatoid Arthritis (RA) Additional Past Medical History / Comment(s): herniated discs, carpal tunnel, Crohns WITH OSTOMY PLACEMENT DECEMBER 15 2012, pancreatitis History of Any Multi-Drug Resistant Organisms: None Reported, C-DIFF Date of last positivie culture/infection: unknown MDRO Source:: stool Past Surgical History: Bowel Resection Additional Past Surgical History / Comment(s): OSTOMY PLACEMENT DECEMBER 15 2012 Past Anesthesia/Blood Transfusion Reactions: No Reported Reaction Additional Past Anesthesia/Blood Transfusion Reaction / Comment(s): DELIRIUM Past Psychological History: Anxiety, Depression Smoking Status: Current some day smoker Past Alcohol Use History: None Reported Past Drug Use History: Marijuana - Past Family History Mother Family Medical History: Hypertension Father Family Medical History: CVA/TIA, Hypertension General Exam Limitations: no limitations General appearance: alert, in no apparent distress Head exam: Present: atraumatic, normocephalic, normal inspection Respiratory exam: Present: normal lung sounds bilaterally. Absent: respiratory distress, wheezes, rales, rhonchi, stridor Cardiovascular Exam: Present: regular rate, normal rhythm, normal heart sounds. Absent: systolic murmur, diastolic murmur, rubs, gallop, clicks Extremities exam: Present: other (Right wrist there is tenderness of the brachioradialis region, neurovascular intact no erythema no ecchymotic areas on no proximal forearm tenderness Refill less than 2 seconds.) Course Vital Signs 01/11/22 06:32 Temperature 98.0 F Pulse Rate 83 Respiratory 18 Rate Blood Pressure 152/106 O2 Sat by Pulse 99 Oximetry Medical Decision Making - Medical Decision Making X-rays negative for acute fracture. Patient symptoms consistent with tendinitis. Patient started on steroids as he cannot take anti-inflammatories. Patient discharged in stable condition return parameters were discussed. Disposition Clinical Impression: Right wrist tendinitis Disposition: HOME SELF-CARE Condition: Stable Instructions (If sedation given, give patient instructions): Wrist Injury (ED), Tendinitis (ED) Additional Instructions: Please return to the Emergency Department if symptoms worsen or any other concerns. Prescriptions: predniSONE 50 mg PO DAILY #5 tab Is patient prescribed a controlled substance at d/c from ED?: No Referrals: Emile Rodríguez MD [Primary Care Provider] - 1-2 days Time of Disposition: 07:23
--- NOTE | 2022-01-11 07:20 | XR ---
EXAMINATION TYPE: XR forearm RT DATE OF EXAM: 01/11/2022 CLINICAL HISTORY: pain TECHNIQUE: Frontal and lateral images of the right forearm are obtained. COMPARISON: None. FINDINGS: There is no acute fracture/dislocation evident. The joint spaces appear within normal limi ts. The overlying soft tissue appears unremarkable. IMPRESSION: There is no acute fracture or dislocation. ICD 10 NO FRACTURE, INITIAL EVALUATION
== END 2022-01-11 07:32 | disposition home or self-care (01) ==
LOC: EC 06:25
DX: M77.8 Other enthesopathies, not elsewhere classified (principal); K21.9 Gastro-esophageal reflux disease without esophagitis; I10 Essential (primary) hypertension; M06.9 Rheumatoid arthritis, unspecified; F41.9 Anxiety disorder, unspecified; F32.A Depression, unspecified; F17.200 Nicotine dependence, unspecified, uncomplicated; F12.90 Cannabis use, unspecified, uncomplicated
CPT/HCPCS: 99283

== ENCOUNTER 2022-08-19 09:38 | Emergency (ER) | payer MEDICARE, OTHER ==
[2022-08-19 09:42] VITALS: BP 147/101; PULSE 72; RESP 18; TEMP 98.5
--- NOTE | 2022-08-19 10:06 | ED ---
General Adult HPI - General Chief complaint: Recheck/Abnormal Lab/Rx Stated complaint: needs ileostomy supplies Time Seen by Provider: 08/19/22 09:43 Source: patient, RN notes reviewed Mode of arrival: ambulatory Limitations: no limitations - History of Present Illness Initial comments: 42-year-old male presents emergency Department stating that his ileostomy is leaking. Patient states that his physician made a switch supply companies and states that he will not receive his supplies until Wednesday states he has no supplies to replace his the ostomy bag. Patient states he is leaking he offers no other associated complaints. - Related Data Home Medications Medication Instructions Recorded Confirmed oxyCODONE HCL/ACETAMINOPHEN 1 tab PO TID PRN 12/11/14 12/06/21 [Percocet 10-325 mg] Albuterol Sulfate [Ventolin HFA] 2 puff INHALATION RT-Q4H PRN 12/19/20 12/06/21 Omeprazole [PriLOSEC] 20 mg PO DAILY 12/19/20 12/06/21 amLODIPine [Norvasc] 10 mg PO DAILY 12/19/20 12/06/21 buPROPion XL [Wellbutrin XL] 150 mg PO DAILY 12/19/20 12/06/21 busPIRone HCl [Buspar] 10 mg PO BID 12/19/20 12/06/21 hydroCHLOROthiazide 12.5 mg PO DAILY 04/09/21 12/06/21 Dicyclomine [Bentyl] 20 mg PO AC-BRKFST 12/06/21 12/06/21 Escitalopram [Lexapro] 10 mg PO DAILY 12/06/21 12/06/21 Metoclopramide [Reglan] 10 mg PO Q6H PRN 12/06/21 12/06/21 QUEtiapine [SEROquel] 100 - 200 mg PO HS PRN 12/06/21 12/06/21 Ustekinumab [Stelara] 90 mg SQ Q60D 12/06/21 12/06/21 ondansetron HCL [Zofran] 8 mg PO TID PRN 12/06/21 12/06/21 Previous Rx's Medication Instructions Recorded predniSONE 10 mg PO DAILY #126 tab 12/10/21 predniSONE 50 mg PO DAILY #5 tab 01/11/22 Allergies Allergy/AdvReac Type Severity Reaction Status Date / Time infliximab [From Remicade] Allergy Anaphylaxis Verified 01/11/22 06:37 lisinopril Allergy Anaphylaxis Verified 01/11/22 06:37 amlodipine AdvReac Swelling Verified 08/19/22 09:42 lactose AdvReac Nausea & Verified 01/11/22 06:37 Vomiting & Diarrhea NSAIDS (Non-Steroidal AdvReac Unknown Verified 01/11/22 06:37 Anti-Inflamma Review of Systems ROS Statement: Those systems with pertinent positive or pertinent negative responses have been documented in the HPI. ROS Other: All systems not noted in ROS Statement are negative. Past Medical History Past Medical History: GERD/Reflux, Hypertension, Osteoarthritis (OA), Rheumatoid Arthritis (RA) Additional Past Medical History / Comment(s): herniated discs, carpal tunnel, Crohns WITH OSTOMY PLACEMENT DECEMBER 15 2012, pancreatitis History of Any Multi-Drug Resistant Organisms: None Reported, C-DIFF Date of last positivie culture/infection: unknown MDRO Source:: stool Past Surgical History: Bowel Resection Additional Past Surgical History / Comment(s): OSTOMY PLACEMENT DECEMBER 15 2012 Past Anesthesia/Blood Transfusion Reactions: No Reported Reaction Additional Past Anesthesia/Blood Transfusion Reaction / Comment(s): DELIRIUM Past Psychological History: Anxiety, Depression Smoking Status: Current some day smoker Past Alcohol Use History: None Reported Past Drug Use History: Marijuana - Past Family History Mother Family Medical History: Hypertension Father Family Medical History: CVA/TIA, Hypertension General Exam Limitations: no limitations General appearance: alert, in no apparent distress Head exam: Present: atraumatic, normocephalic, normal inspection Respiratory exam: Present: normal lung sounds bilaterally. Absent: respiratory distress, wheezes, rales, rhonchi, stridor Cardiovascular Exam: Present: regular rate, normal rhythm, normal heart sounds. Absent: systolic murmur, diastolic murmur, rubs, gallop, clicks GI/Abdominal exam: Present: soft, normal bowel sounds, other (Ileostomy noted to be leaking). Absent: distended, tenderness, guarding, rebound, rigid Course Vital Signs 08/19/22 09:40 Temperature 98.5 F Pulse Rate 72 Respiratory 18 Rate Blood Pressure 147/101 O2 Sat by Pulse 92 L Oximetry Medical Decision Making - Medical Decision Making Supplies were provided patient will be discharged in stable condition return parameters were discussed. Disposition Clinical Impression: Ileostomy bag changed, Ileostomy dysfunction Disposition: HOME SELF-CARE Condition: Stable Additional Instructions: Please return to the Emergency Department if symptoms worsen or any other concerns. Is patient prescribed a controlled substance at d/c from ED?: No Referrals: Emile Rodríguez MD [Primary Care Provider] - 1-2 days Time of Disposition: 10:06
== END 2022-08-19 10:40 | disposition home or self-care (01) ==
LOC: EC 09:38
DX: Z43.2 Encounter for attention to ileostomy (principal); K21.9 Gastro-esophageal reflux disease without esophagitis; I10 Essential (primary) hypertension; F32.A Depression, unspecified; F41.9 Anxiety disorder, unspecified; F17.200 Nicotine dependence, unspecified, uncomplicated; Z88.6 Allergy status to analgesic agent; Z88.8 Allergy status to other drugs, medicaments and biological substances; Z88.9 Allergy status to unspecified drugs, medicaments and biological substances; Z91.011 Allergy to milk products; Z79.83 Long term (current) use of bisphosphonates; Z79.84 Long term (current) use of oral hypoglycemic drugs
CPT/HCPCS: 99282

== ENCOUNTER 2024-09-17 10:42 | Inpatient (IN) | payer MEDICARE, OTHER ==
--- NOTE | 2024-09-17 11:09 | ED ---
General Adult HPI - General Chief complaint: Abdominal Pain Stated complaint: Abd pain Time Seen by Provider: 09/17/24 11:00 Source: patient Mode of arrival: ambulatory Limitations: no limitations - History of Present Illness Initial comments: Dictation was produced using [employer] dictation software. please excuse any grammatical, word or spelling errors. Chief Complaint: 44-year-old male with extensive history of Crohn's disease presents with severe abdominal pain History of Present Illness: Patient is a 44-year-old male he has extensive history of Crohn's disease. Patient has an ostomy placed secondary to complications of Crohn's. States that over the last couple days she has had severe abdominal pain. Denies any fever. States the pain is all over mostly in the mid abdomen. Denies any fever, chills or night sweats. Patient states that his symptoms not controlled with his usual home medications. The ROS documented in this emergency department record has been reviewed and confirmed by me. Those systems with pertinent positive or negative responses have been documented in the HPI. All other systems are other negative and/or noncontributory. - Related Data Home Medications Medication Instructions Recorded Confirmed oxyCODONE HCL/ACETAMINOPHEN 1 tab PO TID PRN 12/11/14 12/06/21 [Percocet 10-325 mg] Albuterol Sulfate [Ventolin HFA] 2 puff INHALATION RT-Q4H PRN 12/19/20 12/06/21 Omeprazole [PriLOSEC] 20 mg PO DAILY 12/19/20 12/06/21 amLODIPine [Norvasc] 10 mg PO DAILY 12/19/20 12/06/21 buPROPion XL [Wellbutrin XL] 150 mg PO DAILY 12/19/20 12/06/21 busPIRone HCl [Buspar] 10 mg PO BID 12/19/20 12/06/21 hydroCHLOROthiazide 12.5 mg PO DAILY 04/09/21 12/06/21 Dicyclomine [Bentyl] 20 mg PO AC-BRKFST 12/06/21 12/06/21 Escitalopram [Lexapro] 10 mg PO DAILY 12/06/21 12/06/21 Metoclopramide [Reglan] 10 mg PO Q6H PRN 12/06/21 12/06/21 QUEtiapine [SEROquel] 100 - 200 mg PO HS PRN 12/06/21 12/06/21 Ustekinumab [Stelara] 90 mg SQ Q60D 12/06/21 12/06/21 ondansetron HCL [Zofran] 8 mg PO TID PRN 12/06/21 12/06/21 Previous Rx's Medication Instructions Recorded predniSONE 10 mg PO DAILY #126 tab 12/10/21 predniSONE 50 mg PO DAILY #5 tab 01/11/22 Allergies Allergy/AdvReac Type Severity Reaction Status Date / Time infliximab [From Remicade] Allergy Anaphylaxis Verified 09/17/24 10:51 lisinopril Allergy Anaphylaxis Verified 09/17/24 10:51 amlodipine AdvReac Swelling Verified 09/17/24 10:51 lactose AdvReac Nausea & Verified 09/17/24 10:51 Vomiting & Diarrhea NSAIDS (Non-Steroidal AdvReac Unknown Verified 09/17/24 10:51 Anti-Inflamma Review of Systems ROS Statement: Those systems with pertinent positive or pertinent negative responses have been documented in the HPI. ROS Other: All systems not noted in ROS Statement are negative. Past Medical History Past Medical History: GERD/Reflux, Hypertension, Osteoarthritis (OA), Rheumatoid Arthritis (RA) Additional Past Medical History / Comment(s): herniated discs, carpal tunnel, Crohns WITH OSTOMY PLACEMENT DECEMBER 15 2012, pancreatitis History of Any Multi-Drug Resistant Organisms: None Reported, C-DIFF Date of last positivie culture/infection: unknown MDRO Source:: stool Past Surgical History: Bowel Resection Additional Past Surgical History / Comment(s): OSTOMY PLACEMENT DECEMBER 15 2012 Past Anesthesia/Blood Transfusion Reactions: No Reported Reaction Additional Past Anesthesia/Blood Transfusion Reaction / Comment(s): DELIRIUM Past Psychological History: Anxiety, Depression Smoking Status: Current some day smoker Past Alcohol Use History: None Reported Past Drug Use History: Marijuana - Past Family History Mother Family Medical History: Hypertension Father Family Medical History: CVA/TIA, Hypertension General Exam - General Exam Comments Initial Comments: PHYSICAL EXAM: General Impression: Alert and oriented x3, acute distress secondary to pain HEENT: Normocephalic atraumatic, extra-ocular movements intact, pupils equal and reactive to light bilaterally, mucous membranes moist. Cardiovascular: Heart regular rate and rhythm Chest: Able to complete full sentences, no retractions, no tachypnea Abdomen: abdomen soft, diffuse palpatory abdominal tenderness, non-distended, no organomegaly Musculoskeletal: Pulses present and equal in all extremities, no peripheral edema Motor: no focal deficits noted Neurological: CN II-XII grossly intact, no focal motor or sensory deficits noted Skin: Intact with no visualized rashes Psych: Normal affect and mood Limitations: no limitations Course Vital Signs 09/17/24 10:51 Temperature 98.3 F Pulse Rate 89 Respiratory 18 Rate Blood Pressure 138/91 O2 Sat by Pulse 98 Oximetry Medical Decision Making - Medical Decision Making Was pt. sent in by a medical professional or institution (, PA, ENGLISH [employer] SECOND LANGUAGE TEACHER, urgent care, hospital, or [place] health [place] facility...) When possible be specific @ -No Did you speak to anyone other than the patient for history (EMS, parent, family, police, friend...)? What history was obtained from this source @ -No Did you review nursing and triage notes (agree or disagree)? Why? @ -I reviewed and agree with nursing and triage notes Were old charts reviewed (outside hosp., previous admission, EMS record, old EKG, old radiological studies, urgent care reports/EKG's, [place] health care facility records)? Report findings @ -No old charts were reviewed Differential Diagnosis (chest pain, altered mental status, abdominal pain women, abdominal pain men, vaginal bleeding, musculoskeletal, weakness, fever, dyspnea, syncope, headache, dizziness, GI bleed, back pain, seizure, CVA, palpatations, mental health)? @ -Differential Abdominal Pain Men: Appendicitis, cholecystitis, diverticulosis, ischemic bowel, pancreatitis, hepatitis, UTI, gastroenteritis, AAA, incarcerated hernia, bowel obstruction, constipation, inflammatory bowel, hepatitis, peptic ulcer disease, splenic infarction, perforated viscus, testicular torsion, this is not meant to be an all-inclusive list EKG interpreted by me (3pts min.). @ -None done X-rays interpreted by me (1pt min.). @ -None done CT interpreted by me (1pt min.). @ -CT abdomen pelvis shows no acute processes. There is incidental finding of renal mass to the left kidney that patient was notified about that appears to be increasing in size U/S interpreted by me (1pt. min.). @ -None done What testing was considered but not performed or refused? (CT, X-rays, U/S, labs)? Why? @ -None What meds were considered but not given or refused? Why? @ -None Was smoking cessation discussed for >3mins.? @ -No Were there social determinants of health that impacted care today? How? (Homelessness, low income, unemployed, alcoholism, drug addiction, transportation, low edu. Level, literacy, decrease access to med. care, skilled nursing, rehab)? @ -No Was there de-escalation of care discussed even if they declined (Discuss DNR or withdrawal of care, Hospice)? DNR status @ -No What co-morbidities impacted this encounter? (DM, HTN, Smoking, COPD, CAD, Cancer, CVA, ARF, Chemo, Hep., AIDS, mental health diagnosis, sleep apnea, morbid obesity)? @ -History of Crohn's disease Was patient admitted / discharged? Hospital course, mention meds given and route, prescriptions, significant lab abnormalities, going to OR and other pertinent info. @ -44-year-old male with history of Crohn's disease presents to the emergency department for abdominal pain. Reportedly it severe however he does not appear to be in acute distress. Vital signs are stable. Laboratory evaluation obtained. No leukocytosis. Metabolic panel within acceptable limits. Imaging studies obtained showing no acute complicating processes of note however there is a enlarging left renal mass concerning for renal cell carcinoma versus cyst. Patient notified of this. Patient reevaluated bedside at 1:20 PM states that his symptoms are too severe to be discharged. He will be admitted to observation with consultation to general surgery. Case discussed with hospitalist for admission Did you discuss the management of the patient with other professionals (professionals i.e. , PA, ENGLISH AS A SECOND LANGUAGE TEACHER, lab, RT, psych nurse, director of social media marketing, grain farmworker, teacher, radiation safety officer, dependency case manager)? Give summary @ -See above Was critical care preformed (if so, how long)? @ -No Undiagnosed new problem with uncertain prognosis? @ -No Drug Therapy requiring intensive monitoring for toxicity (Heparin, Nitro, Insulin, Cardizem)? @ -No Were any procedures done? @ -No Diagnosis/symptom? Acute, or Chronic, or Acute on Chronic? Uncomplicated (without systemic symptoms) or Complicated (systemic symptoms)? @ -Intractable abdominal pain Side effects of treatment? @ -No Exacerbation, Progression, or Severe Exacerbation? @ -No Poses a threat to life or bodily function? How? (Chest pain, USA, GA, pneumonia, PE, COPD, DKA, ARF, appy, cholecystitis, CVA, Diverticulitis, Homicidal, Suicidal, threat to staff... and all critical care pts) @ -yes - Lab Data Result diagrams: 09/17/24 11:15 09/17/24 11:15 Lab Results 09/17/24 09/17/24 Range/Units 11:15 11:15 WBC 6.1 (3.8-10.6) k/uL RBC 3.94 L (4.30-5.90) m/uL Hgb 12.6 L (13.0-17.5) gm/dL Hct 37.5 L (39.0-53.0) % MCV 95.1 (80.0-100.0) fL MCH 32.1 (25.0-35.0) pg MCHC 33.7 (31.0-37.0) g/dL RDW 12.5 (11.5-15.5) % Plt Count 200 (150-450) k/uL MPV 7.2 Neutrophils % 67 % Lymphocytes % 23 % Monocytes % 4 % Eosinophils % 4 % Basophils % 1 % Neutrophils # 4.1 (1.3-7.7) k/uL Lymphocytes # 1.4 (1.0-4.8) k/uL Monocytes # 0.2 (0-1.0) k/uL Eosinophils # 0.2 (0-0.7) k/uL Basophils # 0.0 (0-0.2) k/uL Sodium 138 (137-145) mmol/L Potassium 4.0 (3.5-5.1) mmol/L Chloride 107 (98-107) mmol/L Carbon Dioxide 25 (22-30) mmol/L Anion Gap 6 mmol/L BUN 12 (9-20) mg/dL Creatinine 1.08 (0.66-1.25) mg/dL Est GFR (CKD-EPI)AfAm >90 (>60 ml/min/1.73 sqM) Est GFR (CKD-EPI)NonAf 82 (>60 ml/min/1.73 sqM) Glucose 107 H (74-99) mg/dL Calcium 10.2 (8.4-10.2) mg/dL Total Bilirubin 0.3 (0.2-1.3) mg/dL AST 24 (17-59) U/L ALT 10 (4-49) U/L Alkaline Phosphatase 42 (38-126) U/L Total Protein 6.4 (6.3-8.2) g/dL Albumin 4.1 (3.5-5.0) g/dL Lipase 213 (23-300) U/L Disposition Clinical Impression: Intractable abdominal pain Disposition: ADMITTED IP TO THIS [facility] Condition: Fair Referrals: Emile Rodríguez MD [Primary Care Provider] - 1-2 days Decision Time: 13:18
[2024-09-17] MEDS: HYDROmorphone 1 MG/ML 1 ML SYRINGE IVP STA (11:19)
[2024-09-17] MEDS: METOCLOPRAMIDE 5 MG/ML 2 ML VIAL IVP STA (11:21)
[2024-09-17 11:22] LABS: Basophils % (A) 1 %; Eosinophils # (A) 0.2 k/uL (0-0.7); Eosinophils % (A) 4 %; HCT 37.5 % (39.0-53.0); HGB 12.6 gm/dL (13.0-17.5); Lymphocytes # (A) 1.4 k/uL (1.0-4.8); Lymphocytes % (A) 23 %; MCH 32.1 pg (25.0-35.0); MCHC 33.7 g/dL (31.0-37.0); MCV 95.1 fL (80.0-100.0); Mean Platelet Volume 7.2; Monocytes # (A) 0.2 k/uL (0-1.0); Monocytes % (A) 4 %; Neutrophils # (A) 4.1 k/uL (1.3-7.7); Neutrophils % (A) 67 %; Platelet Count 200 k/uL (150-450); RBC 3.94 m/uL (4.30-5.90); RDW 12.5 % (11.5-15.5); WBC 6.1 k/uL (3.8-10.6)
[2024-09-17] MEDS: SODIUM CHLORIDE 0.9% 1,000 ML IV STA (11:24)
[2024-09-17 11:37] LABS: ALT 10 U/L (4-49); AST 24 U/L (17-59); African American GFR (CKD) >90 (>60 ml/min/1.73 sqM); Albumin 4.1 g/dL (3.5-5.0); Alkaline Phosphatase 42 U/L (38-126); Anion Gap 6 mmol/L; Blood Urea Nitrogen 12 mg/dL (9-20); Calcium 10.2 mg/dL (8.4-10.2); Carbon Dioxide 25 mmol/L (22-30); Chloride 107 mmol/L (98-107); Glucose 107 mg/dL (74-99); Lipase 213 U/L (23-300); Non-African American GFR(CKD) 82 (>60 ml/min/1.73 sqM); Sodium 138 mmol/L (137-145); Total Bilirubin 0.3 mg/dL (0.2-1.3); Total Protein 6.4 g/dL (6.3-8.2)
--- NOTE | 2024-09-17 12:19 | CT ---
EXAMINATION TYPE: CT abdomen pelvis w con DATE OF EXAM: 09/17/2024 11:46 AM COMPARISON: CT abdomen pelvis most recent from multiple dating back to 02/02/2021 CLINICAL INDICATION: Male, 44 years old with history of severe abdominal pain, hx of crohns; PAIN, NA USEA AND VOMITING X3 DAYS H/O CROHN'S TECHNIQUE: Axial CT abdomen pelvis w con;Sagittal and coronal reformats were created on a separate w orkstation. Contrast used:100 mL of Isovue 300 with IV Contrast, (none if empty) Oral contrast used: without Oral Contrast (none if empty) CT DLP: 521.6 mGycm, Automated exposure control for dose reduction was used. FINDINGS: LOWER CHEST: Unremarkable ABDOMEN LIVER: Unremarkable GALLBLADDER AND BILE DUCTS: Unremarkable. PANCREAS: Unremarkable. SPLEEN: Unremarkable. ADRENAL GLANDS: Unremarkable. KIDNEYS AND URETERS: No evidence of hydronephrosis or renal calculus. The ureters are unremarkable. Indeterminate left 66 Hounsfield unit cyst measuring 11 mm. PELVIS BLADDER: No evidence for wall thickening or mass given limitations of exam. REPRODUCTIVE: Unremarkable. ABDOMEN & PELVIS STOMACH AND BOWEL: No evidence of bowel obstruction. No bowel wall thickening identified. Right lower quadrant ileostomy without evidence for obstruction. No bowel wall thickening or lymphadenopathy sylvain ntified. PERITONEUM/RETROPERITONEUM: No evidence of pneumoperitoneum or free fluid. VASCULATURE: No evidence of aortic aneurysm. MUSCULOSKELETAL: No acute osseous abnormalities LYMPH NODES: No gross evidence for lymphadenopathy. SOFT TISSUE/ABDOMINAL WALL: 2 soft tissue lesions just superior to the pubic symphysis on both sides of the midline.r measuring 28 x 11 mm on the right and 24 x 10 mm on the left IMPRESSION: Right lower quadrant ileostomy without evidence for obstruction. Indeterminate left renal lesion further workup with renal mass protocol MRI recommended. Now measurin g 12 mm previously 4 mm on 03/04/2021. Findings could represent renal cell carcinoma versus enlarging p roteinaceous/hemorrhagic cyst soft tissue lesions just superior to the pubic symphysis on both sides of the midline.r measuring 28 x 11 mm on the right and 24 x 10 mm on the left. Correlate with physical exam. [facility], , 09/17/2024 12:17 PM
[2024-09-17] MEDS ORDERED: NALOXONE 0.4 MG/ML 1 ML VIAL IV PRN (13:14)
[2024-09-17] MEDS ORDERED: ACETAMINOPHEN TAB 325 MG TAB PO PRN (13:14)
[2024-09-17] MEDS: SODIUM CHLORIDE 0.9% 1,000 ML IV SCH (13:31)
[2024-09-17] MEDS: HYDROmorphone 0.5 MG/0.5 ML SYRINGE IVP PRN (14:26)
[2024-09-17] MEDS ORDERED: ALBUTEROL NEBULIZED 2.5 MG/3 ML INHALATION PRN (17:29)
--- NOTE | 2024-09-17 17:30 | P.HPIM ---
History of Present Illness H&P Date: 09/17/24 Chief Complaint: Intractable abdominal pain 44-year-old male, history of hypertension, osteoarthritis, rheumatoid arthritis, GERD, he has extensive history of Crohn's disease. Patient has an ostomy placed secondary to complications of Crohn's. States that over the last couple days she has had severe abdominal pain. Denies any fever. States the pain is all over mostly in the mid abdomen. Denies any fever, chills or night sweats. Patient states that his symptoms not controlled with his usual home medications. Blood work completed in ED reveals a WBC of 6.1, hemoglobin of 12.6 and platelet count of 200, sodium 138, potassium 4.0, BUNs/creatinine of 12/1.08 and blood glucose of 107, lipase of 213 CT of the abdomen and pelvis reveals right lower quadrant ileostomy without evidence for obstruction. Left renal lesion requiring need for workup with renal mass protocol MRI due to increase in size from 4 mm on 03/04/2021 up to 12 mm; findings could represent renal cell carcinoma versus enlarging protein echinacea/hemorrhagic cyst. Review of Systems REVIEW OF SYSTEMS: CONSTITUTIONAL: No fever, no malaise, no fatigue. HEENT: No recent visual problems or hearing problems. Denied any sore throat. CARDIOVASCULAR: No chest pain, orthopnea, PND, no palpitations, no syncope. PULMONARY: No shortness of breath, no cough, no hemoptysis. GASTROINTESTINAL: No diarrhea, no nausea, no vomiting, no abdominal pain. NEUROLOGICAL: No headaches, no weakness, no numbness. HEMATOLOGICAL: Denies any bleeding or petechiae. GENITOURINARY: Denies any burning micturition, frequency, or urgency. MUSCULOSKELETAL/RHEUMATOLOGICAL: Denies any joint pain, swelling, or any muscle pain. ENDOCRINE: Denies any polyuria or polydipsia. The rest of the 14-point review of systems is negative. Past Medical History Past Medical History: GERD/Reflux, Hypertension, Osteoarthritis (OA), Rheumatoid Arthritis (RA) Additional Past Medical History / Comment(s): herniated discs, carpal tunnel, Crohns WITH OSTOMY PLACEMENT DECEMBER 15 2012, pancreatitis History of Any Multi-Drug Resistant Organisms: None Reported, C-DIFF Date of last positivie culture/infection: unknown MDRO Source:: stool Past Surgical History: Bowel Resection Additional Past Surgical History / Comment(s): OSTOMY PLACEMENT DECEMBER 15 2012 Past Anesthesia/Blood Transfusion Reactions: No Reported Reaction Additional Past Anesthesia/Blood Transfusion Reaction / Comment(s): DELIRIUM Past Psychological History: Anxiety, Depression Smoking Status: Current some day smoker Past Alcohol Use History: None Reported Past Drug Use History: Marijuana - Past Family History Mother Family Medical History: Hypertension Father Family Medical History: CVA/TIA, Hypertension Medications and Allergies Home Medications Medication Instructions Recorded Confirmed Type oxyCODONE HCL/ACETAMINOPHEN 1 tab PO TID PRN 12/11/14 09/17/24 History [Percocet 10-325 mg] Albuterol Sulfate [Ventolin HFA] 2 puff INHALATION RT-Q4H PRN 12/19/20 09/17/24 History busPIRone HCl [Buspar] 10 mg PO BID 12/19/20 09/17/24 History Losartan-Hctz 50-12.5 mg [Hyzaar 1 tab PO DAILY 09/17/24 09/17/24 History 50-12.5] Omeprazole 40 mg PO DAILY 09/17/24 09/17/24 History Ondansetron Odt [Zofran Odt] 4 mg PO TID PRN 09/17/24 09/17/24 History Allergies Allergy/AdvReac Type Severity Reaction Status Date / Time infliximab [From Remicade] Allergy Anaphylaxis Verified 09/17/24 13:22 lisinopril Allergy Anaphylaxis Verified 09/17/24 13:22 amlodipine AdvReac Swelling Verified 09/17/24 13:22 lactose AdvReac Nausea & Verified 09/17/24 13:22 Vomiting & Diarrhea NSAIDS (Non-Steroidal AdvReac Unknown Verified 09/17/24 13:22 Anti-Inflamma Physical Exam Vitals: Vital Signs Temp Pulse Resp BP Pulse Ox 09/17/24 10:51 98.3 F 89 18 138/91 98 Intake and Output 09/16/24 09/17/24 09/17/24 22:59 06:59 14:59 Other: Weight 55.338 kg General Impression: Alert and oriented x3, acute distress secondary to pain HEENT: Normocephalic atraumatic, extra-ocular movements intact, pupils equal and reactive to light bilaterally, mucous membranes moist. Cardiovascular: Heart regular rate and rhythm Chest: Able to complete full sentences, no retractions, no tachypnea Abdomen: abdomen soft, diffuse palpatory abdominal tenderness, non-distended, no organomegaly Musculoskeletal: Pulses present and equal in all extremities, no peripheral edema Motor: no focal deficits noted Neurological: CN II-XII grossly intact, no focal motor or sensory deficits noted Skin: Intact with no visualized rashes Psych: Normal affect and mood Results CBC & Chem 7: 09/17/24 11:15 09/17/24 11:15 Labs: Abnormal Lab Results - Last 24 Hours (Table) 09/17/24 09/17/24 Range/Units 11:15 11:15 RBC 3.94 L (4.30-5.90) m/uL Hgb 12.6 L (13.0-17.5) gm/dL Hct 37.5 L (39.0-53.0) % Glucose 107 H (74-99) mg/dL Assessment and Plan Assessment: 1. Intractable abdominal pain; extensive history of Crohn's disease with ostomy placement in 2012 -CT of the abdomen did not reveal any acute process -Patient is placed on IV fluid hydration and pain control with IV Dilaudid 0.4 mg every 6 hours as needed -Surgery is consulted for further evaluation 2. Renal mass; CT of the abdomen and pelvis reveals enlarging renal mass on left from 4 mm up to 12 mm from last study on 03/04/2021; representing renal cell carcinoma versus enlarging proteinaceous/hemorrhagic cyst -We will obtain urology consult 3. Hypertension; continue with home dose of losartanHCTZ 50-12.5 mg daily 4. Anxiety; BuSpar 10 mg twice daily 5. Chronic pain; patient takes Percocet 10 mg 3 times daily as needed DVT prophylaxis; SCDs CODE STATUS; full code
--- NOTE | 2024-09-17 17:47 | P.GSCN ---
History of Present Illness Consult date: 09/17/24 History of present illness: CHIEF COMPLAINT: Intractable abdominal pain HISTORY OF PRESENT ILLNESS: The patient is a 44-year-old male with a complicated surgical history including Crohn's disease, ileostomy creation with left colectomy. Patient reports all surgery done at [facility] in 2012. He does not follow-up with his colorectal surgeon/surgeon since his surgery. Patient reports that the first time he has had severe intractable left sided abdominal pain which started 4 to 5 days ago. He had been able to eat. No reports of blood in stools. Separately, patient has been seeking reversal of ileostomy. He reports no family members. He manages his general care by himself. He denies any prior bowel obstructions. PAST MEDICAL HISTORY: See list and reviewed PAST SURGICAL HISTORY: See list and reviewed MEDICATIONS: See list and reviewed ALLERGIES: See list and reviewed SOCIAL HISTORY: See list and reviewed FAMILY HISTORY: See list and reviewed REVIEW OF ORGAN SYSTEMS: CONSTITUTIONAL: No fevers or chills. Underweight, BMI 18.0. EYES: Denies any trouble with vision. No glasses. HEENT: No difficulties with hearing. No nosebleeds. No difficulty swallowing. RESPIRATORY: Chronic tobacco abuse disorder. Has asthma. CARDIOVASCULAR: Has hypertensive heart disease. GASTROINTESTINAL: Crohn's disease status post subtotal colectomy. Has gastroesophageal reflux disease. GENITOURINARY: Denies any blood in urine or increased urinary frequency. NEUROLOGICAL: Has chronic pain syndrome. MUSCULOSKELETAL: Has rheumatoid arthritis. Has chronic pain syndrome. SKIN: No current skin cancer. No rash. PSYCHIATRIC: Has depressive disorder. ENDOCRINE: Denies current thyroid disorders. Denies any blood sugar glucose intolerance. HEME/LYMPHATIC: Denies any lumps and bumps around the neck. No recent deep venous thrombosis. ALLERGY/IMMUNOLOGY: No immunoglobulin therapy. No immune deficiencies. BREAST: Denies current breast lumps, pain or nipple discharge. PHYSICAL EXAM: VITALS: Reviewed CONSTITUTIONAL: Well developed and in no acute distress. EYES: Conjuctivae without sclera icterus. Extraocular movements grossly int act. HEAD, EARS, NOSE, THROAT: Moist buccal mucosa. Head is atraumatic, normocephalic. Hears conversational speech. No nasal drainage. Has poor dentition. NECK: Supple. No JV distention. No thyroidomegaly. RESPIRATORY: Non-labored respirations and equal bilateral excursions. No gross wheezes. CARDIOVASCULAR: Palpable 2+ radial pulses. ABDOMEN: Right-sided ileostomy with stool and flatus. Scaphoid abdomen. No peritonitis. LYMPH: No gross neck lymphadenopathy. MUSCULOSKELETAL: No clubbing cyanosis or edema SKIN: Warm and well perfused with good skin turgor. NEUROLOGIC: Cranial nerves II through XII grossly intact. No focal or lateralizing signs. PSYCH: Appropriate affect. Alert and oriented to person, place and time. Displays appropriate insight. CLINCAL LABS: Reviewed. White blood cell count normal. Hemoglobin 12.6. IMAGING: Independently reviewed. CT of the abdomen pelvis independent review demonstrates no bowel obstruction or free fluid. Questionable distention of the left upper quadrant small bowel versus colon. This is my independent interpretation. RADIOLOGY: Report reviewed. CT abdomen pelvis report demonstrates questionable renal cell carcinoma from left renal lesion. RECORDS: previous old records reviewed demonstrates multiple ER visits for abdominal pain in 2020. ASSESSMENT: 1. Abdominal pain, intractable left upper quadrant/left lower quadrant 2. Crohn's disease 3. Ileostomy status status post subtotal colectomy 4. Abnormal CT scan for renal carcinoma PLAN: 1. May benefit from small bowel follow-through as he has thin body habitus which may limit additional pathology. 2. He has abnormal CT scan questionable for renal cell carcinoma and may benefit from urology consultation while inpatient ADVANCE DIRECTIVE: CODE STATUS in chart Thank you for this kind consultation. Past Medical History Past Medical History: GERD/Reflux, Hypertension, Osteoarthritis (OA), Rheumatoid Arthritis (RA) Additional Past Medical History / Comment(s): herniated discs, carpal tunnel, Crohns WITH OSTOMY PLACEMENT DECEMBER 15 2012, pancreatitis History of Any Multi-Drug Resistant Organisms: None Reported, C-DIFF Year Discovered:: unknown MDRO Source:: stool Past Surgical History: Bowel Resection Additional Past Surgical History / Comment(s): OSTOMY PLACEMENT DECEMBER 15 2012 Past Anesthesia/Blood Transfusion Reactions: No Reported Reaction Additional Past Anesthesia/Blood Transfusion Reaction / Comm: DELIRIUM Past Psychological History: Anxiety, Depression Smoking Status: Current some day smoker Past Alcohol Use History: None Reported Past Drug Use History: Marijuana - Past Family History Mother Family Medical History: Hypertension Father Family Medical History: CVA/TIA, Hypertension Medications and Allergies Home Medications Medication Instructions Recorded Confirmed Type oxyCODONE HCL/ACETAMINOPHEN 1 tab PO TID PRN 12/11/14 09/17/24 History [Percocet 10-325 mg] Albuterol Sulfate [Ventolin HFA] 2 puff INHALATION RT-Q4H PRN 12/19/20 09/17/24 History busPIRone HCl [Buspar] 10 mg PO BID 12/19/20 09/17/24 History Losartan-Hctz 50-12.5 mg [Hyzaar 1 tab PO DAILY 09/17/24 09/17/24 History 50-12.5] Omeprazole 40 mg PO DAILY 09/17/24 09/17/24 History Ondansetron Odt [Zofran Odt] 4 mg PO TID PRN 09/17/24 09/17/24 History Allergies Allergy/AdvReac Type Severity Reaction Status Date / Time infliximab [From Remicade] Allergy Anaphylaxis Verified 09/17/24 13:22 lisinopril Allergy Anaphylaxis Verified 09/17/24 13:22 amlodipine AdvReac Swelling Verified 09/17/24 13:22 lactose AdvReac Nausea & Verified 09/17/24 13:22 Vomiting & Diarrhea NSAIDS (Non-Steroidal AdvReac Unknown Verified 09/17/24 13:22 Anti-Inflamma Surgical - Exam Vital Signs Temp Pulse Resp BP Pulse Ox 98.3 F 89 18 138/91 98 09/17/24 10:51 09/17/24 10:51 09/17/24 10:51 09/17/24 10:51 09/17/24 10:51 Results - Labs 09/17/24 11:15 09/17/24 11:15 Abnormal Lab Results - Last 24 Hours (Table) 09/17/24 09/17/24 Range/Units 11:15 11:15 RBC 3.94 L (4.30-5.90) m/uL Hgb 12.6 L (13.0-17.5) gm/dL Hct 37.5 L (39.0-53.0) % Glucose 107 H (74-99) mg/dL Diabetes panel 09/17/24 Range/Units 11:15 Sodium 138 (137-145) mmol/L Potassium 4.0 (3.5-5.1) mmol/L Chloride 107 (98-107) mmol/L Carbon Dioxide 25 (22-30) mmol/L BUN 12 (9-20) mg/dL Creatinine 1.08 (0.66-1.25) mg/dL Glucose 107 H (74-99) mg/dL Calcium 10.2 (8.4-10.2) mg/dL AST 24 (17-59) U/L ALT 10 (4-49) U/L Alkaline Phosphatase 42 (38-126) U/L Total Protein 6.4 (6.3-8.2) g/dL Albumin 4.1 (3.5-5.0) g/dL Calcium panel 09/17/24 Range/Units 11:15 Calcium 10.2 (8.4-10.2) mg/dL Albumin 4.1 (3.5-5.0) g/dL Pituitary panel 09/17/24 Range/Units 11:15 Sodium 138 (137-145) mmol/L Potassium 4.0 (3.5-5.1) mmol/L Chloride 107 (98-107) mmol/L Carbon Dioxide 25 (22-30) mmol/L BUN 12 (9-20) mg/dL Creatinine 1.08 (0.66-1.25) mg/dL Glucose 107 H (74-99) mg/dL Calcium 10.2 (8.4-10.2) mg/dL Adrenal panel 09/17/24 Range/Units 11:15 Sodium 138 (137-145) mmol/L Potassium 4.0 (3.5-5.1) mmol/L Chloride 107 (98-107) mmol/L Carbon Dioxide 25 (22-30) mmol/L BUN 12 (9-20) mg/dL Creatinine 1.08 (0.66-1.25) mg/dL Glucose 107 H (74-99) mg/dL Calcium 10.2 (8.4-10.2) mg/dL Total Bilirubin 0.3 (0.2-1.3) mg/dL AST 24 (17-59) U/L ALT 10 (4-49) U/L Alkaline Phosphatase 42 (38-126) U/L Total Protein 6.4 (6.3-8.2) g/dL Albumin 4.1 (3.5-5.0) g/dL
[2024-09-17] MEDS: busPIRone HCl 10 MG TAB PO SCH (22:01)
[2024-09-18] MEDS: PANTOPRAZOLE 40 MG TABLET PO SCH (08:08)
[2024-09-18] MEDS: LOSARTAN-HCTZ 50-12.5 MG 1 EACH TAB PO SCH (08:08)
[2024-09-18 08:41] LABS: Calcium 8.9 mg/dL (8.7-10.3); Carbon Dioxide 22.2 mmol/L (21.6-31.8); Chloride 111 mmol/L (96-109); Glucose 84 mg/dL (70-110); Sodium 140 mmol/L (135-145)
[2024-09-18 09:08] LABS: Basophils # (A) 0.07 X 10*3/uL (0.00-0.10); Basophils % (A) 1.3 %; Eosinophils # (A) 0.27 X 10*3/uL (0.04-0.35); Eosinophils % (A) 5.1 %; HCT 32.7 % (39.6-50.0); HGB 11.1 g/dL (13.0-17.0); Lymphocytes # (A) 1.67 X 10*3/uL (0.90-5.00); Lymphocytes % (A) 31.4 %; MCH 31.5 pg (27.0-32.0); MCHC 33.9 g/dL (32.0-37.0); MCV 92.9 FL (80.0-97.0); Mean Platelet Volume 9.5 FL (9.5-12.2); Monocytes % (A) 7.5 %; NRBC Per 100 WBC 0 X 10*3/uL (0.00-0.01); Neutrophils % (A) 54.5 %; Platelet Count 165 X 10*3/uL (140-440); RBC 3.52 X 10*6/uL (4.40-5.60); RDW 12.4 % (11.5-14.5); WBC 5.32 X 10*3/uL (4.50-10.00)
[2024-09-18] MEDS: HYDROcodone/APAP 5-325MG 1 EACH TAB PO PRN (11:39)
[2024-09-18 12:19] VITALS: BMI 18.0
--- NOTE | 2024-09-18 12:30 | FL ---
EXAMINATION TYPE: FL UGI w small bowel DATE OF EXAM: 09/18/2024 COMPARISON: None CLINICAL INDICATION: Male, 44 years old with history of abdominal pain, crohns disease; [facility], TECHNIQUE: A single contrast UGI study is performed with small bowel follow through. A total of 46 seconds of fluoroscopic time was utilized during procedure and 21 images obtained. Total dose area p roduct (DAP) in uGy*m?, mGy*cm? (or similar): Not provided. FINDINGS: Algorithm Design Engineer image of the abdomen shows no gross abnormality. The esophagus shows normal motility and emptying into the stomach. No evidence of hiatal hernia or s tricture noted. The stomach shows normal distensibility, peristalsis, and mucosal folds. No evidence of any mass or ulcer disease. No significant esophageal reflux was seen during real time performance of this study. The duodenal bulb and sweep are unremarkable. The small bowel study shows normal transit to the ileostomy. There is normal mucosal fold pattern th roughout the small bowel. There is no evidence of any stricture or filling defect noted. IMPRESSION: 1. Normal transit time with no evidence of obstruction throughout the small bowel. 2. No acute process. If symptoms persist consider EGD. [facility], , 09/18/2024 12:28 PM
[2024-09-18] MEDS: PANTOPRAZOLE 40 MG/10 ML VIAL IVP SCH (15:16)
--- NOTE | 2024-09-18 15:44 | P.PN ---
Subjective Progress Note Date: 09/18/24 CHIEF COMPLAINT: Intractable abdominal pain HISTORY OF PRESENT ILLNESS: The patient is a 44-year-old male with a complicated surgical history including Crohn's disease, ileostomy creation with left colecto my. Patient's ileostomy is functioning. He continues to have diffuse abdominal pain. Nausea has resolved. Patient did have a small bowel follow-through completed that reported normal transit time with no evidence of obstruction throughout the small bowel. No acute process. No evidence of intra-abdominal fistulas. Afebrile. WBC 5.32 PHYSICAL EXAM: VITAL SIGNS: Reviewed GENERAL: Well-developed in no acute distress. HEENT: No sclera icterus. Extraocular movements grossly intact. Moist buccal mucosa. Head is atraumatic, normocephalic. Hears conversational speech. No nasal drainage. NECK: Supple without lymphadenopathy. CHEST: Non-labored respirations and equal bilateral excursions. CARDIOVASCULAR: Palpable 2+ radial pulses. ABDOMEN: Soft. Nondistended. Diffuse tenderness. Ileostomy with stool present MUSCULOSKELETAL: No clubbing or cyanosis. NEUROLOGIC: No focal or lateralizing signs. Cranial nerves II through XII grossly intact. PSYCH: Appropriate affect. Alert and oriented to person, place and time. SKIN: Well perfused. Good skin turgor. ASSESSMENT: 1. Abdominal pain 2. Crohn's disease 3. Ileostomy status status post subtotal colectomy 4. Abnormal CT scan for renal carcinoma PLAN: -Agree with urology consult regarding possible renal cell carcinoma noted on CT -Patient had small bowel follow-through completed no evidence of bowel obstruction. No evidence of intra-abdominal fistulas. Will advance diet to regular. -No surgical intervention planned -Surgical service will sign off. Please call with any questions or concerns Physician Mechanical Energy Engineer note has been reviewed by physician. Signing provider agrees with the documented findings, assessment, and plan of care. As above. Please see additional documentation below. CHIEF COMPLAINT: Abdominal pain HISTORY OF PRESENT ILLNESS: The patient is a 44-year-old male with Crohn disease , status post ileostomy. Patient presented with tractable abdominal pain. He reports difficulty tolerating solid food. ROS: No fevers or chills. No new chest pain. No productive sputum PHYSICAL EXAM: VITAL SIGNS: Reviewed CONSTITUTIONAL: Well developed and in no acute distress. EYES: Conjuctivae without sclera icterus. Extraocular movements grossly intact. HEAD, EARS, NOSE, THROAT: Moist buccal mucosa. Head is atraumatic, normocephalic. Hears conversational speech. No nasal drainage. Poor dentition. Edentulous upper teeth. RESPIRATORY: Non-labored respirations and equal bilateral excursions. CARDIOVASCULAR: Palpable 2+ radial pulses. ABDOMEN: Scaphoid. Ileostomy with stool and flatus. No diffuse peritonitis. Tender epigastrium bilateral lower abdomen. MUSCULOSKELETAL: No gross deformity of the lower extremities noted. No clubbing. No cyanosis. SKIN: Good skin turgor. Well perfused. NEUROLOGIC: Cranial nerves II through XII grossly intact. No focal or lateralizing signs. PSYCH: Appropriate affect. Alert and oriented to person, place and time. CLINICAL LABS: Reviewed. WBC normal. STUDIES: Small bowel follow-through independent review demonstrates no signs of obstruction. No presence of fistulous. This is my independent interpretation. ASSESSMENT: 1. Intractable abdominal pain 2. Crohn's disease 3. Abnormal CT scan for renal cell carcinoma PLAN: 1. Risk for intra-abdominal adhesions were described which can be managed as outpatient. 2. At this time diet as tolerated. Objective - Vital Signs Vital signs: Vital Signs Temp 98 F 09/18/24 15:08 Pulse 47 L 09/18/24 15:08 Resp 17 09/18/24 15:08 BP 150/85 09/18/24 15:08 Pulse Ox 99 09/18/24 15:08 FiO2 Intake & Output 09/17/24 09/18/24 09/18/24 18:59 06:59 18:59 Weight 55.338 kg 55.338 kg Other: # Voids 3 1 # Bowel Movements 1 - Labs CBC & Chem 7: 09/19/24 04:17 09/19/24 04:17 Labs: Abnormal Lab Results - Last 24 Hours (Table) 09/18/24 09/18/24 Range/Units 04:42 04:42 RBC 3.52 L (4.40-5.60) X 10*6/uL Hgb 11.1 L (13.0-17.0) g/dL Hct 32.7 L (39.6-50.0) % Chloride 111 H (96-109) mmol/L BUN 7.0 L (9.0-27.0) mg/dL BUN/Creatinine Ratio 7.00 L (12.00-20.00) Ratio
[2024-09-18] MEDS: ONDANSETRON 4 MG/2 ML VIAL IVP PRN (15:49)
--- NOTE | 2024-09-18 18:39 | P.GSCN ---
History of Present Illness Consult date: 09/18/24 Reason for Consult: Left renal mass History of present illness: This is a 44-year-old male admitted to the hospital with abdominal pain. Tony diaz does have a history of Crohn's disease. Urology is consulted for incidental finding of a 1.2 cm left-sided renal mass. He denies any left flank pain. Denies any gross hematuria or dysuria or any voiding dysfunction. No known family history of renal malignancy. No previous urological surgeries. No previous history of UTIs or kidney stones. On CT it measured 1.2 cm, was unclear if the lesion is a solid mass versus a cystic lesion. Review of Systems - Constitutional Denies fever, Denies weight loss - EENT Ears, nose, mouth and throat: Denies dysphagia - Cardiovascular Denies chest pain, Denies shortness of breath - Respiratory Denies cough, Denies 7 - Gastrointestinal Reports abdominal pain - Genitourinary Denies dysuria, Denies flank pain, Denies hematuria - Neurological Denies headaches, Denies syncope Past Medical History Past Medical History: GERD/Reflux, Hypertension, Osteoarthritis (OA), Rheumatoid Arthritis (RA) Additional Past Medical History / Comment(s): herniated discs, carpal tunnel, Crohns WITH OSTOMY PLACEMENT DECEMBER 15 2012, pancreatitis History of Any Multi-Drug Resistant Organisms: None Reported, C-DIFF Year Discovered:: unknown MDRO Source:: stool Past Surgical History: Bowel Resection Additional Past Surgical History / Comment(s): OSTOMY PLACEMENT DECEMBER 15 2012 Past Anesthesia/Blood Transfusion Reactions: No Reported Reaction Additional Past Anesthesia/Blood Transfusion Reaction / Comm: DELIRIUM Past Psychological History: Anxiety, Depression Smoking Status: Current some day smoker Past Alcohol Use History: None Reported Past Drug Use History: Marijuana - Past Family History Mother Family Medical History: Hypertension Father Family Medical History: CVA/TIA, Hypertension Medications and Allergies Home Medications Medication Instructions Recorded Confirmed Type oxyCODONE HCL/ACETAMINOPHEN 1 tab PO TID PRN 12/11/14 09/17/24 History [Percocet 10-325 mg] Albuterol Sulfate [Ventolin HFA] 2 puff INHALATION RT-Q4H PRN 12/19/20 09/17/24 History busPIRone HCl [Buspar] 10 mg PO BID 12/19/20 09/17/24 History Losartan-Hctz 50-12.5 mg [Hyzaar 1 tab PO DAILY 09/17/24 09/17/24 History 50-12.5] Omeprazole 40 mg PO DAILY 09/17/24 09/17/24 History Ondansetron Odt [Zofran Odt] 4 mg PO TID PRN 09/17/24 09/17/24 History Allergies Allergy/AdvReac Type Severity Reaction Status Date / Time infliximab [From Remicade] Allergy Anaphylaxis Verified 09/17/24 13:22 lisinopril Allergy Anaphylaxis Verified 09/17/24 13:22 amlodipine AdvReac Swelling Verified 09/17/24 13:22 lactose AdvReac Nausea & Verified 09/17/24 13:22 Vomiting & Diarrhea NSAIDS (Non-Steroidal AdvReac Unknown Verified 09/17/24 13:22 Anti-Inflamma Surgical - Exam Vital Signs Temp Pulse Resp BP Pulse Ox 98.3 F 89 18 138/91 98 09/17/24 10:51 09/17/24 10:51 09/17/24 10:51 09/17/24 10:51 09/17/24 10:51 - General no distress, moderate pain - Eyes normal ocular movement, no pale - ENT normal nares, normal mucosa - Respiratory normal expansion, normal respiratory effort - Psychiatric oriented to time, oriented to person, oriented to place Results - Labs 09/18/24 04:42 09/18/24 04:42 Abnormal Lab Results - Last 24 Hours (Table) 09/18/24 09/18/24 Range/Units 04:42 04:42 RBC 3.52 L (4.40-5.60) X 10*6/uL Hgb 11.1 L (13.0-17.0) g/dL Hct 32.7 L (39.6-50.0) % Chloride 111 H (96-109) mmol/L BUN 7.0 L (9.0-27.0) mg/dL BUN/Creatinine Ratio 7.00 L (12.00-20.00) Ratio Diabetes panel 09/18/24 Range/Units 04:42 Sodium 140 (135-145) mmol/L Potassium 4.0 (3.5-5.5) mmol/L Chloride 111 H (96-109) mmol/L Carbon Dioxide 22.2 (21.6-31.8) mmol/L BUN 7.0 L (9.0-27.0) mg/dL Creatinine 1.0 (0.6-1.5) mg/dL Glucose 84 (70-110) mg/dL Calcium 8.9 (8.7-10.3) mg/dL Calcium panel 09/18/24 Range/Units 04:42 Calcium 8.9 (8.7-10.3) mg/dL Pituitary panel 09/18/24 Range/Units 04:42 Sodium 140 (135-145) mmol/L Potassium 4.0 (3.5-5.5) mmol/L Chloride 111 H (96-109) mmol/L Carbon Dioxide 22.2 (21.6-31.8) mmol/L BUN 7.0 L (9.0-27.0) mg/dL Creatinine 1.0 (0.6-1.5) mg/dL Glucose 84 (70-110) mg/dL Calcium 8.9 (8.7-10.3) mg/dL Adrenal panel 09/18/24 Range/Units 04:42 Sodium 140 (135-145) mmol/L Potassium 4.0 (3.5-5.5) mmol/L Chloride 111 H (96-109) mmol/L Carbon Dioxide 22.2 (21.6-31.8) mmol/L BUN 7.0 L (9.0-27.0) mg/dL Creatinine 1.0 (0.6-1.5) mg/dL Glucose 84 (70-110) mg/dL Calcium 8.9 (8.7-10.3) mg/dL Assessment and Plan Assessment: 44-year-old male with history of incidentally found 1.2 cm left-sided renal lesion. This was incidentally fine and he is asymptomatic -Will obtain an MRI of the abdomen to further evaluate
--- NOTE | 2024-09-18 22:49 | PN ---
PROGRESS NOTE DATE OF SERVICE: 09/18/2024 SUBJECTIVE: This is a 44-year-old gentleman, who was admitted with intractable abdominal pain, also had history of Crohn disease. The patient had ostomy placed. The patient had small- bowel follow-through today, which showed normal transit time with no obstruction. No chest pain. No palpitation. OBJECTIVE: VITAL SIGNS: Pulse is 47, blood pressure 158/77, respirations 18. CHEST: Clear to auscultation. CARDIOVASCULAR: S1, S2. ABDOMEN: Soft, mild diffuse tenderness. No guarding. No rigidity. LABORATORY DATA: Noted. ASSESSMENT: 1. Severe intractable abdominal pain with history of Crohn disease with possible adhesions. 2. Renal mass. 3. Hypertension. 4. Anxiety. 5. Chronic pain syndrome. RECOMMENDATIONS: Recommend to continue current management and continue symptomatic treatment. Otherwise, we will closely follow with Surgery. Symptomatic treatment for the pain. Advance diet if tolerated. Further recommendations to follow. MMODL / DANIALN: [id number] /
[2024-09-19 08:20] LABS: Basophils # (A) 0.06 X 10*3/uL (0.00-0.10); Basophils % (A) 1.3 %; Eosinophils # (A) 0.22 X 10*3/uL (0.04-0.35); Eosinophils % (A) 4.9 %; HCT 32.4 % (39.6-50.0); HGB 10.9 g/dL (13.0-17.0); Lymphocytes # (A) 1.53 X 10*3/uL (0.90-5.00); Lymphocytes % (A) 34.3 %; MCH 31.6 pg (27.0-32.0); MCHC 33.6 g/dL (32.0-37.0); MCV 93.9 FL (80.0-97.0); Mean Platelet Volume 9.7 FL (9.5-12.2); Monocytes # (A) 0.37 X 10*3/uL (0.20-1.00); Monocytes % (A) 8.3 %; NRBC Per 100 WBC 0 X 10*3/uL (0.00-0.01); Neutrophils # (A) 2.27 X 10*3/uL (1.80-7.70); Platelet Count 141 X 10*3/uL (140-440); RBC 3.45 X 10*6/uL (4.40-5.60); RDW 12.4 % (11.5-14.5); WBC 4.46 X 10*3/uL (4.50-10.00)
[2024-09-19] MEDS ORDERED: PROPOFOL 10 MG/ML 20 ML VIAL IV ONE (08:22)
[2024-09-19] MEDS ORDERED: LIDOCAINE 1% INJ 10MG/ML (20 ML MDV) ONE (08:22)
[2024-09-19] MEDS: IV FLUID CONTINUATION 1,000 ML IV ONE (08:26)
[2024-09-19 08:46] LABS: BUN/Creat Ratio 5.27 Ratio (12.00-20.00); Blood Urea Nitrogen 5.8 mg/dL (9.0-27.0); Carbon Dioxide 24.6 mmol/L (21.6-31.8); Chloride 110 mmol/L (96-109); Glucose 90 mg/dL (70-110); Potassium 4.1 mmol/L (3.5-5.5); Sodium 142 mmol/L (135-145)
--- NOTE | 2024-09-19 09:15 | P.PN ---
Progress Note - Text Progress Note Date: 09/18/24 Patient seen and evaluated. Small bowel follow-through was remarkable for questionable findings of the stomach requesting upper endoscopy per radiologist. Patient does confirm epigastric including bilateral lower abdominal pain and pre-existing history of Crohn's disease. Will proceed with upper endoscopy per recommendations of radiologist. Otherwise, patient at high risk for intra- abdominal adhesions which can be managed as outpatient. Patient have more pressing concerns of possible renal cancer or malignancy which would warrant further workup while inpatient. All questions addressed.
--- NOTE | 2024-09-19 09:18 | P.PCN ---
Date of Procedure: 09/19/24 Description of Procedure: PREOPERATIVE DIAGNOSIS: Abnormal small bowel follow-through for gastritis Epigastric abdominal pain Underweight Crohn's disease POSTOPERATIVE DIAGNOSIS: Gastritis, chronic Duodenitis OPERATION: Esophagogastroduodenoscopy with cold forceps biopsies along esophagus, antrum and duodenum SURGEON: Liliane Aguayo MD ANESTHESIA: MAC. INDICATIONS: The patient is a 44-year-old male who presents with intractable epigastric abdominal pain and recent radiological studies demonstrating gastritis with upper endoscopy advised per radiologist. Patient has previously history of Crohn's disease. Benefits and risks of the procedure were described. Informed consent was obtained. DESCRIPTION: The patient was brought into the endoscopy suite and laid in the left lateral decubitus position. An Olympus gastroscope was passed along the posterior oropharynx down to the distal esophagus where the squamocolumnar junction was encountered at 42 cm from the incisors. The stomach was entered and no bile reflux was found. Additional findings are listed below. Biopsies with cold forceps were obtained of the antrum. The first through third portion of the duodenum was examined. Retroflexion of the scope confirmed Hill grade 3 lower esophageal valve. The squamocolumnar junction demonstrated LA grade B erosive esophagitis. The stomach was desufflated. The patient tolerated the procedure well. FINDINGS: Squamocolumnar junction 40 cm from the incisors. Diaphragmatic hiatus at 40 cm. Hill grade 2 lower esophageal valve. LA grade B erosive esophagitis. Biopsies obtained Biopsies obtained of the duodenum for duodenitis Chronic gastritis with biopsies obtained. RECOMMENDATIONS: Upper endoscopy as needed. Will start Protonix 40 mg daily Outpatient follow-up for abdominal adhesions described
--- NOTE | 2024-09-19 09:20 | P.PN ---
Progress Note - Text Progress Note Date: 09/19/24 Imaging studies reviewed the patient without findings of coloenteric or enteric enteric fistulas from Crohn's disease. All studies essentially without acute abdomen. Upper endoscopy completed with biopsies obtained and may be followed up as outpatient. Do recommend assessment for renal cell carcinoma. No further surgical intervention needed at this time. Outpatient follow-up described. Diet as tolerated. Continue Protonix as outpatient. Will sign off. Please reconsult if needed
--- NOTE | 2024-09-19 14:08 | MR ---
EXAMINATION TYPE: MR abdomen wo/w con DATE OF EXAM: 09/19/2024 1:41 PM INDICATION: Patient age:Male; 44 years old; Reason for study: Left renal mass; [facility]. COMPARISON: CT abdomen and pelvis 09/17/2024, 12/06/2021, 03/04/2021 TECHNIQUE: Multiplanar multi-sequence imaging was performed without and with IV contrast. The patien t was given 5 ccs of Gadobutrol intravenously and dynamic imaging was performed. Post IV contrast sub traction images were also submitted for review. FINDINGS: LOWER CHEST: Bilateral lower lobe subsegmental atelectasis. ABDOMEN Liver: Unremarkable. Gallbladder and Bile ducts: Unremarkable. Pancreas: Unremarkable. Spleen: Unremarkable. Adrenal glands: Unremarkable. Kidneys: No hydronephrosis. Few bilateral cortical nonenhancing cysts identified with largest within the left kidney measuring up to 1.1 cm. Few bilateral cortical T1 isointense lesions identified with largest on the right measuring 1.6 cm and largest on the left measuring 1.7 cm. The larger lesions jamie th demonstrate some thin septal enhancement. The remaining do not demonstrate enhancement. Stomach and Bowel: Postsurgical changes with right lower quadrant ostomy. No evidence for bowel obstr uction. Peritoneum: No evidence of pneumoperitoneum or adenopathy. Small amount of free fluid in the visuali zed pelvis. Vasculature: Unremarkable. No aortic aneurysm. Abdominal wall: Unremarkable. Musculoskeletal: The osseous structures appear intact. 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 Within both kidneys are cysts with thin enhancing septae most consistent with a Bosniak IIF classification. Follow-up MRI in 6 months is recommended. [facility], , 09/19/2024 2:06 PM
[2024-09-19] MEDS: HYDROmorphone 1 MG/ML 1 ML SYRINGE IVP PRN (21:08)
--- NOTE | 2024-09-19 21:55 | PN ---
PROGRESS NOTE DATE OF SERVICE: 09/19/2024 SUBJECTIVE: This is a 44-year-old gentleman admitted with severe intractable abdominal pain, also had a Crohn disease. EGD showed acute on chronic gastritis. Abdomen MRI showed renal cyst. Follow up MRI has been recommended. There is no history of any fever, rigors, or chills at this time. PAST MEDICAL HISTORY: Reviewed. PHYSICAL EXAMINATION: VITAL SIGNS: Pulse is 51, blood pressure 158/90, respirations 17. CHEST: Clear to auscultation. CARDIOVASCULAR: S1, S2. ABDOMEN: Soft, nontender. No guarding. LABORATORY DATA: Reviewed. ASSESSMENT: 1. Severe intractable abdominal pain with history of Crohn disease with possible adhesions. 2. Chronic gastritis and duodenitis in the recent EGD. 3. Renal mass and cyst. 4. Hypertension. 5. Anxiety. 6. Chronic pain syndrome. RECOMMENDATIONS: Recommend to continue current management and continue symptomatic treatment. Otherwise, recommend outpatient MRI as a followup. Closely follow with Surgery. I would recommend repeat labs. Advance diet. Possible discharge in the next 24 hours. MMODL / IJN: [id number] /
[2024-09-20 01:49] VITALS: TEMP 98.3
[2024-09-20 07:56] VITALS: BP 150/76; PULSE 47; RESP 16
[2024-09-20 09:28] LABS: BUN/Creat Ratio 8.27 Ratio (12.00-20.00); Blood Urea Nitrogen 9.1 mg/dL (9.0-27.0); Calcium 8.9 mg/dL (8.7-10.3); Carbon Dioxide 24.3 mmol/L (21.6-31.8); Chloride 106 mmol/L (96-109); Glucose 94 mg/dL (70-110); Potassium 3.8 mmol/L (3.5-5.5); Sodium 141 mmol/L (135-145)
[2024-09-20 09:37] LABS: Basophils # (A) 0.06 X 10*3/uL (0.00-0.10); Basophils % (A) 1.1 %; Eosinophils # (A) 0.28 X 10*3/uL (0.04-0.35); HCT 31.4 % (39.6-50.0); HGB 10.6 g/dL (13.0-17.0); Lymphocytes # (A) 1.44 X 10*3/uL (0.90-5.00); Lymphocytes % (A) 25.7 %; MCH 31.7 pg (27.0-32.0); MCHC 33.8 g/dL (32.0-37.0); Mean Platelet Volume 9.7 FL (9.5-12.2); Monocytes # (A) 0.47 X 10*3/uL (0.20-1.00); Monocytes % (A) 8.4 %; NRBC Per 100 WBC 0 X 10*3/uL (0.00-0.01); Neutrophils # (A) 3.34 X 10*3/uL (1.80-7.70); Neutrophils % (A) 59.4 %; Platelet Count 151 X 10*3/uL (140-440); RBC 3.34 X 10*6/uL (4.40-5.60); RDW 12.5 % (11.5-14.5); WBC 5.61 X 10*3/uL (4.50-10.00)
--- NOTE | 2024-09-20 11:24 | P.PN ---
Subjective Progress Note Date: 09/20/24 Principal diagnosis: Renal mass Underwent an MRI yesterday, left renal lesion is consistent with a Bosniak 2F cyst Objective - Vital Signs Vital signs: Vital Signs Temp 98.3 F 09/20/24 07:15 Pulse 47 L 09/20/24 07:15 Resp 16 09/20/24 07:15 BP 150/76 09/20/24 07:15 Pulse Ox 99 09/20/24 07:15 FiO2 Intake & Output 09/19/24 09/20/24 09/20/24 18:59 06:59 18:59 Intake Total 340 480 Balance 340 480 Intake: IV 100 Oral 240 480 Other: # Voids 3 1 - Constitutional General appearance: Present: no acute distress - Gastrointestinal General gastrointestinal: Present: soft. Absent: distended, tenderness - Psychiatric Psychiatric: Present: A&O x's 3 - Labs CBC & Chem 7: 09/20/24 03:14 09/20/24 03:14 Labs: Abnormal Lab Results - Last 24 Hours (Table) 09/20/24 09/20/24 Range/Units 03:14 03:14 RBC 3.34 L (4.40-5.60) X 10*6/uL Hgb 10.6 L (13.0-17.0) g/dL Hct 31.4 L (39.6-50.0) % BUN/Creatinine Ratio 8.27 L (12.00-20.00) Ratio Assessment and Plan Assessment: 44-year-old male with history of incidentally found 1.2 cm left-sided renal lesion. This was incidentally found and he is asymptomatic. Reviewed the images, agree with the radiologist finding, lesion is consistent with a Bosniak 2F cyst. Discussed with him for those lesions it needs to be continue observed, he will need follow-up MRI in 6 months, which he verbalized understanding -Okay for discharge from urology standpoint, will need outpatient follow-up in 3 to 4 months, at that point we will set him up for an outpatient MRI
--- NOTE | 2024-09-20 18:16 | DS ---
DISCHARGE SUMMARY FINAL DIAGNOSES: 1. Severe intractable abdominal pain with history of Crohn disease with possible adhesions. 2. Chronic gastritis and duodenitis in the recent EGD. 3. Renal mass and cyst. 4. Hypertension. 5. Anxiety. DISCHARGE DISPOSITION: The patient will be discharged in stable condition and guarded prognosis. HISTORY OF PRESENT ILLNESS: This 44-year-old gentleman admitted with significant abdominal pain, treated symptomatically, EGD showed chronic gastritis, biopsy pending, and the patient had renal cyst on MRI. Dr. Borjas thought the lesion is consistent with a Bosniak 2F cyst. Recommended to follow up outpatient in 6 months with Urology. PHYSICAL EXAMINATION: VITAL SIGNS: Stable. CARDIOVASCULAR: S1 and S2. ABDOMEN: Soft. The patient was discharged stable and guarded prognosis. Continue the oxycodone and attend the Pain Clinic and follow with Dr. Rodríguez and Surgery in the outpatient setting and also with Urology in the outpatient setting. MMODL / IJN: [id number] /
== END 2024-09-20 13:24 | disposition home or self-care (01) | DRG 392 ==
LOC: EC 10:42 → 6NMEDSUR 13:14 → OBSVTOIN 09-18 14:11
PROVIDERS: ADMIT Hospitalist; ATTEND Hospitalist
PROC: 0DB78ZX Excision of Stomach, Pylorus, Via Natural or Artificial Opening Endoscopic, Diagnostic (ICD-10-PCS; 2024-09-19)
PROC: 0DB58ZX Excision of Esophagus, Via Natural or Artificial Opening Endoscopic, Diagnostic (ICD-10-PCS; 2024-09-19)
PROC: 0DB98ZX Excision of Duodenum, Via Natural or Artificial Opening Endoscopic, Diagnostic (ICD-10-PCS; principal; 2024-09-19 09:05)
DX: K29.50 Unspecified chronic gastritis without bleeding (principal); K22.10 Ulcer of esophagus without bleeding; K50.918 Crohn's disease, unspecified, with other complication; Z68.1 Body mass index [BMI] 19.9 or less, adult; F32.A Depression, unspecified; M06.9 Rheumatoid arthritis, unspecified; I11.9 Hypertensive heart disease without heart failure; R63.6 Underweight; K29.80 Duodenitis without bleeding; G89.4 Chronic pain syndrome; K21.9 Gastro-esophageal reflux disease without esophagitis; F17.210 Nicotine dependence, cigarettes, uncomplicated; F41.9 Anxiety disorder, unspecified; N28.1 Cyst of kidney, acquired; N28.89 Other specified disorders of kidney and ureter; Z90.49 Acquired absence of other specified parts of digestive tract; Z93.2 Ileostomy status; Z87.19 Personal history of other diseases of the digestive system; Z79.899 Other long term (current) drug therapy
CPT/HCPCS: 36415; 43239; 74177; 74183; 74240; 74248; 80048; 80053; 83690; 85025; 85652; 86140; 88305; 96361; 96374; 96375; 96376; 99285